=== PATIENT | female | born 1975 | race Caucasian/White ===

== ENCOUNTER 2024-06-07 09:37 | Inpatient (IN) ==
--- NOTE | 2024-05-08 12:37 | PAT Medication Instructions ---
Medication Instructions Date of Service May 08, 2024 Home Medications Medication Instructions Recorded cyclobenzaprine 10 mg tablet 10 mg PO HS PRN spasms #30 tabs 10/08/22 ondansetron 4 mg disintegrating 4 mg PO Q6H PRN nausea and 11/09/22 tablet vomiting #20 tabs Wheelchair (Manual) #1 ea 06/23/23 Medication List: acyclovir 400 mg tablet 400 mg PO BID amitriptyline 150 mg tablet 150 mg PO HS chlorhexidine gluconate 0.12 % mouthwash 1 applic PO BID cyclobenzaprine 10 mg tablet 10 mg PO TID PRN Pain duloxetine 60 mg capsule,delayed release 120 mg PO QAM fluoride (sodium) 1.1 % dental cream (SF 5000 Plus) 1 applic dental BID fluticasone propionate 50 mcg/actuation nasal spray,suspension 1 spray intranasal QAM PRN Nasal Congestion ibuprofen 800 mg tablet 800 mg PO QAM PRN Pain levothyroxine 75 mcg tablet 75 mcg PO QAM methylprednisolone 4 mg tablet (Medrol) 4 mg PO QAM mometasone 0.1 % topical cream 1 applic topical UD mycophenolate mofetil 250 mg capsule 500 mg PO BID chest inflammation nystatin 100,000 unit/mL oral suspension 100,000 unit PO UD PRN Skin Irritation omeprazole 40 mg capsule,delayed release 40 mg PO QAM pilocarpine HCl 7.5 mg tablet (Salagen (pilocarpine)) 7.5 mg PO TID pramipexole 0.25 mg tablet 0.75 mg PO HS Lactobacillus acidophilus 250 million cell capsule (Probiotic Acidophilus) 1,000 mmu cells PO QAM ferrous sulfate 140 mg (45 mg iron) tablet,extended release 140 mg PO QAM cyclobenzaprine 10 mg tablet 10 mg PO HS PRN spasms ondansetron 4 mg disintegrating tablet 4 mg PO Q6H PRN nausea and vomiting methadone 10 mg tablet 103 mg PO QAM apple cider vinegar 300 mg tablet 300 mg PO QAM belimumab 200 mg/mL subcutaneous auto-injector (Benlysta) 200 mg subcut WK bisacodyl 5 mg tablet,delayed release (Dulcolax (bisacodyl)) 5 mg PO HS PRN Constipation magnesium 200 mg tablet 400 mg PO DAILY nadolol 20 mg tablet 20 mg PO QAM naloxegol 25 mg tablet (Movantik) 25 mg PO QAM nicotine 5 mg/16 hr daily transdermal patch 5 mg transdermal DAILY scopolamine base 1 mg over 3 days transdermal patch 1 patch transdermal Q72H PRN Nausea And Vomiting zinc 10 mg tablet 10 mg PO DAILY MEDICATION INSTRUCTIONS: Continue as directed fluoride (sodium) 1.1 % dental cream (SF 5000 Plus) 1 applic dental BID fluticasone propionate 50 mcg/actuation nasal spray,suspension 1 spray intranasal QAM PRN Nasal Congestion nicotine 5 mg/16 hr daily transdermal patch 5 mg transdermal DAILY (do not apply near surgical area day of surgery) scopolamine base 1 mg over 3 days transdermal patch 1 patch transdermal Q72H PRN Nausea And Vomiting chlorhexidine gluconate 0.12 % mouthwash 1 applic PO BID (do not swallow AM of surgery) mometasone 0.1 % topical cream 1 applic topical UD (do not apply near surgical area day of surgery) nystatin 100,000 unit/mL oral suspension 100,000 unit PO UD PRN Skin Irritation (do not swallow AM of surgery) ASK your surgeon for instructions ibuprofen 800 mg tablet 800 mg PO QAM PRN Pain STOP taking 2 weeks before surgery apple cider vinegar 300 mg tablet 300 mg PO QAM DO NOT take the morning of surgery zinc 10 mg tablet 10 mg PO DAILY Lactobacillus acidophilus 250 million cell capsule (Probiotic Acidophilus) 1,000 mmu cells PO QAM ferrous sulfate 140 mg (45 mg iron) tablet,extended release 140 mg PO QAM magnesium 200 mg tablet 400 mg PO DAILY pilocarpine HCl 7.5 mg tablet (Salagen (pilocarpine)) 7.5 mg PO TID naloxegol 25 mg tablet (Movantik) 25 mg PO QAM Take morning of surgery With a small sip of water, OTHERWISE NOTHING TO EAT OR DRINK AFTER MIDNIGHT: cyclobenzaprine 10 mg tablet 10 mg PO TID PRN Pain acyclovir 400 mg tablet 400 mg PO BID levothyroxine 75 mcg tablet 75 mcg PO QAM duloxetine 60 mg capsule,delayed release 120 mg PO QAM methylprednisolone 4 mg tablet (Medrol) 4 mg PO QAM ondansetron 4 mg disintegrating tablet 4 mg PO Q6H PRN nausea and vomiting nadolol 20 mg tablet 20 mg PO QAM omeprazole 40 mg capsule,delayed release 40 mg PO QAM Take evening before surgery cyclobenzaprine 10 mg tablet 10 mg PO TID PRN Pain acyclovir 400 mg tablet 400 mg PO BID cyclobenzaprine 10 mg tablet 10 mg PO HS PRN spasms pramipexole 0.25 mg tablet 0.75 mg PO HS amitriptyline 150 mg tablet 150 mg PO HS ondansetron 4 mg disintegrating tablet 4 mg PO Q6H PRN nausea and vomiting bisacodyl 5 mg tablet,delayed release (Dulcolax (bisacodyl)) 5 mg PO HS PRN Constipation pilocarpine HCl 7.5 mg tablet (Salagen (pilocarpine)) 7.5 mg PO TID Other Notes Check with Prescriber for Instructions: belimumab 200 mg/mL subcutaneous auto-injector (Benlysta) 200 mg subcut WK mycophenolate mofetil 250 mg capsule 500 mg PO BID chest inflammation methadone 10 mg tablet 103 mg PO QAM If you have any questions please call us at [phone] or [phone] or [phone] or [phone]
--- NOTE | 2024-05-14 13:28 | Anesthesiology Consultation ---
Date of Service May 14, 2024 Assessment & Plan (1) Encounter for pre-operative examination: - awaiting [facility] PCP and cardiology clearances. Optimization forms and PAT testing to be faxed to the offices. - hyponatremia at 128. I called [facility] PCP office and spoke with nurse Desai regarding Na at 128 and episodes of presyncope. She advised will send message to Dr. Mary Lang listed as PCP in their system. I also contacted [facility] cardiology and Katelynn confirmed she will relay message to cardiology provider for further evaluation/management. - 3 episodes of presyncope over past 6 months-most recent episode last week- patient states takes BP and notes is usually 70s/50s when feeling lightheaded- states that she feels alert and will sit down and eat which improves symptoms- notes she is eating one meal daily due to GI symptoms/uterine adenomyosis-pelvic ultrasound scheduled later this week at [facility] and has upcoming appointment with [facility] per patient. Denies dizziness/lightheadedness/presyncope today. Denies falls or notifying cardiology of these symptoms/signs. She was advised to contact her PCP and cardiology offices regarding the combination of these symptoms/signs and was advised clearance will be needed. She verbalized understanding and denied questions or concerns. - check urine test STAT am DOS. - neurology office visit 02/23/24: "...She reports that she sleepwalks and that she has significant difficulty maintaining sleep. She also complains of memory issues...scores 25/30 on cognitive assessment which is consistent with mild cognitive impairment, borderline for normal. We discussed her abnormal sleep pattern and she is in agreement to proceed with an EEG routine study to evaluate for seizure or seizure potential...Today she scores 25/30 on cognitive asses sment. She refuses MRI brain at this time. Vitamin B12 and TSH checked recently were normal. #2 sleepwalking and transient amnesia. We will obtain an EEG routine study to rule out seizure or seizure potential. We will also refer for sleep medicine evaluation..." EEG not completed and patient did not keep follow-up appointment. - cardiology office note 02/13/24: "...presents today for a second opinion regarding chest pain and abnormal EKG. Previously seen at [facility] with negative nuclear stress test last month. Long QT based on previous and recent EKGs. No syncope, near syncope or family history SCD. Limited activity due to previous hip surgery and lupus, walks with cane. Vague symptoms lightheadedness...a couple of times per month lasting seconds, ears feel numb...Long QT- unfortunately she is on various medications which can prolong her QT interval. Without syncope would not change any at this time but has been cautioned regarding adding more prolonging QT agents...start nadolol 20 mg daily-report fainting..." - Case discussed in detail with Dr. Alfaro who agreed with patient needing medical and cardiology clearances, he advised patient does not need neurology ordered testing or clearance prior to surgery. Chart Review Chart Review: Pending: Refer to Additional Notes / Consult section and Patient seen in Pre Admission Testing Teaching & Discussion Pre-Anesthesia Teaching/Discussion Notes: Instructed NPO after midnight before surgery, except medications with 15 cc of water. Medication instructions provided according to the PAT guidelines. History Surgery Operation Date: 06/07/24 11:05 Proposed Procedures p Right Hip Endoscopy, Open Gluteal Tendon Repair with Allograft, Gluteus Giles and Ilieotibial Repair with Possible Allograft - Manjit Gold MD Height/Weight Height: 5 ft 7 in Weight: 78.9 kg Allergies Allergy/AdvReac Type Severity Reaction Status Date / Time cefuroxime Allergy Intermediate Rash Verified 05/14/24 12:50 Medications Home Medications Medication Instructions Recorded Confirmed Last Taken acyclovir 400 mg tablet 400 mg PO BID 09/17/22 05/14/24 10/06/22 20:00 amitriptyline 150 mg tablet 150 mg PO HS 09/17/22 05/14/24 10/06/22 20:00 chlorhexidine gluconate 0.12 % 1 applic PO BID 09/17/22 05/14/24 10/07/22 09:30 mouthwash cyclobenzaprine 10 mg tablet 10 mg PO TID PRN Pain 09/17/22 05/14/24 10/06/22 11:00 duloxetine 60 mg capsule,delayed 120 mg PO QAM 09/17/22 05/14/24 10/06/22 11:00 release levothyroxine 75 mcg tablet 75 mcg PO QAM 09/17/22 05/14/24 10/06/22 06:00 methylprednisolone 4 mg tablet 4 mg PO QAM 09/17/22 05/14/24 10/06/22 11:00 (Medrol) mometasone 0.1 % topical cream 1 applic topical UD 09/17/22 05/14/24 10/06/22 mycophenolate mofetil 250 mg 500 mg PO BID chest inflammation 09/17/22 05/14/24 10/06/22 11:00 capsule nystatin 100,000 unit/mL oral 100,000 unit PO UD PRN Skin 09/17/22 05/14/24 10/06/22 suspension Irritation pilocarpine HCl 7.5 mg tablet 7.5 mg PO TID 09/17/22 05/14/24 10/06/22 20:00 (Salagen (pilocarpine)) pramipexole 0.25 mg tablet 0.75 mg PO HS 09/17/22 05/14/24 10/06/22 23:00 ferrous sulfate 140 mg (45 mg 140 mg PO QAM 10/05/22 05/14/24 10/06/22 11:00 iron) tablet,extended release cyclobenzaprine 10 mg tablet 10 mg PO HS PRN spasms #30 tabs 10/08/22 05/14/24 Unknown ondansetron 4 mg disintegrating 4 mg PO Q6H PRN nausea and 11/09/22 05/14/24 Unknown tablet vomiting #20 tabs Wheelchair (Manual) #1 ea 06/23/23 05/14/24 Unknown methadone 10 mg tablet 103 mg PO QAM 10/25/23 05/14/24 Unknown apple cider vinegar 300 mg tablet 300 mg PO QAM 05/02/24 05/14/24 Unknown belimumab 200 mg/mL subcutaneous 200 mg subcut WK 05/02/24 05/14/24 Unknown auto-injector (Benlysta) bisacodyl 5 mg tablet,delayed 5 mg PO HS PRN Constipation 05/02/24 05/14/24 Unknown release (Dulcolax (bisacodyl)) magnesium 200 mg tablet 400 mg PO DAILY 05/02/24 05/14/24 Unknown nadolol 20 mg tablet 20 mg PO QAM 05/02/24 05/14/24 Unknown naloxegol 25 mg tablet (Movantik) 25 mg PO QAM 05/02/24 05/14/24 Unknown nicotine 5 mg/16 hr daily 5 mg transdermal DAILY 05/02/24 05/14/24 Unknown transdermal patch scopolamine base 1 mg over 3 days 1 patch transdermal Q72H PRN 05/02/24 05/14/24 Unknown transdermal patch Nausea And Vomiting zinc 10 mg tablet 10 mg PO DAILY 05/02/24 05/14/24 Unknown Past Medical History Medical History (Updated 05/14/24 @ 13:51 by Liz Michael PA-C) Anxiety Bruises easily Chronic cough r/t long covid Chronic headaches Chronic prescription opiate use Chronic steroid use Depression Fibromyalgia GERD (gastroesophageal reflux disease) controlled, stable per pt Hip pain riht History of COVID-25 October 2020. altered taste still today. chronic cough. History of small bowel obstruction (~04/2024) hospitalized x 2 days 04/2024; patient states is back at baseline Hx MRSA infection (2021) I&D right hip Hypertension no current medications Hypothyroidism Low back pain Neuropathy bilat feet Pleurisy states current flare up on left side; result of lupus Post traumatic stress disorder Prolonged QT interval states on nadolol for this; follows w/ Dr Matt Mares in [place] (pcp/cardio) Restless leg syndrome Systemic lupus Follows with Rheumatology out of [place], [place] Patient denies h/o stroke, seizures, heart attack, heart failure, DM,blood clots/DVTs or blood transfusions. Exercise / Class Metabolic Activity III < 4 Walking/Shop/Light housework (denies chest discomfort or shortness of breath with usual activities, ambulates with cane) Past Family History Family History Other No family history of adverse response to anesthesia Past Surgical History Surgical History History of carpal tunnel release right carpal tunnel release History of cholecystectomy History of colonoscopy History of hip surgery x 2 right hip Past Anesthesia History No Hx of Anesthesia Complications and No Family Hx of Anesthesia Complications History of PONV No Hx of PONV and Hx of Motion Sickness Social History Smoking Status: Current every day smoker tobacco type: cigarettes Smoking cigarettes per day: 5 per day- advised Do You Dip or Chew Tobacco: No Hx Alcohol Use: No Hx Substance Use: No substance use type: does not use Review of Systems Patient denies chest pain, shortness of breath, dyspnea on exertion, snoring, witnessed apneas, fever, chills, cough, wheezing, or palpitations. Physical Exam Vital Signs Vitals BP 128/82 P 79 TEMP 98.6 SP02 95% on RA RESP 18 Physical Patient resting comfortably in chair in no acute distress, alert and oriented, responding appropriately throughout visit Full cervical extension range of motion without pain TMD 3.5 finger breadths Mallampati Score 3 Dentition: several broken teeth and crown right lower back; denies loose teeth, caps, implants or bridges Lungs: normal respiratory effort. Good air movement, clear throughout to auscultation, no adventitious breath sounds Cardiac: regular rate and rhythm, no murmurs noted Carotid arteries: negative bruit bilat Lab Results Anesthesia Preop Results Results Anesthesia Widget: WBC 12.19 K/ul (4.8-10.8) H 05/14/24 Hgb 13.3 g/dl (12.0-16.0) 05/14/24 Hct 40.9 % (37.0-47.0) 05/14/24 Plt 680 K/uL (130-400) H 05/14/24 Na 128 mmol/L (136-145) L 05/14/24 K 4.6 mmol/L (3.5-5.1) 05/14/24 Cl 93 mmol/L (98-107) L 05/14/24 CO2 30 mmol/L (21-32) 05/14/24 BUN 6 mg/dl (6-23) 05/14/24 Creat 0.72 mg/dl (0.6-1.2) 05/14/24 Glucose Level 93 mg/dl (70-99(Fasting)) 05/14/24 PT 9.9 Seconds (9.0-12.0) 05/14/24 PTT 29 Seconds (21-31) 05/14/24 INR 0.9 (0.9-1.1) 05/14/24 Testing Electrocardiogram Date: 03/16/24 NSR, rate 83 bpm Possible LA enlargement Incomplete RBBB Prolonged QT interval or tu fusion, consider myocardial disease, electrolyte imbalance or drug effects Chest X-Ray Date: 10/03/23 *1view* Cardiomediastinal silhouette is unchanged. Lungs are clear. No pleural effusion. No pneumothorax. Echocardiogram Date: 08/14/20 EF 55-60% Mild LVH Grade I diastolic dysfunction Normal LV wall motion No significant valvular pathology
[2024-06-07] MEDS ORDERED: ATROPINE SULFATE 0.1 MG/ML 10ML SYR IV PRN (10:12)
[2024-06-07] MEDS ORDERED: ePHEDrine sulfate 50 MG/ML AMP IV PRN (10:12)
[2024-06-07] MEDS ORDERED: MIDAZOLAM HCL 1 MG/ML 2ML VIAL ONE (10:13)
[2024-06-07] MEDS ORDERED: fentaNYL citrate PF 100 MCG/2 ML VIAL ONE (10:13)
--- NOTE | 2024-06-07 10:17 | History & Physical Bridge Note ---
Date of Service June 07, 2024 History & Physical Bridge Note I have examined the patient, reviewed the History & Physical and in the interval since the performance of the History & Physical I have noted the following changes of clinical significance: She has been seen/evaluated by her pain management doctor and the plan for pain managed was been put in place. In addition, she has been seen by cardiology that risk stratified her and cleared her for surgery. She has discontinued her DMARDs for her lupus for the last 4 weeks. She does have a expected rise in her platelets. She said it chronically mildly elevated white blood cell count since November. She remains with complicating medical comorbidities but is adequately managed to proceed today. Will defer to anesthesia on the sodium level which was evaluated by her primary care. Will plan for hospitalist consult postoperatively for the multiple medical comorbidities. I explained to her that the endoscopy at the beginning of this procedure is to determine if there is any evidence of infection. If there is, this to be a washout surgery to address an indolent infection. Were also prepared to repair as possible to try to improve her pain and function. She was agreeable to the plan and the informed consent was reviewed and confirmed.
[2024-06-07] MEDS ORDERED: diphenhydrAMINE 50 MG/ML VIAL ONE ×2 (10:20→12:45)
[2024-06-07] MEDS ORDERED: LIDOCAINE 2% 2 ML VIAL/AMP(20MG/ML) INFIL ONE (10:20)
[2024-06-07] MEDS ORDERED: PROPOFOL IV EMULSION 10 MG/ML 20 ML VIAL IV ONE (10:20)
[2024-06-07] MEDS ORDERED: DEXAMETHASONE SOD INJ 4 MG/ML VIAL ONE (10:20)
[2024-06-07] MEDS ORDERED: GLYCOPYRROLATE 0.2 MG/ML VIAL ONE ×3 (10:20→13:00)
[2024-06-07] MEDS ORDERED: ROCURONIUM BROMIDE 10 MG/ML 5 ML VIAL IV ONE (10:20)
[2024-06-07] MEDS ORDERED: ONDANSETRON INJ 2 MG/ML 2 ML VIAL ONE (10:20)
[2024-06-07] MEDS: LR 15ML/HR IV SCH (10:25)
[2024-06-07] MEDS: ACETAMINOPHEN 500 MG TAB PO SCH (10:26)
[2024-06-07] MEDS ORDERED: REMIFENTANIL HCL 1 MG VIAL IV ONE (10:26)
[2024-06-07] MEDS: SCOPOLAMINE 1 MG/72 HR TDSY PATCH TD ONE (10:26)
[2024-06-07 10:41] LABS: Basophils # (auto) 0.11 K/uL (0.00-0.20); Basophils % (auto) 0.8 %; Eosinophils % (auto) 3.8 %; Hematocrit (blood only) 36.9 % (37.0-47.0); Hemoglobin 12.6 g/dl (12.0-16.0); Immature Granulocytes # (auto) 0.05 K/uL (0.01-0.20); Immature Granulocytes % (auto) 0.4 %; Lymphocytes # (auto) 1.78 K/uL (1.20-3.40); Lymphocytes % (auto) 13.6 %; Mean Corpuscular Hemoglobin 29.5 pg (25.0-34.0); Mean Corpuscular Hgb Conc 34.1 g/dL (32.0-36.0); Mean Corpuscular Volume 86.4 fL (80.0-100.0); Mean Platelet Volume 8.3 fL (9.4-12.4); Monocytes # (auto) 0.87 K/uL (0.11-0.59); Monocytes % (auto) 6.6 %; Neutrophils % (auto) 74.8 %; Platelet Count 444 K/uL (130-400); RDW Coefficient of Variation 14.3 % (11.5-14.5); RDW Standard Deviation 44.9 fL (36.4-46.3); Red Blood Count 4.27 M/uL (4.20-5.40); White Blood Count 13.11 K/ul (4.8-10.8)
[2024-06-07] MEDS: ceFAZolin 2000MG 2,000 MG/15 ML SYR IV SCH ×2 (10:48→20:15)
[2024-06-07] MEDS: TRANEXAMIC ACID 1,000 MG **IV Pre-op IV SCH (11:03)
[2024-06-07] MEDS ORDERED: ePHEDrine sulfate 50 MG/5 ML SYR ONE (11:09)
[2024-06-07] MEDS ORDERED: PHENYLEPHRINE HCL 10 MG/ML VIAL ONE (11:22)
[2024-06-07] MEDS: BUPIVACAINE/EPINEPHRINE 0.25% 1:200,000 30 ML VIAL ONE (11:44)
[2024-06-07] MEDS ORDERED: NEOSTIGMINE METHYLSULFATE 1 MG/ML 10ML VIAL ONE (13:00)
[2024-06-07] MEDS: VANCOMYCIN HCL 1000MG/20ML VIAL ONE (13:17)
[2024-06-07] MEDS ORDERED: NALOXONE HCL 0.4 MG/1 ML VIAL/CARP IV PRN (13:52)
[2024-06-07] MEDS ORDERED: ONDANSETRON INJ 2 MG/ML 2 ML VIAL IV PRN (13:52)
[2024-06-07] MEDS ORDERED: METOCLOPRAMIDE HCL INJ 5 MG/ML 2 ML VIAL IV PRN (13:52)
[2024-06-07] MEDS ORDERED: bisacodyL 10 MG SUPP PR PRN (13:52)
[2024-06-07] MEDS ORDERED: HYDROmorphone INJ 2 MG/ML SYR/VIAL ONE (13:58)
--- OUTSIDE RECORDS SUMMARY | 2024-06-07 14:35 | External Medical Summary | Summary of Care ---
Author Name Unknown Organization [facility] Address 1 [facility] [place] [address] Care Team Providers Care Core Driller Helper Name Role Phone Sharer, Mary Raymond MD Primary Care Provider Reason for Visit * Reason Onset Date Comments Medication Pre-auth 06/06/2024 Pilocarpine Encounter Details Date Type Department Care Team (Late st Contact Info) Description 06/06/2024 Telephone [facility]ologyN[facility] [address] 1st Floor [place] [phone] Emily Merino MD [address] [place] [address] [place] [id number] Medication Pre-auth (Pilocarpine) Allergies Active Allergy Reactions Criticality Noted Date Comments Cefuroxime 05/02/2023 Bupropion 05/02/2023 documented as of this encounter (statuses as of 06/06/2024) Medications Medication Sig Dispensed Refills Start Date End Date Status Blood Pressure KITIndications:Essent ial hypertension with goal blood pressure less than 140/90 Check your blood pressure daily. 1 Kit 01/25/2020 Active Ferrous Sulfate 325 (65 Fe) MG Oral Tablet (Feosol)Indications:L ow ferritin Take 1 Tab by mouth 2 times a day with morning and evening meals. 60 Tab 3 02/03/2021 Active Movantik 25 MG Oral Tablet (Naloxegol Oxalate) Take 1 Tablet by mouth. Active Methadone 50 mg/ml oral soln (ECH) Take 103 mg by mouth daily Active Fluticasone Propionate 50 MCG/ACT Nasal Suspension (Flonase)Indications: Post-nasal drip Administer 2 Sprays into each nostril in the morning. 18.2 mL 11 07/27/2023 Active Pramipexole Dihydrochloride 0.25 MG Oral Tablet (Mirapex)Indications: Restless legs syndrome TAKE 2 OR 3 TABLETS BY MOUTH NIGHTLY 1 HOUR BEFORE BEDTIME 180 Tablet 5 01/04/2024 Active Omeprazole 40 MG Oral Capsule Delayed Release (PriLOSEC)Indications :Gastro-esophageal reflux disease without esophagitis Take 1 Capsule by mouth in the morning. 90 Capsule 3 01/04/2024 Active Naloxone HCl 4 MG/0.1ML Nasal Liquid (Narcan Nasal)Indications:Hig h risk medication use Administer 0.1 mL into nostril as needed (sedation, respiratory suppresion). Administer 1 spray into 1 nostril for suspected opioid overdose. Seek immediate medical attention. [email or web address] 1 Each 3 01/04/2024 Active methylPREDNISolone 4 MG Oral Tablet (Medrol) Take 1 Tablet by mouth in the morning. 01/20/2024 Active Transderm-Scop 1 MG/3DAYS Transdermal Patch 72 HourIndications:Nause a Place 1 Patch over 72 hours topically on the skin every 3 days. 4 hours before event. May replace every 3 days. . 24 Patch 1 01/20/2024 Active Pilocarpine HCl 7.5 MG Oral Tablet TAKE 1 TABLET BY MOUTH THREE TIMES DAILY 90 Tablet 11 02/07/2024 Active Amitriptyline HCl 150 MG Oral Tablet (Elavil) Take 1 Tablet by mouth at bedtime. 90 Tablet 3 02/07/2024 Active Mometasone Furoate 0.1 % External CreamIndications:Syst emic lupus erythematosus, unspecified SLE type, unspecified organ involvement status (HCC) Apply topically to affected area daily. Apply to skin 45 g 1 02/23/2024 Active Chlorhexidine Gluconate 0.12 % Mouth/Throat Solution (Periogard) USE 15ML BY MOUTH TWO TIMES DAILY FOR 7 DAYS DIRECTED Active Mag-G 500 (27 Mg) MG Oral Tablet (Magnesium Gluconate) Take 500 mg by mouth. 12/08/2022 Active Milk Thistle Seed Powder Use as directed. Active Vitamin C 125 MG Oral Tablet Chewable Take by mouth. Activ e Zinc 20 MG Oral Capsule Take by mouth. Active Lidocaine 5 % External Patch (Lidoderm)Indications :Polyneuropathy, unspecified Place 1 Patch over 12 hours topically on the skin daily. 30 Patch 2 03/16/2024 Active Acyclovir 400 MG Oral Tablet (Zovirax)Indications: Fibromyalgia TAKE 1 TABLET BY MOUTH TWO TIMES DAILY 60 Tablet 3 04/03/2024 Active Nicotine 14 MG/24HR Transdermal Patch 24 Hour (Nicoderm CQ) Place 1 Patch over 24 hours topically on the skin daily. 14 Patch 04/04/2024 Active Mycophenolate Mofetil 250 MG Oral Capsule (Cellcept)Indications :Systemic lupus erythematosus, unspecified SLE type, unspecified organ involvement status (HCC) Take 2 Capsules by mouth in the morning and 2 Capsules before bedtime 120 Capsule 11 04/12/2024 Active DULoxetine HCl 60 MG Oral Capsule Delayed Release Particles (Cymbalta)Indications :Fibromyalgia Take 2 Capsules by mouth in the morning. 180 Capsule 1 05/15/2024 Active Benlysta 200 MG/ML Subcutaneous Solution Auto-injector (Belimumab)Indication s:Systemic lupus erythematosus, unspecified SLE type, unspecified organ involvement status (HCC) Inject 1 mL (1 pen) under the skin once a week. 4 mL 11 05/22/2024 Active Cyclobenzaprine HCl 10 MG Oral Tablet (Flexeril) TAKE 1 TABLET BY MOUTH THREE TIMES DAILY NEEDED 90 Tablet 2 05/24/2024 Active Nadolol 20 MG Oral Tablet (Corgard) Take 1 Tablet by mouth in the morning. 30 Tablet 6 05/29/2024 Active documented as of this encounter (statuses as of 06/06/2024) Active Problems Problem Noted Date Diagnosed Date Encounter for screening mamm ogram for malignant neoplasm of breast 05/16/2024 HTN, goal below 130/80 05/16/2024 Long QT syndrome 05/16/2024 Fatty (change of) liver, not elsewhere classifie d 11/28/2023 Polyneuropathy, unspecified 11/28/2023 Incomplete RBBB 11/28/2023 S/P cholecystectomy 11/28/2023 Sicca syndrome 11/28/2023 Cyst of right ovary 07/26/2023 PMB (postmenopausal bleeding) 07/15/2023 Encounter for gynecological examination with abnormal finding 07/15/2023 Post covid-19 condition, unspecified 06/27/2023 meterman current use of systemic steroids 06/27 Food insecurity 06/15/2021 Overview: Per [email or web address] Protocol History of 2018 novel coronavirus disease (COVID -19) 11/10/2020 Restless legs syndrome 11/10/2020 Unspecified fracture of left calcaneus, initial encounter for closed fracture 11/10/2020 Gastro-esophageal reflux disease without esophag itis 11/10/2020 Essential (primary) hypertension 11/10/2020 Fibromyalgia 05/01/2020 Carpal tunnel syndrome 05/01/2020 Depression with anxiety 05/01/2020 DUB (dysfunctional uterine bleeding) 09/26/2019 Menorrhagia with irregular cycle 08/28/2019 BI-RADS category 3 mammogram result 08/28/2019 Lupus (systemic lupus erythematosus) 07/10/2019 Hypothyroidism 07/10/2019 Anxiety state 09/18/2014 documented as of this encounter (statuses as of 06/06/2024) Resolved Problems Problem Noted Date Diagnosed Date Resolved Date Opioid use, unspecified, uncomplicated 05/02/2023 11/28/2023 Recurrent major depressive d isorder, in partial remission 11/10/2020 01/20/2024 Major depressive disorder, s lydia episode, unspecified 11/10/2020 05/02/2023 High risk medication use 05/01/2020 Benign-appearing endometrial cells on cervical Pap smear 09/26/2019 03/16/2024 Major depressive disorder, r ecurrent, unspecified 09/13/2019 01/20/2024 Hemorrhagic cyst of left ovary 08/29/2019 05/02/2023 Asthma, allergic 11/12/2002 05/04/2010 documented as of this encounter (statuses as of 06/06/2024) Immunizations Name Administration Dates Next Due COVID-19 mRNA, LNP-s, No Pre serve, 2-Dose Series (Moderna) 02/09/2021,01/07/2021,01/07/2021 Hepatitis B, 20+ yrs 03/16/2024 Pneumococcal Conjugate Vacci ne, 20-valent ([id number]) 05/02/2023 TD - Tetanus/Diptheria (ADULT) 06/17/1999 TDAP (age 10 and older)(Boostrix) 05/01/2020 Zoster Vaccine Recombinant (Shingrix) 03/16/2024 documented as of this encounter Social History Tobacco Use Types Packs/Day Years Used Date Smoking Tobacco: Former Cigarettes 0.3 10 0 03/18/2004 - 03/18/2014 Smokeless Tobacco: Never Alcohol Use Standard Drinks/Week Comments Not Currently 0 (1 standard drink = 0.6 oz pur e alcohol) PHQ-2 Answer Date Recorded PHQ Adult Total Score 2 05/21/2024 Hunger Vital Sign Answer Date Recorded Within the past 12 months, y ou worried that your food would run out before you got the money to buy more. Sometimes true Within the past 12 months, t he food you bought just didn't last and you didn't have money to get more. Sometimes true Childcare Answer Date Recorded Do you feel overwhelmed with taking care of a child, family member or friend? Yes 01/19/2024 Does your family need help f inding childcare? (Household - for ages 0-17 years) Not on file 01/19/2024 Clothing Answer Date Recorded Have you been unable to get clothing when it was really needed? No 01/19/2024 Is your family able to get c lothes or diapers when needed? (Household - for ages 0-17 years) Not on file 01/19/2024 Personal Safety Answer Date Recorded Do you feel unsafe or have concerns for your saf ety? No 01/19/2024 Do you have concerns for you r family's safety? (Household - for ages 0-17 years) Not on file 01/19/2024 Utilities Answer Date Recorded Do you have trouble paying y our heating, water, or electric bill? Yes 01/19/2024 Is your family able to pay t he heat, water, or electric bill? (Household - for ages 0-17 years) Not on file 01/19/2024 Does your family have access to good internet? (Household - for ages 0-17 years) Not on file 01/19/2024 Employment Status Answer Date Recorded Are you unemployed or without regular income? No 01/19/2024 Does the household have a re gular source of income? (Household - for ages 0-17 years) Not on file 01/19/2024 Social Connections Answer Date Recorded How often do you feel lonely or isolated from th ose around you? Often 01/19/2024 Financial Resource Strain Answer Date R ecorded Do you have any trouble payi ng for your medications, or do you think you might in the future? No 01/19/2024 Does your family have troubl e paying for medicine? (Household - for ages 0-17 years) Not on file 01/19/2024 Transportation Needs Answer Date Record ed READ ONLY Do you have troubl e getting a ride to medical visits or work? Sometimes True 01/19/2024 Does your family have a hard time getting a ride to doctors visits? (Household - for ages 0-17 years) Not on file 01/19/2024 Has lack of transportation k ept you from medical appointments, meetings, work, or from getting things needed for daily living? Check all that apply. (Adult - for ages 18 years and over) Not on file 01/19/2024 Do you (or your family) have trouble finding or paying for a ride (transportation)? (Household - for ages 0-17 years) Not on file 01/19/2024 Housing Stability Answer Date Recorded Do you currently live in a s helter or have no steady place to sleep at night? No 01/19/2024 READ ONLY Do you think you a re at risk of becoming homeless? No 01/19/2024 Does your family worry about paying for your home or becoming homeless? (Household - for ages 0-17 years) Not on file 0 01/19/2024 Are you homeless or worried that you might be in the future? (Adult - for ages 18 years and over) Not on file Are you (or your family) maribel eless or worried that you might be in the future? (Household - for ages 0-17 years) Not on file Food Insecurity Answer Date Recorded Do you need food for this week? No 01/19/2024 Are you able to get enough f ood for your family? (Household - for ages 0-17 years) Not on file 01/19/2024 Does your family need food t his week? (Household - for ages 0-17 years) Not on file 01/19/2024 Do you always have enough fo od for your family? (Household - for ages 0-17 years) Not on file 01/19/2024 Education Answer Date Recorded What is the highest level of school you have completed or the highest degree you have received? Associate degree: academic program 02/24/2024 Sex and Gender Information Value Date Recorded Sex Assigned at Female 10/25/2019 11:24 AM EST Gender Identity Female 10/25/2019 11:24 AM EST Sexual Orientation Straight 10/25/2019 11 :24 AM EST Job Start Date Occupation Industry Not on file Not on file Not on file documented as of this encounter Miscellaneous Notes * Telephone Encounter - Sneha Sahu MED ASSIST - 06/06/2024 10:43 AM EDT Images from the original note were not included. documented in this encounter Plan of Treatment Upcoming Encounters Date Type Department Care Team (Late st Contact Info) Description 06/21/2024 11:30 AM EDT Appointment Radiology, [facility] [address] [place] [address] 07/06/2024 2:15 PM EDT Office Visit Gynecology Urology, [place] [address] [place] [address] Shania Klein MD [address] [place], [place] [id number] [place] Nurse Polishing Machine Operator [facility] [address] [place] [address] 08/22/2024 11:30 AM EDT Telemedicine Psychiatry [facility] [address] [place] [phone] Mal Gonzalez DO [address] [place] [address] 08/27/2024 11:20 AM EDT Office Visit Rheumatology, [address] 1st Floor [place] [phone] Emily Merino MD [address] [place] [address] [place] [address] 09/10/2024 8:20 AM EST Office Visit [facility] [address] [place] [address] SharerMary MD [address] [facility] [address] 12/04/2024 11:00 AM EST [facility] 1st Floor [place] [phone] Emily Merino MD [address] [place] [address] [place] [address] Health Maintenance Due Date Last Done Comments HIV Screening 01/22/1988 Cologuard 2018 Fecal Occult Blood Test 2018 Sigmoidoscopy 2018 COVID-19 Vaccine ( season) 2023 02/09/2021, 01/07/2021, 01/07/2021 Hepatitis B Vaccine (2 of 3 - 19+ 3-dose series) 04/13/2024 03/16/2024 Zoster Vaccines (2 of 2) 05/11/2024 03/16/2024 Mammogram 06/21/2024 06/21/2023, 0311/2020, 02/13/2020, Additional history exists Influenza Vaccine (FLU shot) (#1) 2024 Depression Monitoring 05/21/2025 05/21/2024 GFR 06/04/2025 06/04/2024, 07/0 06/2024, 03/16/2024, Additional history exists Albumin/Creatinine Ratio 06/25/2026 06/25/2023 Pap Smear 07/15/2026 07/15/2023, 08/28/2019 Diabetes Screening 06/04/2027 06/04/2024, 0 05/14/2024, 03/16/2024, Additional history exists Colonoscopy 12/09/2027 12/09/2022, 12/09/2022 Colorectal Cancer Screening 12/09/2027 Lipid Panel 06/25/2028 06/25/2023, 07/09, 01/09/2019 Cervical Cancer Screening 07/15/2028 HPV/Co-Test 07/15/2028 07/15/2023 DTaP,Tdap,and Td Vaccines (2 - Td or Tdap) 05/01/2030 05/01/2020, 06/17/1999 Pneumococcal Vaccine: Pediatrics (0 to 5 Years) and At-Risk Patients (6 to 64 Years) Completed 05/02/2023 Hepatitis C Screening Completed 02/23/2024, 015 HPV (Gardasil) Vaccine Aged Out No lo nger eligible based on patient's age to complete this topic MENINGOCOCCAL (MENACTRA/MENVEO) Aged Out No longer eligible based on patient's age to complete this topic documented as of this encounter Medical Devices Not on filedocumented as of this encounter Care Teams Core Driller Helper Relationship Specialty Start Date End Date Sharer, Mary Raymond MD [address] [place] [address] PCP - General Family Medicine 02/16/24 documented as of this encounter
--- OUTSIDE RECORDS SUMMARY | 2024-06-07 14:35 | External Medical Summary | Summary of Care ---
Author Name Unknown Organization [facility] Address 1 [facility] [place] [address] Care Team Providers Care Time Piece Repairer Name Role Phone Sharer, Mray Raymond MD Primary Care Provider [phone] Reason for Visit * Reason Onset Date Comments Medication Pre-auth 06/06/2024 Pilocarpine Encounter Details Date Type Department Care Team (Late st Contact Info) Description 06/06/2024 Telephone [facility]ologyN[facility] [address] 1st Floor [place] [phone] Emily Merino MD [address] [place] [address] [place] [phone] Medication Pre-auth (Pilocarpine) Allergies [...] suspected opioid overdose. Seek immediate medical attention. [email or web address] 1 Each 3 01/04/2024 Active methylPREDNISolone 4 [...] finding 07/15/2023 Post covid-19 condition, unspecified 06/27/2023 school bus monitor current use of systemic steroids 06/27 Food insecurity 06/15/2021 Overview: Per [facility] Protocol History of 2018 novel [...] yrs 03/16/2024 Pneumococcal Conjugate Vacci ne, 20-valent ([id number]) 05/02/2023 TD - Tetanus/Diptheria (ADULT) 06/17/1999 TDAP [...] Description 06/21/2024 11:30 AM EDT Appointment Radiology, [facility] [address] [place] [address] 07/06/2024 2:15 PM EDT Office Visit Gynecology Urology, [place] [address] [place] [address] Shania Klein MD [address] [place], [place] [id number] [place] Nurse Director Compensation [facility] [address] [place] [address] 08/22/2024 11:30 AM EDT Telemedicine Psychiatry [facility] [place] [address] [place] [phone] Mal Gonzalez DO [address] [place] [address] 08/27/2024 11:20 AM EDT Office Visit Rheumatology, [address] 1st Floor [place] [phone] Emily Merino MD [address] [place] [address] [place] [address] 09/10/2024 8:20 AM EST Office Visit [facility] [address] [place] [address] SharerMary MD [address] [place] [address] 12/04/2024 11:00 AM EST [place] [facility] 1[address] Floor [place] [phone] Emily Merino MD [address] [place] [address] [place] [address] Health Maintenance Due Date Last Done Comments [...] filedocumented as of this encounter Care Teams Time Piece Repairer Relationship Specialty Start Date End Date Sharer, Mary Raymond MD [address] [place] [address] PCP - General Family Medicine 02/16/24 documented as of this encounter
--- OUTSIDE RECORDS SUMMARY | 2024-06-07 14:36 | External Medical Summary | Summary of Care ---
Author Name Unknown Organization [facility] Address [address] [place] [address] Phone [phone] Care Team Providers Care Door And Arrival Attendant Name Role Phone Sharer, Mary Raymond MD Primary Care Provider [phone] Reason for Visit * Reason Comments Outpatient Testing Encounter Details Date Type Department Care Team (Late st Contact Info) Description 06/04/2024 10:50 AM EDT Laboratory Laboratory, [facility] [address] [place] [address] [place], Lab [address] [place] [address] MGUS (monoclonal gammopathy of unknown significance); Systemic lupus erythematosus, unspecified SLE type, unspecified organ involvement status (HCC); Hyponatremia; Systemic lupus erythematosus (HCC) Allergies Active Allergy Reactions Criticality Noted Date Comments Cefuroxime 05/02/2023 Bupropion 05/02/2023 documented as of this encounter (statuses as of 06/04/2024) Medications Medication Sig Dispensed Refills Start Date [...] suspected opioid overdose. Seek immediate medical attention. [email or web address] 1 Each 3 01/04/2024 Active methylPREDNISolone 4 [...] as of this encounter (statuses as of 06/04/2024) Active Problems Problem Noted Date Diagnosed Date [...] finding 07/15/2023 Post covid-19 condition, unspecified 06/27/2023 longterm current use of systemic steroids 06/27 Food insecurity 06/15/2021 Overview: Per [facility] Protocol History of 2019 novel coronavirus disease (COVID -19) 11/10/2020 Restless [...] as of this encounter (statuses as of 06/04/2024) Resolved Problems Problem Noted Date Diagnosed Date [...] as of this encounter (statuses as of 06/04/2024) Immunizations Name Administration Dates Next Due COVID-19 mRNA, LNP-s, No Pre serve, 2-Dose Series (Moderna) 02/09/2021,01/07/2021,01/07/2021 Hepatitis B, 20+ yrs 03/16/2024 Pneumococcal Conjugate Vacci ne, 20-valent ([id number]) 05/02/2023 TDAP (age 10 and older)(Boostrix) 05/01/2020 Zoster [...] on file documented as of this encounter Plan of Treatment Upcoming Encounters Date Type Department Care Team (Late st Contact Info) Description 06/21/2024 11:30 AM EDT Appointment Radiology, [facility] [address] [place] [address] 07/06/2024 2:15 PM EDT Office Visit Gynecology Urology, [place] [address] [place] [address] Shania Klein MD [address], [place] [phone] Nurse Eden [facility]cer [facility] [address] [place] [address] 08/22/2024 11:30 AM EDT Telemedicine Psychiatry [place] [address] [place] [phone] Mal Gonzalez DO [address] [place] [address] 08/27/2024 11:20 AM EDT Office Visit Rheumatology, [place] [facility] [address] 1st Floor [place] [phone] Emily Merino MD [address] [place] [address] 09/10/2024 8:20 AM EST Office Visit [facility] [address] [place] [address] Sharer, Mary Raymond MD [address] [facility] [address] 12/04/2024 11:00 AM EST Office Visit Rheumatology, [place] [facility] [address] 1st Floor [place] [phone] Emily Merino MD [address] [place] [address] [place] [address] Pending Results Name Type Priority Associated Diagnoses Date /Time SERUM PROTEIN ELECTROPHORESIS REFLEX PROFILE Lab Routine MGUS (monoclonal gammopathy of unknown significance) 06/04/2024 10:29 AM EDT CBC WITH WBC DIFFERENTIAL Lab Routine Systemic lupus erythematosus, unspecified SLE type, unspecified organ involvement status ([facility]) 06/04/2024 10:29 AM EDT COMPLEMENT C3 Lab Routine Systemic lupus erythematosus, unspecified SLE type, unspecified organ involvement status ([facility]) 06/04/2024 10:29 AM EDT COMPLEMENT C4 Lab Routine Systemic lupus erythematosus, unspecified SLE type, unspecified organ involvement status ([facility]) 06/04/2024 10:29 AM EDT COMPREHENSIVE METABOLIC PANEL Lab Routine Systemic lupus erythematosus, unspecified SLE type, unspecified organ involvement status ([facility]) 06/04/2024 10:29 AM EDT DOUBLE STRANDED DNA (DSDNA) ANTIBODY, IFA Lab Routine Systemic lupus erythematosus, unspecified SLE type, unspecified organ involvement status ([facility]) 06/04/2024 10:29 AM EDT CBC Lab Routine Systemic lupus erythematosus, unspecified SLE type, unspecified organ involvement status ([facility]) 06/04/2024 10:29 AM EDT DIFFERENTIAL, AUTOMATED Lab Routine Systemic lupus erythematosus, unspecified SLE type, unspecified organ involvement status ([facility]) 06/04/2024 10:29 AM EDT ANTINUCLEAR ANTIBODY ([place]) EIA SCREEN WITH REFLEX AB QUANT Lab Routine Systemic lupus erythematosus ([facility]) 06/04/2024 10:29 AM EDT ANTINUCLEAR ANTIBODY (AMERCIA) SCREEN, EMIR Lab Routine Systemic lupus erythematosus ([facility]) 06/04/2024 10:29 AM EDT PROTEIN/ CREATININE RATIO, URINE Lab Routine Systemic lupus erythematosus, unspecified SLE type, unspecified organ involvement status ([facility]) 06/04/2024 10:39 AM EDT TOXICOLOGY, URINESCREEN W/ CONFIRMATION Lab Routine Systemic lupus erythematosus ([facility]) 06/04/2024 10:39 AM EDT Health Maintenance Due Date Last Done Comments Cologuard 2018 Fecal Occult Blood Test 2018 Sigmoidoscopy 2018 COVID-19 Vaccine ( season) 2023 02/09/2021, 01/07/2021, 01/07/2021 Hepatitis B Vaccine (2 of 3 - 19+ 3-dose series) 04/13/2024 03/16/2024 Zoster Vaccines (2 of 2) 05/11/2024 03/16/2024 Mammogram 06/21/2024 06/21/2023, 03/0 11/2020, 02/13/2020, Additional history exists Influenza Vaccine (FLU shot) (#1) 2024 GFR 05/14/2025 05/14/2024, 03/07, 02/23/2024, Additional history exists Depression Monitoring 05/21/2025 05/21/2024 Albumin/Creatinine Ratio 06/25/2026 06/25/2023 Pap Smear 07/15/2026 07/15/2023, 08/28/2019 Diabetes Screening 05/14/2027 05/14/2024, 0 03/16/2024, 02/23/2024, Additional history exists Colonoscopy 12/09/2027 12/09/2022, 12/09/2022 Colorectal Cancer Screening 12/09/2027 Lipid Panel 06/25/2028 06/25/2023, 07/09, 01/09/2019 Cervical Cancer Screening 07/15/2028 HPV/Co-Test 07/15/2028 07/15/2023 DTaP,Tdap,and Td Vaccines (2 - Td or Tdap) 05/01/2030 05/01/2020, 06/17/1999 Pneumococcal Vaccine: Pediatrics (0 to 5 Years) and At-Risk Patients (6 to 64 Years) Completed 05/02/2023 HPV (Gardasil) Vaccine Aged Out No lo nger eligible based on patient's age to complete this topic MENINGOCOCCAL (MENACTRA/MENVEO) Aged Out No longer eligible based on patient's age to complete this topic documented as of this encounter Medical Devices Not on filedocumented as of this encounter Visit Diagnoses Diagnosis MGUS (monoclonal gammopathy of unknown significance) Monoclonal paraproteinemia Systemic lupus erythematosus, unspecified SLE type, unspecified organ involvement status (HCC) Hyponatremia Hyposmolality and/or hyponatremia documented in this encounter Care Teams Door And Arrival Attendant Relationship Specialty Start Date End Date Sharer, Mary Raymond MD [address] [place] [address] PCP - General Family Medicine 02/16/24 documented as of this encounter
--- OUTSIDE RECORDS SUMMARY | 2024-06-07 14:36 | External Medical Summary ---
Author Name Unknown Address Unknown Organization [id number]:LABORATORY [facility] - [facility] [address] [facility] [address] Laboratory Report Ordering Provider Test Date Status ANDREE HUICABRERA 06/04/2024 10:29:56 Final Observation Date Value Abnormality Reference (Units) Status PARAPROTEIN NORMAL/ABNORMAL 06/04/2024 10:29:56 Normal Normal Final Protein 06/04/2024 10:29:56 6.5 6.0-8.3 (g/dL) Final Albumin/Protein.total [Pure mass fraction] in Serum or Plasma by Electrophoresis 06/04/2024 10:29:56 3.75 3.30-4.40 (g/dL) Final Alpha 1 globulin/Protein.tota l [Pure mass fraction] in Serum or Plasma by Electrophoresis 06/04/2024 10:29:56 0.17 0.10-0.30 (g/dL) Final Alpha 2 globulin/Protein.tota l [Pure mass fraction] in Serum or Plasma by Electrophoresis 06/04/2024 10:29:56 0.89 0.60-1.00 (g/dL) Final Beta globulin/Protein.tota l [Pure mass fraction] in Serum or Plasma by Electrophoresis 06/04/2024 10:29:56 0.97 0.80-1.30 (g/dL) Final Gamma globulin/Protein.tota l [Pure mass fraction] in Serum or Plasma by Electrophoresis 06/04/2024 10:29:56 0.73 0.70-1.70 (g/dL) Final Protein Fractions [Interpretation] in Serum or Plasma by Electrophoresis Narrative 06/04/2024 10:29:56 Normal serum protein electrophoretic pattern. Final Performing Location [facility]ORY [facility] - [address] [facility] [address]
--- OUTSIDE RECORDS SUMMARY | 2024-06-07 14:36 | External Medical Summary ---
Author Name Unknown Address Unknown Organization [id number]:[facility] [place] [address] [place] [address] Laboratory Report Ordering Provider Test Date Status NANCY LUCERO 06/04/2024 10:29:56 Final Observation Date Value Abnormality Reference (Units ) Status DNA double strand Ab [Presence] in Serum 06/04/2024 10:29:56 Negative Negative Final DNA double strand Ab [Titer] in Serum by Immunofluorescence (IF) Viry payton 06/04/2024 10:29:56 <1:10 <1:10 (Titer) Final Performing Location [facility] [place] [address] [place] [address]
--- OUTSIDE RECORDS SUMMARY | 2024-06-07 14:36 | External Medical Summary ---
Author Name Unknown Address Unknown Organization [id number]:[facility] [place] - [address] [facility] [place] [address] Laboratory Report Ordering Provider Test Date Status NANCY LUCERO 06/04/2024 10:29:56 Final Observation Date Value Abnormality Reference (Units ) Status Complement C3c [Mass/volume] in Serum or Plasma 06/04/2024 10:29:56 127 90-180 (mg/dL) Final Performing Location LABORATORY [facility] - [address] [place] [address]
--- OUTSIDE RECORDS SUMMARY | 2024-06-07 14:36 | External Medical Summary ---
Author Name Unknown Address Unknown Organization [id number]:[facility]ATORY [facility] - [address] [place] [address] Laboratory Report Ordering Provider Test Date Status NANCY LUCERO 06/04/2024 10:29:56 Final Observation Date Value Abnormality Reference (Units ) Status C4 06/04/2024 10:29:56 21 10-40 (mg/ dL) Final Performing Location [facility]ATORY [facility] - [address] [place] [address]
--- OUTSIDE RECORDS SUMMARY | 2024-06-07 14:36 | External Medical Summary ---
Author Name Unknown Address Unknown Organization [id number]:[facility] [place] [facility] [address] [place] [address] Laboratory Report Ordering Provider Test Date Status JAZMINENANCY 06/04/2024 10:39:13 Final Cutoff Concentrations:
Drug Level
Amphetamines 500 ng/mL
Benzodiazepines 100 ng/mL
Cannabinoids 50 ng/mL
Cocaine Metabolite 150 ng/mL
Fentanyl 1 ng/mL
Hydrocodone / Hydromorphone 300 ng/mL
Methadone Metabolite 100 ng/mL
Morphine / Codeine 300 ng/mL
Oxycodone / Oxymorphone 100 ng/mL

Screening results are presumptive and can only be used for medical purposes. Positive screening results are reflexed to confirmatory testing. Observation Date Value Abnormality Reference (Units ) Status Amphetamines, Urine screen 06/04/2024 10:39:13 Negative Negative Final Benzodiazepines, Urine screen 06/04/2024 10:39:13 Negative Negative Final Cannabinoids, Urine screen 06/04/2024 10:39:13 Negative Negative Final Cocaine Metabolite, Urine screen 06/04/2024 10:39:13 Negative Negative Final fentaNYL [Presence] in Urine by Screen method 06/04/2024 10:39:13 Negative Negative Final HYDROcodone [Presence] in Urine by Screen method 06/04/2024 10:39:13 Negative Negative Final 1-Fklbtqagnp-7,5-Dimeth yl-3,3-Diphenylpyrrolid ine (EDDP) [Presence] in Urine 06/04/2024 10:39:13 Positive Abnormal Negative Final Opiates, Urine screen 06/04/2024 10:39:13 Negative Negative Final oxyCODONE [Presence] in Urine by Screen method 06/04/2024 10:39:13 Negative Negative Final Performing Location [facility] [place] [address] [facility] [address]
--- OUTSIDE RECORDS SUMMARY | 2024-06-07 14:36 | External Medical Summary ---
Author Name Unknown Address Unknown Organization K01:[facility] [place] [facility] [address] [place] [address] Laboratory Report Ordering Provider Test Date Status NANCY LUCERO 06/04/2024 10:29:00 Final Observation Date Value Abnormality Reference (Units ) Status SSA Ab 06/04/2024 10:29:00 Positive Abnormal Negative Final Sjogrens syndrome-A extractable nuclear Ab [Units/volume] in Serum by Immunoassay 06/04/2024 10:29:00 76.0 <7 (U/mL) Final SSB Ab 06/04/2024 10:29:00 Negative Negative Final Sjogrens syndrome-B extractable nuclear Ab [Units/volume] in Serum by Immunoassay 06/04/2024 10:29:00 <0.4 <7 (U/mL) Final Performing Location [facility] [place] [facility] [address] [place] [address]
--- OUTSIDE RECORDS SUMMARY | 2024-06-07 14:36 | External Medical Summary ---
Author Name Unknown Address Unknown Organization [id number]:[facility]ORY [facility] [place] - [address] [facility] [address] Laboratory Report Ordering Provider Test Date Status NANCY LUCERO 06/04/2024 10:29:00 Final Observation Date Value Abnormality Reference (Units ) Status Centromere Ab [Presence] in Serum 06/04/2024 10:29:00 Negative Negative Final Centromere Ab [Units/volume] in Serum 06/04/2024 10:29:00 <0.4 <7 (U/mL) Final Performing Location LAB[facility]ORY [facility] [place] - [address] [place] [address]
--- OUTSIDE RECORDS SUMMARY | 2024-06-07 14:36 | External Medical Summary | Summary of Care ---
Author Name Unknown Organization [facility] Address [address] [address] Phone [phone] Care Team Providers Care Jewelry Estimator Name Role Phone Sharer, Mary Raymond MD Primary Care Provider [phone] Encounter Details Date Type Department Care Team (Late st Contact Info) Description 05/28/2024 Orders Only [facility], [facility] [address] [place] [address] Sharer, Mary Raymond MD [address] [place] [address] Allergies Active Allergy Reactions Criticality Noted Date Comments Cefuroxime 05/02/2023 Bupropion 05/02/2023 documented as of this encounter (statuses as of 05/28/2024) Medications Medication Sig Dispensed Refills Start Date [...] suspected opioid overdose. Seek immediate medical attention. [email or web address] 1 Each 3 01/04/2024 Active methylPREDNISolone 4 [...] at bedtime. 90 Tablet 3 02/07/2024 Active Nadolol 20 MG Oral Tablet (Corgard) Take 1 Tablet by mouth in the morning. 30 Tablet 3 02/13/2024 Active Mometasone Furoate 0.1 % External CreamIndications:Syst [...] DAILY NEEDED 90 Tablet 2 05/24/2024 Active documented as of this encounter (statuses as of 05/28/2024) Active Problems Problem Noted Date Diagnosed Date [...] finding 07/15/2023 Post covid-19 condition, unspecified 06/27/2023 senior care current use of systemic steroids 06/27 Food insecurity 06/15/2021 Overview: Per [facility] Protocol History of 2018 novel coronavirus [...] as of this encounter (statuses as of 05/28/2024) Resolved Problems Problem Noted Date Diagnosed Date [...] as of this encounter (statuses as of 05/28/2024) Immunizations Name Administration Dates Next Due COVID-19 mRNA, LNP-s, No Pre serve, 2-Dose Series (Moderna) 02/09/2021,01/07/2021,01/07/2021 Hepatitis B, 20+ yrs 03/16/2024 Pneumococcal Conjugate Vacci ne, 20-valent ([id number]) 05/02/2023 TDAP (age 10 and older)(Boostrix) 05/01/2020 [...] Description 06/21/2024 11:30 AM EDT Appointment Radiology, [facility] [address] [place] [address] 07/06/2024 2:15 PM EDT Office Visit Gynecology Urology, [place] [address] [place] [address] Shania Klein MD [address] [place], [place] [phone] Nurse [place] [employer] [facility] [address] [place] [address] 08/22/2024 11:30 AM EDT Telemedicine Psychiatry [place] [address] [place] [phone] Mal Gonzalez DO [address] [facility] [place] [id number] 08/27/2024 11:20 AM EDT [facility] [address] [place] [address] Dr 1st Floor [place] [phone] Emily Merino MD [address] [place] [address] [place] [phone] 09/10/2024 8:20 AM EST Office Visit Family Practice, [facility] [address] [place] [address] SharerMary MD [address] [place] [address] 12/04/2024 11:00 AM EST Office Visit Rheumatology, [place] [facility] [address] 1[address] Floor [place] [phone] Emily Merino MD [address] [place] [address] [place] [address] Health Maintenance Due Date Last Done Comments [...] Not on filedocumented as of this encounter Procedures Procedure Name Priority Date/Time Associated Diagnosis Comments CHEMISTRY-OUTSIDE Routine 05/14/2024 documented in this encounter Results * CHEMISTRY-OUTSIDE (05/14/2024) Not all results display below - see scan for full detail OUTSIDE LAB (SEE SCANNED REPORT) Comment:SEE SCAN, CBC/DIFF, PLT, PT INR, BMP CREATININE-OUTSID E LAB 0.72 0.6 - 1.2 MG/DL OUTSIDE LAB (SEE SCANNED REPORT) EGFR-OUTSIDE LAB 112.4 ML/MIN OUT SIDE LAB (SEE SCANNED REPORT) POTASSIUM-OUTSIDE LAB 4.6 3.5 - 5.1 MMOL/L OUTSIDE LAB (SEE SCANNED REPORT) GLUCOSE-OUTSIDE LAB 93 70 - 99 MG/DL OUTSIDE LAB (SEE SCANNED REPORT) HOURS FASTING OUTSID E LAB (SEE SCANNED REPORT) TRIGLYCERIDES-OUT SIDE LAB OUTSIDE LAB (SEE SCANNED REPORT) CHOLESTEROL-OUTSI DE LAB OUTSIDE LAB (SEE SCANNED REPORT) HDL-OUTSIDE LAB OUTS ANGE LAB (SEE SCANNED REPORT) CHOL/HDL RATIO-OUTSIDE LAB OUTSIDE LA B (SEE SCANNED REPORT) LDL (CALCULATED)-OUTS ANGE LAB OUTSIDE LAB (SEE SCANNED REPORT) LDL (DIRECT MEASURE)-OUTSIDE LAB OUTSIDE LAB (SEE SCANNED REPORT) HEMOGLOBIN, [id number] LAB OUTSIDE LAB (SEE SCANNED REPORT) PHOSPHORUS-OUTSID E LAB OUTSIDE LAB (SEE SCANNED REPORT) PTH-OUTSIDE LAB OUTS ANGE LAB (SEE SCANNED REPORT) MICROALBUMIN RATIO-OUTSIDE LAB OUTSIDE LA B (SEE SCANNED REPORT) PROTEIN, UA-OUTSIDE LAB OUTSIDE LAB (SEE SCANNED REPORT) HGB OUTSIDE LA B (SEE SCANNED REPORT) 05/14/2024 Liz Michael PA-C LABORATORY OUTSIDE LAB (SEE SCANNED REPORT) documented in this encounter Care Teams Jewelry Estimator Relationship Specialty Start Date End Date Sharer, Mary Raymond MD [address] [place] [address] PCP - General Family Medicine 02/16/24 documented as of this encounter
--- OUTSIDE RECORDS SUMMARY | 2024-06-07 14:36 | External Medical Summary | Summary of Care ---
Author Name Unknown Organization [facility] Address [address] [place] [address] Phone [phone] Care Team Providers Care Marketing Services Rep Name Role Phone Sharer, Mary Raymond MD Primary Care Provider [phone] Reason for Visit * Reason Onset Date Comments Medication Refill 05/29/2024 Encounter Details Date Type Department Care Team (Late st Contact Info) Description 05/29/2024 Refill Cardiology [facility] [address] [place] [address] Sd Dalal CRNP [address] [place] [id number] Allergies Active Allergy Reactions Criticality Noted Date Comments Cefuroxime 05/02/2023 Bupropion 05/02/2023 documented as of this encounter (statuses as of 05/29/2024) Medications Medication Sig Dispensed Refills Start Date End Date Status Blood Pressure KITIndications:Esse ntial hypertension with goal blood pressure less than 140/90 Check your blood pressure daily. 1 Kit 0 Active Ferrous Sulfate 325 (65 Fe) MG Oral Tablet (Feosol)Indications :Low ferritin Take 1 Tab by mouth 2 times a day with morning and evening meals. 60 Tab 3 1 Active Movantik 25 MG Oral Tablet (Naloxegol Oxalate) Take 1 Tablet by mouth. Active Methadone 50 mg/ml oral soln ([facility]) Take 103 mg by mouth daily Active Fluticasone Propionate 50 MCG/ACT Nasal Suspension (Flonase)Indication s:Post-nasal drip Administer 2 Sprays into each nostril in the morning. 18.2 mL 11 3 Active Pramipexole Dihydrochloride 0.25 MG Oral Tablet (Mirapex)Indication s:Restless legs syndrome TAKE 2 OR 3 TABLETS BY MOUTH NIGHTLY 1 HOUR BEFORE BEDTIME 180 Tablet 5 4 Active Omeprazole 40 MG Oral Capsule Delayed Release (PriLOSEC)Indicatio ns:Gastro-esophagea l reflux disease without esophagitis Take 1 Capsule by mouth in the morning. 90 Capsule 3 4 Active Naloxone HCl 4 MG/0.1ML Nasal Liquid (Narcan Nasal)Indications:H igh risk medication use Administer 0.1 mL into nostril as needed (sedation, respiratory suppresion). Administer 1 spray into 1 nostril for suspected opioid overdose. Seek immediate medical attention. [email or web address] 1 Each 3 4 Active methylPREDNISolone 4 MG Oral Tablet (Medrol) Take 1 Tablet by mouth in the morning. 4 Active Transderm-Scop 1 MG/3DAYS Transdermal Patch 72 HourIndications:Jonathon pettit Place 1 Patch over 72 hours topically on the skin every 3 days. 4 hours before event. May replace every 3 days. . 24 Patch 1 4 Active Pilocarpine HCl 7.5 MG Oral Tablet TAKE 1 TABLET BY MOUTH THREE TIMES DAILY 90 Tablet 11 4 Active Amitriptyline HCl 150 MG Oral Tablet (Elavil) Take 1 Tablet by mouth at bedtime. 90 Tablet 3 4 Active Mometasone Furoate 0.1 % External CreamIndications:Sy stemic lupus erythematosus, unspecified SLE type, unspecified organ involvement status (HCC) Apply topically to affected area daily. Apply to skin 45 g 1 4 Active Chlorhexidine Gluconate 0.12 % Mouth/Throat Solution (Periogard) USE 15ML BY MOUTH TWO TIMES DAILY FOR 7 DAYS DIRECTED Active Mag-G 500 (27 Mg) MG Oral Tablet (Magnesium Gluconate) Take 500 mg by mouth. 3 Active Milk Thistle Seed Powder Use as directed. Active Vitamin C 125 MG Oral Tablet Chewable Take by mouth. Active Zinc 20 MG Oral Capsule Take by mouth. Active Lidocaine 5 % External Patch (Lidoderm)Indicatio ns:Polyneuropathy, unspecified Place 1 Patch over 12 hours topically on the skin daily. 30 Patch 2 4 Active Acyclovir 400 MG Oral Tablet (Zovirax)Indication s:Fibromyalgia TAKE 1 TABLET BY MOUTH TWO TIMES DAILY 60 Tablet 3 4 Active Nicotine 14 MG/24HR Transdermal Patch 24 Hour (Nicoderm CQ) Place 1 Patch over 24 hours topically on the skin daily. 14 Patch 4 Active Mycophenolate Mofetil 250 MG Oral Capsule (Cellcept)Indicatio ns:Systemic lupus erythematosus, unspecified SLE type, unspecified organ involvement status (HCC) Take 2 Capsules by mouth in the morning and 2 Capsules before bedtime 120 Capsule 11 4 Active DULoxetine HCl 60 MG Oral Capsule Delayed Release Particles (Cymbalta)Indicatio ns:Fibromyalgia Take 2 Capsules by mouth in the morning. 180 Capsule 1 4 Active Benlysta 200 MG/ML Subcutaneous Solution Auto-injector (Belimumab)Indicati ons:Systemic lupus erythematosus, unspecified SLE type, unspecified organ involvement status (HCC) Inject 1 mL (1 pen) under the skin once a week. 4 mL 11 4 Active Cyclobenzaprine HCl 10 MG Oral Tablet (Flexeril) TAKE 1 TABLET BY MOUTH THREE TIMES DAILY NEEDED 90 Tablet 2 4 Active Nadolol 20 MG Oral Tablet (Corgard) Take 1 Tablet by mouth in the morning. 30 Tablet 6 4 Active Nadolol 20 MG Oral Tablet (Corgard) Take 1 Tablet by mouth in the morning. 30 Tablet 3 4 05/29/20 24 Discontinued documented as of this encounter (statuses as of 05/29/2024) Active Problems Problem Noted Date Diagnosed Date [...] finding 07/15/2023 Post covid-19 condition, unspecified 06/27/2023 snf current use of systemic steroids 06/27 Food insecurity 06/15/2021 Overview: Per [facility] Protocol History of 2019 novel [...] as of this encounter (statuses as of 05/29/2024) Resolved Problems Problem Noted Date Diagnosed Date [...] as of this encounter (statuses as of 05/29/2024) Immunizations Name Administration Dates Next Due COVID-19 mRNA, LNP-s, No Pre serve, 2-Dose Series (Moderna) 02/09/2021,01/07/2021,01/07/2021 Hepatitis B, 20+ yrs 03/16/2024 Pneumococcal Conjugate Vacci ne, 20-valent ([id number]) 05/02/2023 TDAP (age 10 and older)(Boostrix) 05/01/2020 [...] encounter Miscellaneous Notes * Telephone Encounter - Sd Dalal CRNP - 05/29/2024 4:33 PM EDT Signed Prescriptions: Disp Refills Nadolol 20 MG Oral Tablet (Corgard) 30 Tab*6 Sig: Take 1 Tablet by mouth in the morning. Authorizing Provider: SD DALAL * Telephone Encounter - Larisa Mayfield RN - 05/29/2024 4:04 PM EDT Please review this script and authorize. Pending Prescriptions: Disp Refills Nadolol 20 MG Oral Tablet (Corgard) 30 Tab*6 Sig: Take 1 Tablet by mouth in the morning. 05/16/2024 Visit date not found Last date the medication was ordered: 02/12/2023 Pharmacy: [id number] Patient Phone Numbers Labs: Lab Results Component Value Date/Time CREATININE - [facility] 0.8 02/23/2024 02:22 PM CREATININE - [facility] 0.7 03/16/2024 09:17 AM CREATININE - [facility] 0.7 01/25/2020 12:08 PM CREATININE, RANDOM URINE - [facility] 133 06/25/2023 08:07 AM CREATININE, RANDOM URINE - [facility] 79 01/25/2020 12:07 PM CREATININE, URINE 55.0 02/23/2024 02:22 PM CREATININE-OUTSIDE LAB 0.72 05/14/2024 12:00 AM Lab Results Component Value Date/Time POTASSIUM 4.2 01/31/1997 11:45 AM POTASSIUM - [facility] 3.9 02/23/2024 02:22 PM POTASSIUM - [facility] 4.2 03/16/2024 09:17 AM POTASSIUM - [facility] 3.4 (L) 01/25/2020 12:08 PM POTASSIUM-OUTSIDE LAB 4.6 05/14/2024 12:00 AM Lab Results Component Value Date/Time TSH - [facility] 2.09 06/25/2023 08:07 AM TSH - [facility] 2.07 11/10/2020 12:03 PM TSH - [facility] 3.55 08/03/2019 08:48 AM TSH - OUTSIDE LAB 1.25 01/19/2022 04:40 PM TSH - OUT[facility]IDE LAB 8.19 (A) 05/21/2019 12:00 AM Lab Results Component Value Date/Time LDL (CALCULATED)-OUTSIDE LAB 112 (A) 01/09/2019 12:00 AM LDL CHOLESTEROL (CALCULATED) - [facility] 116 06/25/2023 08:07 AM LDL CHOLESTEROL (CALCULATED) - [facility] 136 (H) 08/03/2019 08:48 AM Lab Results Component Value Date/Time ALT - [facility] 16 02/10/2024 08:48 AM ALT - [facility] 30 09/26/2019 03:13 PM ALT-OUTSIDE LAB 29 01/09/2024 11:59 AM ALT/SGPT - [facility] 12 02/23/2024 02:22 PM No components found for: "[id number]" Labs: Lab Results Component Value Date/Time CREAT 0.72 05/14/2024 12:00 AM CREAT 0.7 01/25/2020 12:08 PM POTASSIUM 4.6 05/14/2024 12:00 AM POTASSIUM 3.4 (L) 01/25/2020 12:08 PM POTASSIUM 4.2 01/31/1997 11:45 AM TSH 2.09 06/25/2023 08:07 AM TSH 1.25 01/19/2022 04:40 PM TSH 2.07 11/10/2020 12:03 PM LDLCALC 116 06/25/2023 08:07 AM LDLCALC 136 (H) 08/03/2019 08:48 AM ALT 12 02/23/2024 02:22 PM ALT 16 02/10/2024 08:48 AM ALT 29 01/09/2024 11:59 AM ALT 30 09/26/2019 03:13 PM HGBA1C 5.5 02/10/2024 08:48 AM HGBA1C 5.1 04/06/2022 10:33 AM HGBA1C 5.2 08/03/2019 08:48 AM documented in this encounter Plan of Treatment Upcoming Encounters Date Type Department Care Team (Late st Contact Info) Description 06/21/2024 11:30 AM EDT Appointment Radiology, [facility] [address] [place] [address] 07/06/2024 2:15 PM EDT Office Visit Gynecology [place], [place] [address] [place] [address] Shania Klein MD [address] [place] [address] Nurse Eden Billing Analyst [facility] [address] [place] [address] 08/22/2024 11:30 AM EDT Telemedicine Psychiatry [place] [address] [place] [phone] Mal Gonzalez DO [address] [facility] [place] [address] 08/27/2024 11:20 AM EDT Office Visit Rheumatology, [address] Floor [place] [phone] Emily Merino MD [address] [place] [address] [place] [phone] 09/10/2024 8:20 AM EST Office Visit [facility], [facility] [address] [facility] [address] SharerMary MD [address] [place] [address] 12/04/2024 11:00 AM EST Office Visit [facility]ology[facility] [address] [place] [phone] Emily Merino MD [address] [place] [address] [place] [phone] Health Maintenance Due Date Last Done Comments Cologuard 2018 Fecal Occult Blood Test 2018 Sigmoidoscopy 2018 COVID-19 Vaccine ( season) 2023 02/09/2021, 01/07/2021, 01/07/2021 Hepatitis B Vaccine (2 of 3 - 19+ 3-dose series) 04/13/2024 03/16/2024 Zoster Vaccines (2 of 2) 05/11/2024 03/16/2024 Mammogram 06/21/2024 06/21/2023, 03/0 11/2020, 02/13/2020, Additional history exists Influenza Vaccine (FLU shot) (#1) 2024 GFR 05/14/2025 05/14/2024, 05/, 02/23/2024, Additional history exists Depression Monitoring 05/21/2025 [...] filedocumented as of this encounter Care Teams Marketing Services Rep Relationship Specialty Start Date End Date Sharer, Mary Raymond MD [address] [place] [phone] PCP - General Family Medicine 02/16/24 documented as of this encounter
--- OUTSIDE RECORDS SUMMARY | 2024-06-07 14:36 | External Medical Summary ---
Author Name Unknown Address Unknown Organization [id number]:[place] [place] [address] [facility] [place] [address] Laboratory Report Ordering Provider Test Date Status JAZMINENANCY 06/04/2024 10:29:56 Final Observation Date Value Abnormality Reference (Units ) Status BUN 06/04/2024 10:29:56 8 6-20 (mg/dL) Final Creatinine 06/04/2024 10:29:56 0.7 0.5-1.0 (mg/dL) Final Glomerular filtration rate/1.73 sq M.predicted [Volume Rate/Area] in Serum, Plasma or Blood by Creatinine-based formula (CKD-EPI) 06/04/2024 10:29:56 >90 >=60 (mL/min) Final eGFR is calculated based on the CKD-EPI 2020 equation. Sodium 06/04/2024 10:29:56 132 Below low normal 135 -146 (mmol/L) Final Potassium 06/04/2024 10:29:56 4.5 3.5-5.1 (m mol/L) Final Cl 06/04/2024 10:29:56 93 Below low normal 98- 107 (mmol/L) Final CO2 06/04/2024 10:29:56 25 22-32 (mmo l/L) Final Anion gap 06/04/2024 10:29:56 14 7-15 (mmol /L) Final Glucose 06/04/2024 10:29:56 109 70-120 (mg /dL) Final Albumin 06/04/2024 10:29:56 4.4 3.8-5.0 (g /dL) Final AST (Aspartate aminotransferase) 06/04/2024 10:29:56 12 10-35 (U/L) Fin al Alk Phos 06/04/2024 10:29:56 80 35-130 (U/ L) Final Bilirubin, Total 06/04/2024 10:29:56 0.2 <=1 .2 (mg/dL) Final Calcium 06/04/2024 10:29:56 9.6 8.4-10.2 ( mg/dL) Final Protein 06/04/2024 10:29:56 6.5 6.0-8.3 (g /dL) Final ALT (Alanine aminotransferase) 06/04/2024 10:29:56 11 10-35 (U/L) Humberto stevens Performing Location [facility] [place] [facility] [place] [address] [facility] [address]
--- OUTSIDE RECORDS SUMMARY | 2024-06-07 14:36 | External Medical Summary ---
Author Name Unknown Address Unknown Organization [id number]:LABORATORY [facility] [place] - [address] [place] [address] Laboratory Report Ordering Provider Test Date Status DANITZA HUI 06/04/2024 10:29:56 Final Observation Date Value Abnormality Reference (Units) Status PARAPROTEIN NORMAL/ABNORMAL 06/04/2024 10:29:56 Normal Normal Final Immunofixation for Serum or Plasma 06/04/2024 10:29:56 No monoclonal gammopathy detected. Final Performing Location LABORATORY [facility] [place] - [address] [place] [address]
--- OUTSIDE RECORDS SUMMARY | 2024-06-07 14:36 | External Medical Summary ---
Author Name Unknown Address Unknown Organization [id number]:LABORATORY [facility] [place] - [address] [place] [address] Laboratory Report Ordering Provider Test Date Status JAZMINENANCY 06/04/2024 10:39:13 Final Normal: <150 mg/ g creatinine
High: 150-500 mg/g creatinine
Very High: >500 mg/g creatinine
Nephrotic: >3000 mg/g creatinine Observation Date Value Abnormality Reference (Units) Status Protein, Urine 06/04/2024 10:39:13 <4 (mg/dL) Final Creatinine, Urine 06/04/2024 10:39:13 19 (mg/dL) Final PROTEIN/CREATININE RATIO, HIDE 06/04/2024 10:39:13 Uninterpretable Protein/Creatinine ratio due to very low protein and creatinine values. (mg/g) Final Performing Location LABORATORY [facility] [place] - [address] [place] [address]
--- OUTSIDE RECORDS SUMMARY | 2024-06-07 14:36 | External Medical Summary ---
Author Name Unknown Address Unknown Organization [id number]:LABORATORY [place] [address] [facility] [address] [place] [address] Laboratory Report Ordering Provider Test Date Status NANCY LUCERO 06/04/2024 10:29:00 Final Observation Date Value Abnormality Reference (Units ) Status Ribonucleoprotein extractable nuclear Ab [Presence] in Serum by Immunoassay 06/04/2024 10:29:00 Negative Negative Final Ribonucleoprotein extractable nuclear IgG Ab [Units/volume] in Serum by Immunoassay 06/04/2024 10:29:00 0.5 <5 (U/mL) Final Avery IgG 06/04/2024 10:29:00 Negative Negative Final Avery extractable nuclear Ab [Units/volume] in Serum by Immunoassay 06/04/2024 10:29:00 0.8 <7 (U/mL) Final Performing Location LABORATORY [facility] [place] - [facility] [place] [address]
--- OUTSIDE RECORDS SUMMARY | 2024-06-07 14:36 | External Medical Summary ---
Author Name Unknown Address Unknown Organization [id number]:LABORATORY [facility] - [address] [facility] [place] [address] Laboratory Report Ordering Provider Test Date Status NANCY LUCERO 06/04/2024 10:29:56 Final Observation Date Value Abnormality Reference (Units ) Status SYNC LEUKOCYTES IN BLOOD BY AUTOMATED COUNT 06/04/2024 10:29:56 12.54 Above high normal 4.00-10.80 (K/uL) Final Segs 06/04/2024 10:29:56 85.5 Above high normal 40.0-75.0 (%) Final Lymphs % 06/04/2024 10:29:56 7.4 Below low normal 18.0-42.0 (%) Final Monos 06/04/2024 10:29:56 4.0 1.0-11.0 (%) Final Eosinophils 06/04/2024 10:29:56 1.9 0.0-6.0 (%) Final Basos 06/04/2024 10:29:56 0.8 0.0-2.0 (%) Final Immature Granulocyte, Percent 06/04/2024 10:29:56 0.4 0.0-2.0 (%) Final Absolute Segs 06/04/2024 10:29:56 10.72 Above high normal 1.80-7.70 (K/uL) Final Lymphs, absolute 06/04/2024 10:29:56 0.93 Below low normal 1.00-4.80 (K/ul) Final Monos, Abs 06/04/2024 10:29:56 0.50 0.00-1.10 (K/uL) Final Eos, Abs 06/04/2024 10:29:56 0.24 0.00-0.70 (K/uL) Final Basos, Abs 06/04/2024 10:29:56 0.10 0.00-0.20 (K/uL) Final Immature Granulocytes, Number 06/04/2024 10:29:56 0.05 0.00-0.20 (K/uL) Final Performing Location [place] [facility] [place] [facility] [place] [address]
--- OUTSIDE RECORDS SUMMARY | 2024-06-07 14:36 | External Medical Summary ---
Author Name Unknown Address Unknown Organization K01:LABORATORY [address] [facility] [address] Laboratory Report Ordering Provider Test Date Status NANCY LUCERO 06/04/2024 10:29:00 Final Observation Date Value Abnormality Reference (Units ) Status Nuclear IgG Ab [Ratio] in Serum by Immunoassay 06/04/2024 10:29:00 Positive Abnormal Negative Final DNA double strand Ab [Presence] in Serum 06/04/2024 10:29:00 Negative Negative Final DOUBLE STRANDED DNA VALUE - [facility] 06/04/2024 10:29:00 3.6 <20 (IU/mL) Final Extractable nuclear Ab [Presence] in Serum 06/04/2024 10:29:00 Positive Abnormal Negative Final Nuclear IgG Ab [Ratio] in Serum by Immunoassay 06/04/2024 10:29:00 9.7 <0.7 (Ratio) Final Screening is based on detect ion of the following antibodies: dsDNA, U1-SALVAGE MEND WORKER (RNP70, A, C), SS-A/Ro, SS-B / La, Soila-1, Scl-70, Centromere B proteins and Sm proteins. In conjunction with clinical findings, this can aid in the diagnosis of systemic lupus erythematosous (SLE), mixed connective tissue disease (MCTD), Sjogren's syndrome, scleroderma and polymyositis/dermatomyositis.
However, a negative result does not rule out systemic rheumatic or other autoimmune disease. If clinically suspected, further evaluation and testing may be necessary. Please consult with Rheumatology Department.
Methodology: Fluorescent Enzyme Immunoassay. Performing Location LABORATORY [address] [facility] [address]
--- OUTSIDE RECORDS SUMMARY | 2024-06-07 14:36 | External Medical Summary ---
Author Name Unknown Address Unknown Organization [id number]:LABORATORY [facility] [place] - [address] [place] [address] [place] [address] Laboratory Report Ordering Provider Test Date Status NANCY LUCERO 06/04/2024 10:29:00 Final Observation Date Value Abnormality Reference (Units ) Status SCL-70 extractable nuclear IgG Ab [Presence] in Serum by Immunoassay 06/04/2024 10:29:00 Negative Negative Final SCL-70 extractable nuclear IgG Ab [Units/volume] in Serum by Immunoassay 06/04/2024 10:29:00 <0.6 <7 (U/mL) Final Performing Location LABORATORY [facility] [place] - [address] [facility] [address]
--- OUTSIDE RECORDS SUMMARY | 2024-06-07 14:36 | External Medical Summary ---
Author Name Unknown Address Unknown Organization K01:[facility]ATORY [facility] [place] [facility] [address] Laboratory Report Ordering Provider Test Date Status JAZMINENANCY 06/04/2024 10:29:56 Final Observation Date Value Abnormality Reference (Units ) Status WBC, Total 06/04/2024 10:29:56 12.54 Above high normal 4.00-10.80 (K/uL) Final RBC 06/04/2024 10:29:56 4.54 3.85-5.15 (M/uL) Final Hemoglobin 06/04/2024 10:29:56 13.5 12.0-15.3 (g/dL) Final HCT 06/04/2024 10:29:56 40.6 36.0-45.2 (%) Final MCV 06/04/2024 10:29:56 89.4 81.5-97.5 (fL) Final MCH 06/04/2024 10:29:56 29.7 27.0-34.0 (pg) Final MCHC 06/04/2024 10:29:56 33.3 32.0-36.0 (g/dL) Final RDW 06/04/2024 10:29:56 14.1 11.5-15.5 (%) Final Platelets 06/04/2024 10:29:56 531 Above high normal 140-400 (K/uL) Final MPV 06/04/2024 10:29:56 8.4 6.6-11.1 (fL) Final Nucleated erythrocytes/100 leukocytes [Ratio] in Blood by Automated count 06/04/2024 10:29:56 0 <=0 (/100 WBCs) Final Performing Location LABORATORY [facility] [place] - [address] [place] [address]
--- OUTSIDE RECORDS SUMMARY | 2024-06-07 14:36 | External Medical Summary ---
Author Name Unknown Address Unknown Organization [id number]:[facility]ORY [facility] [place] - [facility] [address] [facility] [place] [address] Laboratory Report Ordering Provider Test Date Status NANCY LUCERO 06/04/2024 10:29:00 Final Observation Date Value Abnormality Reference (Units ) Status Shahla-1 extractable nuclear Ab [Presence] in Serum by Immunoassay 06/04/2024 10:29:00 Negative Negative Final result 06/04/2024 10:29:00 <0.3 <7 (U/mL) Final Performing Location LABORATORY [facility] [place] - [facility] [address] [place] [address]
--- OUTSIDE RECORDS SUMMARY | 2024-06-07 14:37 | External Medical Summary | Summary of Care ---
Author Name Unknown Organization [facility] Address 1 [facility] [place] [address] Care Team Providers Care Cement Mason Apprentice Name Role Phone Sharer, Mary Raymond MD Primary Care Provider [phone] Reason for Visit * Reason Onset Date Comments Medication Pre-auth 05/09/2024 Benlysta 200 MG/ML Encounter Details Date Type Department Care Team (Late st Contact Info) Description 05/09/2024 Telephone RheumatologyNawaf [facility] [address] 1st Floor [place] [phone] MucEmily ochoa MD [address] [facility] [place] [address] Medication Pre-auth (Benlysta 200 MG/ML ) Allergies Active Allergy Reactions Criticality Noted Date Comments Cefuroxime 05/02/2023 Bupropion 05/02/2023 documented as of this encounter (statuses as of 05/22/2024) Medications Medication Sig Dispensed Refills Start Date End Date Status Blood Pressure KITIndications:Essen tial hypertension with goal blood pressure less than 140/90 Check your blood pressure daily. 1 Kit 0 Active Ferrous Sulfate 325 (65 Fe) MG Oral Tablet (Feosol)Indications: Low ferritin Take 1 Tab by mouth 2 times a day with morning and evening meals. 60 Tab 3 1 Active Movantik 25 MG Oral Tablet (Naloxegol Oxalate) Take 1 Tablet by mouth. Active Methadone 50 mg/ml oral soln (ECH) Take 103 mg by mouth daily Active Fluticasone Propionate 50 MCG/ACT Nasal Suspension (Flonase)Indications :Post-nasal drip Administer 2 Sprays into each nostril in the morning. 18.2 mL 11 3 Active Pramipexole Dihydrochloride 0.25 MG Oral Tablet (Mirapex)Indications :Restless legs syndrome TAKE 2 OR 3 TABLETS BY MOUTH NIGHTLY 1 HOUR BEFORE BEDTIME 180 Tablet 5 4 Active Omeprazole 40 MG Oral Capsule Delayed Release (PriLOSEC)Indication s:Gastro-esophageal reflux disease without esophagitis Take 1 Capsule by mouth in the morning. 90 Capsule 3 4 Active Naloxone HCl 4 MG/0.1ML Nasal Liquid (Narcan Nasal)Indications:Hi gh risk medication use Administer 0.1 mL into nostril as needed (sedation, respiratory suppresion). Administer 1 spray into 1 nostril for suspected opioid overdose. Seek immediate medical attention. [email or web address] 1 Each 3 4 Active methylPREDNISolone 4 MG Oral Tablet (Medrol) Take 1 Tablet by mouth in the morning. 4 Active Transderm-Scop 1 MG/3DAYS Transdermal Patch 72 HourIndications:Shazia mauricio Place 1 Patch over 72 hours topically [...] at bedtime. 90 Tablet 3 4 Active Nadolol 20 MG Oral Tablet (Corgard) Take 1 Tablet by mouth in the morning. 30 Tablet 3 4 Active Mometasone Furoate 0.1 % External CreamIndications:Sys temic lupus erythematosus, unspecified SLE type, unspecified organ involvement status (HCC) Apply topically to affected area daily. Apply to skin 45 g 1 4 Active Chlorhexidine Gluconate 0.12 % Mouth/Throat Solution (Periogard) USE 15ML BY MOUTH TWO TIMES DAILY FOR 7 DAYS DIRECTED Active Mag-G 500 (27 Mg) MG Oral Tablet (Magnesium Gluconate) Take 500 mg by mouth. 3 Active Cyclobenzaprine HCl 10 MG Oral Tablet (Flexeril) TAKE 1 TABLET BY MOUTH THREE TIMES DAILY NEEDED 90 Tablet 2 4 Active Milk Thistle Seed Powder Use as directed. Active Vitamin C 125 MG Oral Tablet Chewable Take by mouth. Active Zinc 20 MG Oral Capsule Take by mouth. Active Lidocaine 5 % External Patch (Lidoderm)Indication s:Polyneuropathy, unspecified Place 1 Patch over 12 hours topically on the skin daily. 30 Patch 2 4 Active Acyclovir 400 MG Oral Tablet (Zovirax)Indications :Fibromyalgia TAKE 1 TABLET BY MOUTH TWO TIMES DAILY 60 Tablet 3 4 Active Nicotine 14 MG/24HR Transdermal Patch 24 Hour (Nicoderm CQ) Place 1 Patch over 24 hours topically on the skin daily. 14 Patch 4 Active Mycophenolate Mofetil 250 MG Oral Capsule (Cellcept)Indication s:Systemic lupus erythematosus, unspecified SLE type, unspecified organ involvement status (HCC) Take 2 Capsules by mouth in the morning and 2 Capsules before bedtime 120 Capsule 11 4 Active Benlysta 200 MG/ML Subcutaneous Solution Auto-injector (Belimumab)Indicatio ns:Systemic lupus erythematosus, unspecified SLE type, unspecified organ involvement status (HCC) Inject 1 mL under the skin once a week. 4 mL 11 4 Active DULoxetine HCl 60 MG Oral Capsule Delayed Release Particles (Cymbalta)Indication s:Fibromyalgia Take 2 Capsules by mouth in the morning. 180 Capsule 3 4 05/13/20 24 Discontinu ed(Refill) Benlysta 200 MG/ML Subcutaneous Solution Auto-injector (Belimumab)Indicatio ns:Systemic lupus erythematosus, unspecified SLE type, unspecified organ involvement status (HCC) Inject 1 mL (1 pen) under the skin once a week. 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 06/27 Food [...] as of this encounter (statuses as of 05/22/2024) Resolved Problems Problem Noted Date Diagnosed Date [...] as of this encounter (statuses as of 05/22/2024) Immunizations Name Administration Dates Next Due COVID-19 mRNA, LNP-s, No Pre serve, 2-Dose Series (Moderna) 02/09/2021,01/07/2021,01/07/2021 Hepatitis B, 20+ yrs 03/16/2024 Pneumococcal Conjugate Vacci ne, 20-valent ([id number]) 05/02/2023 TD - Tetanus/Diptheria (ADULT) 06/17/1999 TDAP [...] as of this encounter Miscellaneous Notes * Addendum Note - Emily Cruz MD - 05/22/2024 9:05 AM EDTAddended by: EMILY CRUZ on: 05/22/2024 09:05 AM Modules accepted: Orders * Addendum Note - Ana Goode MED ASSIST - 05/17/2024 10:46 AM EDT Addended by: ANA GOODE on: 05/17/2024 10:46 AM Modules accepted: Orders * Telephone Encounter - Ana Goode MED ASSIST - 05/17/2024 10:44 AM EDT Benlysta approved 05/16/24-05/16/25 Approval letter sent to office for scanning, med pended for refill * Telephone Encounter - Ana Goode MED ASSIST - 05/16/2024 3:16 PM EDT I was not able to find any previous auths on file for patient. Submitted new PA through CMM with clinicals * Telephone Encounter - Maxx Mansfield OSA - 05/09/2024 2:11 PM EDT [facility] called in to check the status of prior auth for Benlysta 200 MG/ML . Iscrolled through encounters and did not see where this had been started. Please advise documented in this encounter Plan of Treatment Upcoming Encounters Date Type Department Care Team (Late st Contact Info) Description 06/21/2024 11:30 AM EDT Appointment Radiology, [facility] [address] [place] [address] 07/06/2024 2:15 PM EDT Office Visit Gynecology Urology, [place] [address] [place] [address] Shania [facility] [address] [facility] [address] Nurse [place] Housing Quality Standard Inspector [facility] [address] [facility] [place] [address] 08/22/2024 11:30 AM EDT Telemedicine Psychiatry Bonnie [facility] 9 [place] [phone] Prifti, Nausika, DO [address] [facility] [address] 08/27/2024 11:20 AM EDT Office Visit Rheumatology, [address] 1st Floor [place] [phone] Emily Cruz MD [address] [place] [address] [place] [address] 09/10/2024 8:20 AM EST Office Visit Family Practice, [facility] [address] [place] [address] SharerMary MD [address] [place] [address] 12/04/2024 11:00 AM EST Office Visit Rheumatology, [address] 1st Floor [place] [phone] Emily Cruz MD [address] [place] [address] [place] [address] Health Maintenance Due Date Last Done Comments Cologuard 2018 Fecal Occult Blood Test 2018 Sigmoidoscopy 2018 COVID-19 Vaccine ( season) 2023 02/09/2021, 01/07/2021, 01/07/2021 Hepatitis B Vaccine (2 of 3 - 19+ 3-dose series) 04/13/2024 03/16/2024 Zoster Vaccines (2 of 2) 05/11/2024 03/16/2024 Mammogram 06/21/2024 06/21/2023, 03/0 11/2020, 02/13/2020, Additional history exists Influenza Vaccine (FLU shot) (#1) 2024 GFR 03/16/2025 03/16/2024, 02/05, 02/16/2024, Additional history exists Depression Monitoring 05/21/2025 05/21/2024 Albumin/Creatinine Ratio 06/25/2026 06/25/2023 Pap Smear 07/15/2026 07/15/2023, 08/28/2019 Diabetes Screening 03/16/2027 03/16/2024, 0 02/23/2024, 02/16/2024, Additional history exists Colonoscopy 12/09/2027 12/09/2022, 12/09/2022 [...] as of this encounter Visit Diagnoses Diagnosis Systemic lupus erythematosus, unspecified SLE type, unspecified organ involvement status (HCC) documented in this encounter Care Teams Cement Mason Apprentice Relationship Specialty Start Date End Date Sharer, Mary Raymond MD [address] [place] [address] PCP - General Family Medicine 02/16/24 documented as of this encounter
--- OUTSIDE RECORDS SUMMARY | 2024-06-07 14:37 | External Medical Summary | Summary of Care ---
Author Name Unknown Organization [facility] Address 1 [facility] [place] [address] Care Team Providers Care Production Control Planner Name Role Phone Sharer, Mary Raymond MD Primary Care Provider [phone] Reason for Visit * Reason Comments eRx-Medication Refill Encounter Details Date Type Department Care Team (Late st Contact Info) Description 05/24/2024 [facility] [address] [place] [address] Dr 1st Floor [place] [phone] Emily Merino MD [address] [facility] [place] [address] Allergies Active Allergy Reactions Criticality Noted Date Comments Cefuroxime 05/02/2023 Bupropion 05/02/2023 documented as of this encounter (statuses as of 05/24/2024) Medications Medication Sig Dispensed Refills Start Date [...] suspected opioid overdose. Seek immediate medical attention. [email or web address]? [email or web address] 1 Each 3 4 Active methylPREDNISolone 4 MG Oral Tablet (Medrol) Take 1 Tablet by mouth in the morning. 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 06/27 Food insecurity 06/15/2021 Overview: Per [facility] Protocol History of 2019 novel [...] as of this encounter (statuses as of 05/24/2024) Resolved Problems Problem Noted Date Diagnosed Date [...] as of this encounter (statuses as of 05/24/2024) Immunizations Name Administration Dates Next Due COVID-19 mRNA, LNP-s, No Pre serve, 2-Dose Series (Moderna) 02/09/2021,01/07/2021,01/07/2021 Hepatitis B, 20+ yrs 03/16/2024 Pneumococcal Conjugate Vacci ne, 20-valent ([id number]) 05/02/2023 TDAP (age 10 and older)(Boostrix) 05/01/2020 [...] encounter Miscellaneous Notes * Telephone Encounter - Emily Merino MD - 05/24/2024 10:30 AM EDTSigned Prescriptions: Disp Refills Cyclobenzaprine HCl 10 MG Oral Tablet (Fle*90 Tab*2 Sig: TAKE 1 TABLET BY MOUTH THREE TIMES DAILY NEEDED Authorizing Provider: EMILY MERINO * Telephone Encounter - Sneha Sahu MED [employer] - 05/24/2024 6:46 AM EDT Pending Prescriptions: Disp Refills Cyclobenzaprine HCl 10 MG Oral Tablet [Pha*90 Tab*2 Sig: TAKE 1TABLET BY MOUTH THREE TIMES DAILY NEEDED documented in this encounter Plan of Treatment Upcoming Encounters Date Type Department Care Team (Late st Contact Info) Description 06/21/2024 11:30 AM EDT Appointment Radiology, [facility] [address] [place] [address] 07/06/2024 2:15 PM EDT Office Visit Gynecology Urology, [place] [address] [place] [address] Shania Klein MD [address] [place] [address] [place] Nurse Barker Peeler [facility] [address] [place] [address] 08/22/2024 11:30 AM EDT Telemedicine Psychiatry [facility] [address] [place] [phone] Mal Gonzalez DO [address] [place] [address] 08/27/2024 11:20 AM EDT Office Visit Rheumatology, [place] [address] 1st Floor [place] [phone] Emily Merino MD [address] [place] [address] [place] [address] 09/10/2024 8:20 AM EST Office Visit Family Practice, [facility] [address] [place] [address] SharerMary MD [address] [place] [address] 12/04/2024 11:00 AM EST Office Visit RheumatologyNawaf [address] 1st Floor [place] [phone] Emily Merino MD [address] [place] [address] [place] [id number] Health Maintenance Due Date Last Done Comments Cologuard 2018 Fecal Occult Blood Test 2018 Sigmoidoscopy 2018 COVID-19 Vaccine (2022-24 season) 2023 02/09/2021, 01/07/2021, 01/07/2021 Hepatitis B [...] filedocumented as of this encounter Care Teams Production Control Planner Relationship Specialty Start Date End Date Sharer, Mary Raymond MD [address] [place] [address] PCP - General Family Medicine 02/16/24 documented as of this encounter
--- OUTSIDE RECORDS SUMMARY | 2024-06-07 14:37 | External Medical Summary | Summary of Care ---
Author Name Unknown Organization [facility] Address [address] [facility] [place] [address] Phone [phone] Care Team Providers Care Patcher Helper Name Role Phone Sharer, Mary Raymond MD Primary Care Provider [phone] Reason for Visit * Reason Onset Date Comments Abnormal Test Results 05/14/2024 Lm about E R 05/14/24 x2 Encounter Details Date Type Department Care Team (Late st Contact Info) Description 05/14/2024 Telephone Family Practice, [facility] [address] [place] [address] Sharer, Mary Raymond MD [address] [place] [address] Abnormal Test Results (Lm about ER 05/14/24 x2) Allergies Active Allergy Reactions Criticality Noted Date Comments Cefuroxime 05/02/2023 Bupropion 05/02/2023 documented as of this encounter (statuses as of 05/18/2024) Medications Medication Sig Dispensed Refills Start Date [...] suspected opioid overdose. Seek immediate medical attention. https://www.[email or web address]/watch?v= [email or web address] 1 Each 3 4 Active methylPREDNISolone 4 [...] Take 500 mg by mouth. 3 Active Benlysta 200 MG/ML Subcutaneous Solution Auto-injector [...] Capsule 3 4 05/13/20 24 Discontinu ed(Refill) methylPREDNISolone 4 MG Oral Tablet Therapy Pack (Medrol Dosepack)Indications :Systemic lupus erythematosus, unspecified SLE type, unspecified organ involvement status (HCC) follow package directions 21 Tablet 4 05/16/20 24 Discontinu ed(Medicat ion List Clean Up) documented as of this encounter (statuses as of 05/18/2024) Active Problems Problem Noted Date Diagnosed Date [...] finding 07/15/2023 Post covid-19 condition, unspecified 06/27/2023 halfway current use of systemic steroids 06/27 Food [...] as of this encounter (statuses as of 05/18/2024) Resolved Problems Problem Noted Date Diagnosed Date [...] as of this encounter (statuses as of 05/18/2024) Immunizations Name Administration Dates Next Due COVID-19 mRNA, LNP-s, No Pre serve, 2-Dose Series (Moderna) 02/09/2021,01/07/2021,01/07/2021 Hepatitis B, 20+ yrs 03/16/2024 Pneumococcal Conjugate Vacci ne, 20-valent ([id number]) 05/02/2023 TD - Tetanus/Diptheria (ADULT) 06/17/1999 TDAP [...] Answer Date Recorded PHQ Adult Total Score 1 03/12/2024 Hunger Vital Sign Answer Date Recorded Within [...] 01/19/2024 Does the household have a re lar source of income? (Household - for ages [...] encounter Miscellaneous Notes * Telephone Encounter - Ruma Leyva LPN - 05/18/2024 12:17 PM EDT [employer] message sent with Dr Boykin's message. * Addendum Note - Mary Boykin MD - 05/17/2024 11:10 AM EDTAddended by: MARY BOYKIN on: 05/17/2024 11:10 AM Modules accepted: Orders * Telephone Encounter - Mary Boykin MD - 05/17/2024 11:09 AM EDT Suggest repeat labs/sodium level * Telephone Encounter - Alma Carrasco OSA - 05/17/2024 9:40 AM EDT Please see previous messages - Liz states it doesn't look like the patient went to the ER but she did follow up testing with cardiology. Liz needs Dr. Boykin to comment on low sodium prior to 06/07. Can comment on patients chart they can pull the information. Thank you. * Telephone Encounter - Daphney Ames RN - 05/15/2024 12:41 PM EDT Scheduling left voicemail for patient to return call to schedule appointment. Daphney Ames RN 05/15/2024 12:41 PM * Telephone Encounter - Florentino Capellan CRNP - 05/15/2024 7:47 AM EDT Regarding pre op clearance, she will need to see Cardiology for that given her recent report of hypotension. I have no availability before my departure * Telephone Encounter - Chio Bernard LPN - 05/14/2024 5:58 PM EDT Lm for pt to call office for message about ER second attempt of the night * Telephone Encounter - Chio Bernard LPN - 05/14/2024 4:37 PM EDT Unable to reach pt to relay message about going to the ER will try again shortly * Telephone Encounter - Mary Boykin MD - 05/14/2024 4:21 PM EDT I would recommend ER for hypotension and hyponatremia. * Telephone Encounter - Katelynn Mcwilliams OSA - 05/14/2024 4:05 PM EDT Florentino, Please see message below concerning Candy. Her b/p's are running 70's/50's. She is going to needclearance before her operation on Jun 07. She had presyncopal event last week but is also only eating one meal a day due to GI Issues. Thank you, JOSETTE Berumen * Telephone Encounter - Magnolia Elliott CMA - 05/14/2024 3:30 PM EDT Liz reports testing for her pre-op (right hip scheduled June 07) showed a sodium of 128, stating she needs a clearance due to how low it is. She also says the pt reported lightlessness with blood pressure 70/50. She says the pt stated she is only eating 1 meal a day due to GI symptoms. Pt also reported drinking lots of water. Liz left her phone number in case PCP would like to discuss. [phone] * Telephone Encounter - Izabella Reese OSA - 05/14/2024 3:26 PM EDT Liz BARRY calling from [facility] [address] Pre Admission testing to inform the provider of abnormal testing that was completed today. Transferred to nurse line documented in this encounter Plan of Treatment Upcoming Encounters Date Type Department Care Team (Late st Contact Info) Description 06/21/2024 11:30 AM EDT Appointment Radiology, [facility] [address] [place] [address] 07/06/2024 2:15 PM EDT Office Visit Gynecology Urology, [place] [address] [place] [address] Shania Klein MD [address] [place] [address] [place] Nurse [employer] [facility] [address] [place] [address] 08/22/2024 11:30 AM EDT Telemedicine Psychiatry [place] [address] [place] [phone] Mal Gonzalez, [address] [facility], [place] [phone] 08/27/2024 11:20 AM EDT Office Visit Rheumatology, [address] 1st Floor [place] [phone] Emily Merino MD [address] [place] [address] [place] [address] 09/10/2024 8:20 AM EST Office Visit [facility], [facility] [address] [place] [address] SharerMary MD [address] [place] [address] 12/04/2024 11:00 AM EST [facility] 1[address] Floor [place] [phone] Emily Merino MD [address] [place] [address] [place] [address] Scheduled Orders Name Type Priority Associated Diagnoses Orde r Schedule BASIC METABOLIC PANEL Lab Routine Hyponatremia Expected: 05/17/2024 (Approximate), Expires: 05/17/2025 Health Maintenance Due Date Last Done Comments Cologuard 2018 Fecal Occult Blood Test 2018 Sigmoidoscopy 2018 COVID-19 Vaccine ( season) 2023 02/09/2021, 01/07/2021, 01/07/2021 Hepatitis B Vaccine (2 of 3 - 19+ 3-dose series) 04/13/2024 03/16/2024 Zoster Vaccines (2 of 2) 05/11/2024 03/16/2024 Mammogram 06/21/2024 06/21/2023, 03/0 11/2020, 02/13/2020, Additional history exists Influenza Vaccine (FLU shot) (#1) 2024 Depression Monitoring 03/12/2025 03/12/2024 GFR 03/16/2025 03/16/2024, 02/05, 02/16/2024, Additional history exists Albumin/Creatinine Ratio 06/25/2026 06/25/2023 [...] as of this encounter Visit Diagnoses Diagnosis Hyponatremia- Primary Hyposmolality and/or hyponatremia documented in this encounter Care Teams Patcher Helper Relationship Specialty Start Date End Date Sharer, Mary Raymond MD [address] [place] [address] PCP - General Family Medicine 02/16/24 documented as of this encounter
--- OUTSIDE RECORDS SUMMARY | 2024-06-07 14:37 | External Medical Summary | Summary of Care ---
Author Name Unknown Organization [facility] Address [address] [place] [address] Phone [phone] Care Team Providers Care Education Analyst Name Role Phone Sharer, Mary Raymond MD Primary Care Provider [phone] Reason for Visit * Reason Onset Date Comments Abnormal Test Results 05/14/2024 Lm about E R 05/14/24 x2 Encounter Details Date Type Department Care Team (Late st Contact Info) Description 05/14/2024 Telephone Family Practice, [facility] [address] [place] [address] Sharer, Mary Raymond MD [address] [place] [address] Abnormal Test Results (Lm about ER 05/14/24 x2) Allergies Active Allergy Reactions Criticality Noted Date Comments Cefuroxime 05/02/2023 Bupropion 05/02/2023 documented as of this encounter (statuses as of 05/17/2024) Medications Medication Sig Dispensed Refills Start Date [...] suspected opioid overdose. Seek immediate medical attention. [email or web address]?[email or web address] 1 Each 3 4 Active methylPREDNISolone 4 [...] as of this encounter (statuses as of 05/17/2024) Active Problems Problem Noted Date Diagnosed Date [...] finding 07/15/2023 Post covid-19 condition, unspecified 06/27/2023 detention current use of systemic steroids 06/27 Food [...] as of this encounter (statuses as of 05/17/2024) Resolved Problems Problem Noted Date Diagnosed Date [...] as of this encounter (statuses as of 05/17/2024) Immunizations Name Administration Dates Next Due COVID-19 mRNA, LNP-s, No Pre serve, 2-Dose Series (Moderna) 02/09/2021,01/07/2021,01/07/2021 Hepatitis B, 20+ yrs 03/16/2024 Pneumococcal Conjugate Vacci ne, 20-valent ([id number]) 05/02/2023 TD - Tetanus/Diptheria (ADULT) 06/17/1999 TDAP [...] encounter Miscellaneous Notes * Addendum Note - Mary Boykin MD [...] in case PCP would like to discuss. [phone] * Telephone Encounter - Izabella Reese OSA - 05/14/2024 3:26 PM EDT Liz BARRY calling from [facility] Pre Admission testing to inform the provider of abnormal testing that was completed today. Transferred to nurse line documented in this encounter Plan of Treatment Upcoming Encounters Date Type Department Care Team (Late st Contact Info) Description 06/21/2024 11:30 AM EDT Appointment Radiology, [facility] [address] [place] [address] 07/06/2024 2:15 PM EDT Office Visit Gynecology [facility], [place] [address] [facility] [address] Shania Klein MD [address] [place] [address] Nurse dEen Housekeeping Cleaner [facility] [address] [facility] [place] [address] 08/22/2024 11:30 AM EDT Telemedicine Psychiatry [place] [address] [place] [phone] Mal Gonzalez, DO [address] [facility] [place], [place] [address] 08/27/2024 11:20 AM EDT Office Visit Rheumatology, [place] Floor [place] [phone] Emily Merino MD [address] [place] [address] [place] [address] 09/10/2024 8:20 AM EST Office Visit Family Practice, [facility] [address] [place] [address] SharerMary MD [address] [place] [address] 12/04/2024 11:00 AM EST Office Visit [facility] 1[address] Floor [place] [phone] Emily Merino MD [address] [place] [address] [place] [address] Scheduled Orders Name Type Priority Associated Diagnoses [...] Depression Monitoring 03/12/2025 03/12/2024 GFR 03/16/2025 03/16/2024, /06/2024, 02/16/2024, Additional history exists Albumin/Creatinine Ratio 06/25/2026 [...] hyponatremia documented in this encounter Care Teams Education Analyst Relationship Specialty Start Date End Date Sharer, Mary Raymond MD [address] [place] [address] PCP - General Family Medicine 02/16/24 documented as of this encounter
--- OUTSIDE RECORDS SUMMARY | 2024-06-07 14:37 | External Medical Summary | Summary of Care ---
Author Name Unknown Organization [facility] Address [address] [facility] [place] [address] Care Team Providers Care Autistic Teacher Name Role Phone Sharer, Mary Raymond MD Primary Care Provider [phone] Reason for Visit * Reason Onset Date Comments Order Request 05/22/2024 Encounter Details Date Type Department Care Team (Late st Contact Info) Description 05/22/2024 Telephone [facility]rology[facility] [address] [place] [address] [place] [phone] Jeanne Rubio MD [address] [place] [address] [address] [place] [address] Order Request Allergies Active Allergy Reactions Criticality Noted Date [...] suspected opioid overdose. Seek immediate medical attention. [email or web address] 1 Each 3 4 Active methylPREDNISolone 4 [...] mL 11 4 05/17/20 24 Discontinu ed(Refill) documented as of this encounter (statuses as [...] finding 07/15/2023 Post covid-19 condition, unspecified 06/27/2023 half-way current use of systemic steroids 06/27 Food insecurity 06/15/2021 Overview: Per [facility] Protocol History of 2018 novel [...] yrs 03/16/2024 Pneumococcal Conjugate Vacci ne, 20-valent ([id number]) 05/02/2023 TDAP (age 10 and older)(Boostrix) 05/01/2020 [...] Encounter - Sneha Sahu MED ASSIST - 05/22/2024 8:55 AM EDT Central scheduling called in regarding the EEG that Dr Rubio had ordered for the pt back in February. They have reached out to the pt multiple times and have not been able to reach the pt. They have exhausted their attempts. If pt is still to have this done the pt will need to contact central scheduling to set up the appt. documented in this encounter Plan of Treatment Upcoming Encounters Date Type Department Care Team (Late st Contact Info) Description 06/21/2024 11:30 AM EDT Appointment Radiology, [facility] [address] [place] [address] 07/06/2024 2:15 PM EDT Office Visit Gynecology Urology, [place] [address] [place] [address] Shania Klein MD [address] [facility] [place] [address] Nurse Eden Shampoo Assistant [facility] [address] [facility] [place] [address] 08/22/2024 11:30 AM EDT Telemedicine Psychiatry [place] [address] [place] [phone] Carlos Mal, DO [address] [facility] [place], [place] [address] 08/27/2024 11:20 AM EDT Office Visit Rheumatology, [place] 1st Floor [place] [phone] Emily Merino MD [address] [place] [address] [place] [address] 09/10/2024 8:20 AM EST Office Visit Family Practice, [facility] [address] [place] [address] SharerMary MD [address] [place] [address] 12/04/2024 11:00 AM EST [place] Floor [place] [phone] Emily Merino MD [address] [place] [address] [place] [address] Health Maintenance Due Date Last Done Comments Cologuard 2018 Fecal Occult Blood Test 2018 Sigmoidoscopy 2018 COVID-19 Vaccine ( season) 2023 02/09/2021, 01/07/2021, 01/07/2021 Hepatitis B Vaccine (2 of 3 - 19+ 3-dose series) 04/13/2024 03/16/2024 Zoster Vaccines (2 of 2) 05/11/2024 03/16/2024 Mammogram 06/21/2024 06/21/2023, 03/0 11/2020, 02/13/2020, Additional history exists Influenza Vaccine (FLU shot) (#1) 2024 GFR 03/16/2025 03/16/2024, 0406/2024, 02/16/2024, Additional history exists Depression Monitoring 05/21/2025 [...] filedocumented as of this encounter Care Teams Autistic Teacher Relationship Specialty Start Date End Date Sharer, Mary Raymond MD [address] [place] [address] PCP - General Family Medicine 02/16/24 documented as of this encounter
--- OUTSIDE RECORDS SUMMARY | 2024-06-07 14:37 | External Medical Summary | Summary of Care ---
Author Name Unknown Organization [facility] Address [address] [place] [address] Phone [phone] Care Team Providers Care President [employer] Name Role Phone Sharer, Mary Raymond MD Primary Care Provider [phone] Reason for Referral * Precert (Within 10 days (routine)) - Pending Review Specialty Diagnoses / Procedures Referred By Contac t Referred To Contact Radiology Diagnoses Liver lesion, left lobe Procedures MRI LIVER W WO CONTRAST Emma Kulkarni DO [address] [place] [address] Referral ID Status Reason Start Date Expiration Date V isits Requested Visits Authorized [id number] Pending Review 05/14/2024 07/13/[phone] Reason for Visit * Precert (Within 10 days (routine)) - Pending Review Specialty Diagnoses / Procedures Referred By Elizabeth edmonds Referred To Contact Radiology Diagnoses Liver lesion, left lobe Procedures MRI LIVER W WO CONTRAST Emma Kulkarni DO [address] [place] [address] Referral ID Status Reason Start Date Expiration Date V isits Requested Visits Authorized [id number] Pending Review 05/14/2024 07/13/2024 [id number] Encounter Details Date Type Department Care Team (Latest Contact Info) Description 05/16/2024 7:14 AM EDT - 05/16/2024 11:59 PM EDT Hospital Encounter Radiology, [facility] [address] [place] [address] Arrived Discharge Disposition: Home - Self Care Allergies Active Allergy Reactions Criticality Noted Date Comments Cefuroxime 05/02/2023 Bupropion 05/02/2023 documented as of this encounter (statuses as of 05/17/2024) Medications Medication Sig Dispensed Refills Start Date End Date Status Blood Pressure KITIndications:Chucky tiabraulio hypertension with goal blood pressure less than [...] suspected opioid overdose. Seek immediate medical attention. [email or web address] 1 Each 3 4 Active methylPREDNISolone 4 MG Oral Tablet (Medrol) Take 1 Tablet by mouth in the morning. 4 Active Transderm-Scop 1 MG/3DAYS Transdermal Patch 72 HourIndications:[address] e[address] Place 1 Patch over 72 hours topically [...] the morning. 180 Capsule 1 4 Active methylPREDNISolone 4 MG Oral Tablet Therapy Pack (Medrol Dosepack)Indications :Systemic lupus erythematosus, unspecified SLE type, unspecified organ involvement status (HCC) follow package directions 21 Tablet 4 05/16/20 24 Discontinu ed(Medicat ion List Clean Up) Hospital, Clinic, or Other Facility Administered Medication Ordered Dose Route Frequency Start Date End Date Status sodium chloride 0.9 % flush/inj 10 mL 10 mL IV PUSH ONCE 05/16/2024 05/16/2024 Ended documented as of this encounter (statuses as [...] yrs 03/16/2024 Pneumococcal Conjugate Vacci ne, 20-valent ([id number]) 05/02/2023 TDAP (age 10 and older)(Boostrix) 05/01/2020 [...] on file Are you (or your family) mraibel eless or worried that you might be [...] as of this encounter Miscellaneous Notes * Result Encounter Note - GeEmma tavares DO - 05/16/2024 8:30 AM EDT MRI reveals small hepatic cysts. These are benign. Nothing further to do. Patient notified. documented in this encounter Plan of Treatment Upcoming Encounters Date Type Department Care Team (Late st Contact Info) Description 06/21/2024 11:30 AM EDT Appointment Radiology, [facility] [address] [place] [address] 07/06/2024 2:15 PM EDT Office Visit Gynecology Urology, [place] [address] [place] [address] Shania Klein MD [address] [place], [place] [phone] Nurse Eden Medical Lab Assistant [facility] [address] [place] [address] 08/22/2024 11:30 AM EDT Telemedicine Psychiatry [facility] [place] [address] [place] [address] Mal Gonzalez DO [address] [place] [address] 08/27/2024 11:20 AM EDT [facility] [address] [place] [address] Dr [address] Floor [place] [phone] Emily Merino MD [address] [place] [address] [place] [address] 09/10/2024 8:20 AM EST Office Visit Family Practice, [facility] [address] [place] [address] Sharer, Mary Raymond MD [address] [place] [address] 12/04/2024 11:00 AM EST Office Visit Rheumatology, [place] [facility] [address] [place] [address] Dr 1[address] Floor [place] [phone] Emily Merino MD [address] [place] [address] [place] [address] Health Maintenance Due Date Last Done Comments [...] Procedure Name Priority Date/Time Associated Diagnosis Comments MRI LIVER W WO CONTRAST Routine 05/16/2024 9:33 AM EDT Liver lesion, left lobe documented in this encounter Results * MRI LIVER W WO CONTRAST (05/16/2024 9:33 AM EDT) Anatomical Region Laterality Modality Abdomen Magnetic Resonan ce 05/16/2024 1:35 PM EDT Impressions 05/16/2024 1:33 PM EDT IMPRESSION Hepatic cyst. Narrative 05/16/2024 1:33 PM EDT EXAM MRI LIVER W WO CONTRAST-05/16/2024 9:33 am HISTORY Hypodense left hepatic lesion COMPARISON None TECHNIQUE Multiplanar, multisequential MR imaging of the abdomen was performed before and after the intravenous administration of Gadavist contrast. FINDINGS Liver: The liver demonstrates normal signal and morphology. There is an approximately 2 cm cyst along the anterior surface of the liver. No suspicious lesions are seen. Biliary ducts: Normal in caliber. Gallbladder: Status post cholecystectomy. Pancreas: Within normal limits. Spleen: Within normal limits. Adrenal glands: Within normal limits. Kidneys: There are multiple hemorrhagic/proteinaceous cysts in both kidneys. Lymph nodes: Within normal limits. Peritoneum/Retroperitoneum: No ascites. Vessels: Within normal limits. Abdominal wall: Within normal limits. Lower chest: Within normal limits. Bones: Degenerative changes. Procedure Note Manjit Bro MD - 05/16/2024 EXAM MRI LIVER W WO CONTRAST-05/16/2024 9:33 am HISTORY Hypodense left hepatic lesion COMPARISON None TECHNIQUE Multiplanar, multisequential MR imaging of the abdomen was performedbefore and after the intravenous administration of Gadavist contrast. FINDINGS Liver: The liver demonstrates normal signal and morphology. There is anapproximately 2 cm cyst along the anterior surface of the liver. Nosuspicious lesions are seen. Biliary ducts: Normal in caliber. Gallbladder: Status post cholecystectomy. Pancreas: Within normal limits. Spleen: Within normal limits. Adrenal glands: Within normal limits. Kidneys: There are multiple hemorrhagic/proteinaceous cysts in bothkidneys. Lymph nodes: Within normal limits. Peritoneum/Retroperitoneum: No ascites. Vessels: Within normal limits. Abdominal wall: Within normal limits. Lower chest: Within normal limits. Bones: Degenerative changes. IMPRESSION IMPRESSION Hepatic cyst. Emma Polly Shad DO RAD MRI-MRA documented in this encounter Visit Diagnoses Diagnosis Liver lesion, left lobe Other specified disorders of liver documented in this encounter Administered Medications Inactive Administered Medications - up to 3 most recent administrations Medication Order MAR Action Action Date Dose Rate Site gadobutrol (Gadavist) inj 2 mL 2 mL, Intravenous, ONCE, On Tue05/16/24 at 0817, For 1 dose, Radiology Medication Routing (Non-IR) Given 05/16/2024 9:27 AM EDT 8 mL sodium chloride 0.9 % flush/inj 10 mL 10 mL, IV Push, ONCE, On Tue05/16/24 at 0817, For 1 dose, Do not flush if lock, PICC, or central line not in place; IV infusing or unable to flush., Radiology Medication Routing (Non-IR) Given 05/16/2024 9:27 AM EDT 35 mL documented in this encounter Care Teams President Trust Company Relationship Specialty Start Date End Date Sharer, Mary Raymond MD [address] [place] [address] PCP - General Family Medicine 02/16/24 documented as of this encounter
--- OUTSIDE RECORDS SUMMARY | 2024-06-07 14:37 | External Medical Summary | Summary of Care ---
Author Name Unknown Organization [facility] Address [address] [place] [address] Phone [phone] Care Team Providers Care Production Service Manager Name Role Phone Sharer, Mary Raymond MD Primary Care Provider [phone] Reason for Visit * Reason Onset Date Comments Referral 02/20/2024 [facility] Pain Manage ment Encounter Details Date Type Department Care Team (Late st Contact Info) Description 02/20/2024 Telephone Pharmacy Call Center [phone] [place] [address] Pharmacist1, [facility] [address] [place] [address] Referral ([facility] Pain Management) Allergies Active Allergy Reactions Criticality Noted Date Comments Cefuroxime 05/02/2023 Bupropion 05/02/2023 documented as of this encounter (statuses as of 05/21/2024) Medications Medication Sig Dispensed Refills Start Date End Date Status Blood Pressure KITIndications:Esse ntial hypertension with goal blood pressure less than 140/90 Check your blood pressure daily. 1 Kit 01/25/20 20 Active Ferrous Sulfate 325 (65 Fe) MG Oral Tablet (Feosol)Indications :Low ferritin Take 1 Tab by mouth 2 times a day with morning and evening meals. 60 Tab 3 02/04/20 21 Active Movantik 25 MG Oral Tablet (Naloxegol Oxalate) Take 1 Tablet by mouth. Active Methadone 50 mg/ml oral soln (ECH) Take 103 mg by mouth daily Active Fluticasone Propionate 50 MCG/ACT Nasal Suspension (Flonase)Indication s:Post-nasal drip Administer 2 Sprays into each nostril in the morning. 18.2 mL 07/27/20 23 Active Pramipexole Dihydrochloride 0.25 MG Oral Tablet (Mirapex)Indication s:Restless legs syndrome TAKE 2 OR 3 TABLETS BY MOUTH NIGHTLY 1 HOUR BEFORE BEDTIME 180 Tablet 5 01/04/20 24 Active Omeprazole 40 MG Oral Capsule Delayed Release (PriLOSEC)Indicatio ns:Gastro-esophagea l reflux disease without esophagitis Take 1 Capsule by mouth in the morning. 90 Capsule 01/04/20 24 Active Naloxone HCl 4 MG/0.1ML Nasal Liquid (Narcan Nasal)Indications:H igh risk medication use Administer 0.1 mL into nostril as needed (sedation, respiratory suppresion). Administer 1 spray into 1 nostril for suspected opioid overdose. Seek immediate medical attention. [email or web address]/[email or web address]? [email or web address] 1 Each 01/04/20 24 Active methylPREDNISolone 4 MG Oral Tablet (Medrol) Take 1 Tablet by mouth in the morning. 01/20/20 24 Active Transderm-Scop 1 MG/3DAYS Transdermal Patch 72 HourIndications:[facility] 1 Patch over 72 hours topically on the skin every 3 days. 4 hours before event. May replace every 3 days. . 24 Patch 1 01/20/20 24 Active Pilocarpine HCl 7.5 MG Oral Tablet TAKE 1 TABLET BY MOUTH THREE TIMES DAILY 90 Tablet 02/07/20 24 Active Amitriptyline HCl 150 MG Oral Tablet (Elavil) Take 1 Tablet by mouth at bedtime. 90 Tablet 3 02/07/20 24 Active Nadolol 20 MG Oral Tablet (Corgard) Take 1 Tablet by mouth in the morning. 30 Tablet 3 02/13/20 24 Active Hydroxychloroquine Sulfate 200 MG Oral Tablet (Plaquenil)Indicati ons:Systemic lupus erythematosus, unspecified SLE type, unspecified organ involvement status (HCC) Take 2 Tablets by mouth in the morning. Two tablets daily with food. 180 Tablet 3 03/01/20 23 024 Discontinued Benlysta 200 MG/ML Subcutaneous Solution Auto-injector (Belimumab)Indicati ons:Systemic lupus erythematosus, unspecified SLE type, unspecified organ involvement status (HCC) Inject 1 mL (1 pen) under the skin once a week. 4 mL 03/11/20 024 Discontinued(Re fill) Mometasone Furoate 0.1 % External Cream Apply topically to affected area daily. Apply to scalp 024 Discontinued(Re fill) Lisinopril 20 MG Oral Tablet (Prinivil)Indicatio ns:Essential (primary) hypertension Take 1 Tablet by mouth in the morning. 90 Tablet 1 11/28/19 24 024 Discontinued(Co dication List Clean Up) Cyclobenzaprine HCl 10 MG Oral Tablet (Flexeril) TAKE 1 TABLET BY MOUTH THREE TIMES DAILY NEEDED 90 Tablet 2 12/08/19 24 024 Discontinued(Re fill) hydrOXYzine HCl 50 MG Oral TabletIndications:A nxiety TAKE 1 TABLET BY MOUTH EVERY 8 HOURS NEEDED FOR ANXIETY 270 Tablet 3 12/09/19 24 024 Discontinued(Pa tient preference/disc ontinuation) DULoxetine HCl 60 MG Oral Capsule Delayed Release Particles (Cymbalta)Indicatio ns:Fibromyalgia Take 2 Capsules by mouth in the morning. 180 Capsule 3 12/15/19 24 024 Discontinued(Re fill) Acyclovir 400 MG Oral Tablet (Zovirax)Indication s:Fibromyalgia TAKE 1 TABLET BY MOUTH TWO TIMES DAILY 60 Tablet 3 12/15/19 24 024 Discontinued Mycophenolate Mofetil 250 MG Oral Capsule (Cellcept)Indicatio ns:Systemic lupus erythematosus, unspecified SLE type, unspecified organ involvement status (HCC) Take 2 Capsules by mouth in the morning and 2 Capsules before bedtime 120 Capsule 12/20/19 24 024 Discontinued(Re fill) Levothyroxine Sodium 75 MCG Oral Tablet (Levoxyl)Indication s:Acquired hypothyroidism TAKE 1 TABLET BY MOUTH EVERY DAY 90 Tablet 3 01/02/20 24 024 Discontinued(Pa tient preference/disc ontinuation) Colchicine 0.6 MG Oral TabletIndications:S ystemic lupus erythematosus, unspecified SLE type, unspecified organ involvement status (HCC) Take 1 Tablet by mouth in the morning. 90 Tablet 3 01/17/20 24 024 Discontinued(Andrés nicolas preference/disc ontinuation) Nicotine 21 MG/24HR Transdermal Patch 24 Hour (Nicoderm CQ)Indications:[place]oba tobacco flavorer use Place 1 Patch over 24 hours topically on the skin daily. 30 Patch 2 01/20/20 24 024 Discontinued(Me dication/Dose Changed) documented as of this encounter (statuses as of 05/21/2024) Active Problems Problem Noted Date Diagnosed Date [...] finding 07/15/2023 Post covid-19 condition, unspecified 06/27/2023 [facility] current use of systemic steroids 06/27 Food insecurity 06/15/2021 Overview: Per [facility] Protocol History of 2019 novel [...] as of this encounter (statuses as of 05/21/2024) Resolved Problems Problem Noted Date Diagnosed Date [...] as of this encounter (statuses as of 05/21/2024) Immunizations Name Administration Dates Next Due COVID-19 mRNA, LNP-s, No Pre serve, 2-Dose Series (Moderna) 02/09/2021,01/07/2021,01/07/2021 Pneumococcal Conjugate Vacci ne, 20-valent ([id number]) 05/02/2023 TDAP (age 10 and older)(Boostrix) 05/01/2020 documented as of this encounter Social History [...] ages 0-17 years) Not on file 01/19/2024 Sex and Gender Information Value Date Recorded Sex Assigned at Female 10/25/2019 11:24 AM EST Gender Identity Female 10/25/2019 11:24 AM EST Sexual Orientation Straight 10/25/2019 11 :24 AM EST Job Start Date Occupation Industry Not on file Not on file Not on file documented as of this encounter Miscellaneous Notes * Telephone Encounter - Danyelle Mackey RPh - 02/22/2024 3:53 PM EDT Referral received and reviewed. Reason for referral: Pain Please Schedule patient. Referring provider: Mary Lang MD Initial appt length: 60 min Appointment type indicated: Pt Prefence- Inperson or Video Preferred Clinic for Appointment: [facility] *Patient receiving methadone through methadone clinic; some previous notes indicate that she will be tapered off methadone? MTM will be focusing on non- opioid medication options. Danyelle Mackey RPh 02/22/2024, 3:53 PM * Telephone Encounter - Polly Miranda OSA - 02/20/2024 12:10 PM EDT pT called to check status of referral * Telephone Encounter - Christine Bruno PHARM Tech - 02/20/2024 11:32 AM EDT Diagnosis: Chronic pain syndrome [G89.4] Comments Pharmacist Medication Therapy Management: Minimum frequency patient should be seen in person for medication management: as appropriate per clinical condition and patient status By my signature, I understand that my patient Candy Cruz will have her medication therapymanaged by the [facility] Medication Therapy Disease Management Clinic ([facility]) per established policies, procedures, and protocols. I also certify that this referral may serve as an initiation of service for the management of drug therapy in the above noted patient. [facility] providers will be responsible for scheduling patient visits, obtaining appropriate laboratory studies, and adjusting medication management therapy per patient's need, in addition to those roles spelled out in the clinic policy, procedures, and drug management protocols. I understand that the service provided by the [facility] is voluntary and have informed patient that they can refuse the service at their discretion. I am aware that the [facility] will provide me with a copy of the patient encounter via my [employer]. I authorize the [facility] to carry out these activities on my behalf. I consider this program to be a necessary part of the patient's medical care. Mary Lang MD Order Specific Questions Referral Priority Within 10 days (routine) Where should this appointment be scheduled? [facility] Referring Provider Role: Primary Care Reason for Referral: Pain Pain Diagnosis: Chronic Pain Syndrome Further Details of Diagnosis: on Methadone for chronic pain issues, not controlling symptoms Pain Treatment Options: Opioids and/or Non-opioids Does patient have a signed RIYA? This is required for patients on opioids No Has patient completed a Urine Drug Screen in the past 3 months? This is required for patients on opioids No Pain Treatment Goal: Med Optimization documented in this encounter Plan of Treatment Upcoming Encounters Date Type Department Care Team (Late st Contact Info) Description 06/21/2024 11:30 AM EDT Appointment Radiology, [facility] [address] [place] [address] 07/06/2024 2:15 PM EDT Office Visit Gynecology Urology, [place] [address] [place] [address] Shania Klein MD [address] [place] [address] [place] Nurse Computer Systems Architect [facility] [address] [place] [address] 08/22/2024 11:30 AM EDT Telemedicine Psychiatry [place] [address] [place] [phone] Mal Gonzalez DO [address] [place] [facility] [place] [address] 08/27/2024 11:20 AM EDT Office Visit Rheumatology, [place] [address] Floor [place] [phone] Emily Merino MD [address] [place] [address] [place] [address] 09/10/2024 8:20 AM EST Office Visit Family Practice, [facility] [address] [place] [address] SharerMary MD [address] [place] [address] 12/04/2024 11:00 AM EST Office [facility] [address] 1st Floor [place] [phone] Emily Merino MD [address] [place] [address] [place] [address] Health Maintenance Due Date Last Done Comments [...] as of this encounter Care Teams Production Service Manager Relationship Specialty Start Date End Date Sharer, Mary Rayomnd MD [address] [place] [address] PCP - General Family Medicine 02/16/24 documented as of this encounter
--- OUTSIDE RECORDS SUMMARY | 2024-06-07 14:37 | External Medical Summary | Summary of Care ---
Author Name Unknown Organization [facility] Address [address] [facility] [place] [address] Phone [phone] Care Team Providers Care Cloth Picker Name Role Phone Sharer, Mary Raymond MD Primary Care Provider [phone] Encounter Details Date Type Department Care Team (Late st Contact Info) Description 05/19/2024 Orders Only PATIENT PORTAL DO NOT DELETE THIS DEPT USED BY [place] [id number] Allergies Active Allergy Reactions Criticality Noted Date Comments Cefuroxime 05/02/2023 Bupropion 05/02/2023 documented as of this encounter (statuses as of 05/19/2024) Medications Medication Sig Dispensed Refills Start Date [...] suspected opioid overdose. Seek immediate medical attention. [email or web address] 1 Each 3 01/04/2024 Active methylPREDNISolone 4 [...] Take 500 mg by mouth. 12/08/2022 Active Benlysta 200 MG/ML Subcutaneous Solution Auto-injector (Belimumab)Indication s:Systemic lupus erythematosus, unspecified SLE type, unspecified organ involvement status (HCC) Inject 1 mL (1 pen) under the skin once a week. 4 mL 11 02/26/2024 Active Cyclobenzaprine HCl 10 MG Oral Tablet (Flexeril) TAKE 1 TABLET BY MOUTH THREE TIMES DAILY NEEDED 90 Tablet 2 02/28/2024 Active Milk Thistle Seed Powder Use as [...] the morning. 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 06/27 Food insecurity 06/15/2021 Overview: Per [facility] Protocol History of 2018 novel [...] as of this encounter (statuses as of 05/19/2024) Resolved Problems Problem Noted Date Diagnosed Date [...] as of this encounter (statuses as of 05/19/2024) Immunizations Name Administration Dates Next Due COVID-19 mRNA, LNP-s, No Pre serve, 2-Dose Series (Moderna) 02/09/2021,01/07/2021,01/07/2021 Hepatitis B, 20+ yrs 03/16/2024 Pneumococcal Conjugate Vacci ne, 20-valent ([id number]) 05/02/2023 TDAP (age 10 and older)(Boostrix) 05/01/2020 [...] Description 06/21/2024 11:30 AM EDT Appointment Radiology, [facility] [address] [place] [address] 07/06/2024 2:15 PM EDT Office Visit Gynecology Urology, [place] [address] [place] [address] Shania Klein MD [address], [place] [id number] Nurse [place] Supervisor [employer] [facility] [address] [place] [address] 08/22/2024 11:30 AM EDT Telemedicine Psychiatry [facility] [address] [place] [phone] Mal Gonzalez DO [address] [place] [address] 08/27/2024 11:20 AM EDT [facility] [place] Floor [place] [phone] Emily Merino MD [address] [place] [address] [place] [address] 09/10/2024 8:20 AM EST Office Visit Family Practice, [facility] [address] [place] [address] SharerMary MD [address] [place] [address] 12/04/2024 11:00 AM EST Office Visit Rheumatology, [place] [facility] [address] [place] [address] Dr 1[address] Floor [place] [phone] Emily Merino MD [address] [place] [address] [place] [address] Health Maintenance Due Date [...] Depression Monitoring 03/12/2025 03/12/2024 GFR 03/16/2025 03/16/2024, 0406/2024, 02/16/2024, Additional history exists Albumin/Creatinine Ratio 06/25/2026 [...] filedocumented as of this encounter Care Teams Cloth Picker Relationship Specialty Start Date End Date Sharer, Mary Raymond MD [address] [place] [phone] PCP - General Family Medicine 02/16/24 documented as of this encounter
--- OUTSIDE RECORDS SUMMARY | 2024-06-07 14:37 | External Medical Summary | Summary of Care ---
Author Name Unknown Organization [facility] Address [address] [place] [address] Phone [phone] Care Team Providers Care Manager Nicu Name Role Phone Sharer, Mary Raymond MD Primary Care Provider [phone] Encounter Details Date Type Department Care Team (Latest Contact Info) Description 05/16/2024 7:13 AM EDT Hospital Encounter Radiology, [facility] [address] [place] [address] Arrived Discharge Disposition: Home - Self Care [...] suspected opioid overdose. Seek immediate medical attention. [email or web address] 1 Each 3 01/04/2024 Active methylPREDNISolone 4 [...] finding 07/15/2023 Post covid-19 condition, unspecified 06/27/2023 hand model current use of systemic steroids 06/27 Food insecurity 06/15/2021 Overview: Per [facility] Protocol History of 2019 novel coronavirus [...] yrs 03/16/2024 Pneumococcal Conjugate Vacci ne, 20-valent ([id number]) 05/02/2023 TDAP (age 10 and older)(Boostrix) 05/01/2020 [...] Description 06/21/2024 11:30 AM EDT Appointment Radiology, [facility] [address] [place] [address] 07/06/2024 2:15 PM EDT Office Visit Gynecology Urology, [place] [address] [place] [address] Shania Klein MD [address] [place], [place] [phone] [place] Nurse Locomotive Crane Operator Helper [facility] [address] [place] [address] 08/22/2024 11:30 AM EDT Telemedicine Psychiatry [place] [address] [place] [phone] Mal Gonzalez DO [address] [place] [address] 08/27/2024 11:20 AM EDT Office Visit Rheumatology, [address] Floor [place] [phone] Emily Merino MD [address] [place] [address] [place] [address] 09/10/2024 8:20 AM EST Office Visit Family Practice, [facility] [address] [place] [address] SharerMary MD [address] [place] [address] 12/04/2024 11:00 AM EST Office Visit Rheumatology, [place] [facility] [address] [facility] [address] 1[address] Floor [place] [phone] Emily Merino MD [address] [place] [address] [place] [address] Health Maintenance Due Date Last Done Comments Cologuard 2018 Fecal Occult Blood Test 2018 Sigmoidoscopy 2018 COVID-19 Vaccine ( - 2022- season) 2023 02/09/2021, 01/07/2021, 01/07/2021 Hepatitis B [...] Procedure Name Priority Date/Time Associated Diagnosis Comments US PELVIS TRANS-VAGINAL NON-OB Routine 05/16/2024 7:35 AM EDT Pelvic pain in female documented in this encounter Results * US PELVIS TRANS-VAGINAL NON-OB (05/16/2024 7:35 AM EDT) Anatomical Region Laterality Modality Pelvis, Body Ultrasound 05/16/2024 9:35 AM EDT Impressions 05/16/2024 9:59 AM EDT IMPRESSION: Probable adenomyosis. I have personally reviewed this examination and agree with the resident/fellow physician's interpretation. Narrative 05/16/2024 9:59 AM EDT EXAM: US PELVIS TRANS-VAGINAL NON-OB - 05/16/2024 7:35 am HISTORY: pelvic pain evaluation TECHNIQUE: Transvaginal ultrasound of the pelvis. COMPARISON: Pelvic ultrasound 03/16/2024. FINDINGS: LMP: Not reported. UTERUS: 6.9 cm x 3.4 cm x 4.7 cm. MYOMETRIUM: Heterogeneous. ENDOMETRIUM: 6.8 mm in thickness, within normal limits. Endometrial/myometrial junctional zone is somewhat indistinct noting echogenic rests, as can be seen in adenomyosis. RIGHT OVARY: 1.5 cm x 1.1 cm x 2.3 cm, 1.9 ml Unremarkable LEFT OVARY: 1.9 cm x 0.9 cm x 2.0 cm, 1.7 ml Unremarkable MISCELLANEOUS: No significant free fluid. Procedure Note Matt Hutchins II, MD - 05/16/2024 EXAM: US PELVIS TRANS-VAGINAL NON-OB - 05/16/2024 7:35 am HISTORY: pelvic pain evaluation TECHNIQUE: Transvaginal ultrasound of the pelvis. COMPARISON: Pelvic ultrasound 03/16/2024. FINDINGS: LMP: Not reported. UTERUS: 6.9 cm x 3.4 cm x 4.7 cm. MYOMETRIUM: Heterogeneous. ENDOMETRIUM: 6.8 mm in thickness, within normal limits.Endometrial/myometrial junctional zone is somewhat indistinct notingechogenic rests, as can be seen in adenomyosis. RIGHT OVARY: 1.5 cm x 1.1 cm x 2.3 cm, 1.9 ml Unremarkable LEFT OVARY: 1.9 cm x 0.9 cm x 2.0 cm, 1.7 ml Unremarkable MISCELLANEOUS: No significant free fluid. IMPRESSION IMPRESSION: Probable adenomyosis. I have personally reviewed this examination and agree with the resident/fellow physician's interpretation. Eileen Driscoll MD RAD ULTRASOUND documented in this encounter Visit Diagnoses Diagnosis Pelvic pain in female Unspecified symptom associated with female genital organs documented in this encounter Care Teams Manager Nicu Relationship Specialty Start Date End Date Sharer, Mary Raymond MD [address] [place] [address] PCP - General Family Medicine 02/16/24 documented as of this encounter
--- OUTSIDE RECORDS SUMMARY | 2024-06-07 14:38 | External Medical Summary | Summary of Care ---
Author Name Unknown Organization [facility] Address [address] [place] [address] Phone [phone] Care Team Providers Care Machine Design Teacher Name Role Phone Sharer, Mary Raymond MD Primary Care Provider Reason for Visit * Reason Comments Follow Up Encounter Details Date Type Department Care Team (Late st Contact Info) Description 05/16/2024 11:30 AM EDT Office Visit Cardiology, [facility] [address] [place] [address] Candy Dalal CRNP [address] [place] [id number] Pre-operative cardiovascular examination*; Long QT syndrome; HTN, goal below 130/80 Allergies Active Allergy Reactions Criticality Noted Date Comments Cefuroxime 05/02/2023 Bupropion 05/02/2023 documented as of this encounter (statuses as of 05/16/2024) Medications Medication Sig Dispensed Refills Start Date [...] suspected opioid overdose. Seek immediate medical attention. [email or web address] 1 Each 3 4 Active methylPREDNISolone 4 [...] as of this encounter (statuses as of 05/16/2024) Active Problems Problem Noted Date Diagnosed Date Pre-operative cardiovascular examination 024 HTN, goal below 130/80 05/16/2024 Long QT syndrome 05/16/2024 Fatty (change of) liver, not elsewhere classifie d 11/28/2023 Polyneuropathy, unspecified 11/28/2023 Incomplete RBBB 11/28/2023 S/P cholecystectomy 11/28/2023 Sicca syndrome 11/28/2023 PMB (postmenopausal bleeding) 07/15/2023 Encounter for gynecological examination with abnormal finding 07/15/2023 Post covid-19 condition, unspecified 06/27/2023 alf current use of systemic steroids 06/27 Food [...] as of this encounter (statuses as of 05/16/2024) Resolved Problems Problem Noted Date Diagnosed Date Resolved Date Cyst of right ovary 07/26/2023 11/28/19 24 Opioid use, unspecified, uncomplicated 05/02/2023 11/28/2023 Recurrent [...] as of this encounter (statuses as of 05/16/2024) Immunizations Name Administration Dates Next Due COVID-19 mRNA, LNP-s, No Pre serve, 2-Dose Series (Moderna) 02/09/2021,01/07/2021,01/07/2021 Hepatitis B, 20+ yrs 03/16/2024 Pneumococcal Conjugate Vacci ne, 20-valent ([id number]) 05/02/2023 TDAP (age 10 and older)(Boostrix) 05/01/2020 [...] on file documented as of this encounter Last Filed Vital Signs Vital Sign Reading Time Taken Comments Blood Pressure 122/70 05/16/2024 11:37 AM EDT Pulse 70 05/16/2024 11:37 AM EDT Temperature - - Respiratory Rate 18 05/16/2024 11:37 AM EDT Oxygen Saturation 97% 05/16/2024 11:37 AM EDT Inhaled Oxygen Concentration - - Weight 79.1 kg (174 lb 4.8 oz) 05/16/2024 11:37 AM EDT Height - - Body Mass Index 27.3 03/16/2024 8:10 AM EDT documented in this encounter Patient Instructions * Patient Instructions* Candy Dalal CRNP - 05/16/2024 12:15 PM EDT Continue Nadolol for now, and talk to your PCP about coming off it if BP sys <140 documented in this encounter Progress Notes * Candy Dalal CRNP - 05/16/2024 11:33 AM EDT Images from the original note were not included. Cardiology Outpatient Clinic Note 05/16/2024 CC: cardiac clearance for Right hip surgery with torn ligaments Candy Cruz is known to MAXIMO Tam, who is my colleague and he last saw her 02/13/24for chest pain and abnormal ECG. He noted a prolonged QT but she never had syncope and her family hx was negative for sudden . She was on many medications that could cause a prolonged QT, but since she had no hx of syncope, he did not change her regime. He noted her nuclear SPECT 01/2024 was neg ative if evidence of ME or ischemia. She told the anesthesiologist her BP can vary to high and low and went to the hospital for dizziness years ago and was negative for work up. Since her last OV, she was seen in the ED 05/05/24 for N/V/D and a possible partial small bowel obstruction or ileus. GI: Opioid induced slowed colonic transit and likely upper GI tract motility as well and discharged her on mag citrate, and added a suppository if not effective or enema or miralax and stool softener. She is moving her bowels now. Candy Cruz is a 49 year old female, with history of prolonged QT without symptoms in clinic today for pre operative evaluation prior to non cardiac surgery without complaints . I reviewed the cardiac testing and records in detail during today's office visit. She denies a history of a DVT/PE. She denies a history of a CVA, arrhythmias, completing a carotid ultrasound recently, or ever wearing a heart monitor at home. She denies any recent problems of shortness of breath, palpitations, chest pain/pressure/heaviness, or jaw pain and denies dizziness/lightheadedness, and denies syncope. Candy Cruz exercise tolerance seems good. Effort tolerance: Walks with cane and goes shopping sometime without symptoms. Her cardiac history/risk factors is significant for: (no) Previous ME (no) Previous CABG/PCI/Stents (no) Arrhythmias/ICD/PPM (no) Diabetes Mellitus (no) Hypertension (no) Dyslipidemia (+) Tobacco use trying to quit and using nicotine patch (no) Other vascular disease (no) Renal insufficiency (no) Family history of premature CAD (no)Sedentary Lifestyle (no) Stroke/TIA (+) Age greater than 50 years (no) History of compensated or prior heart failure Review of Systems Review of Systems Constitutional: Positive for fatigue. HENT: Negative. Eyes: Negative. Negative for discharge. Gastrointestinal: Negative. Negative for abdominal distention, abdominal pain, anal bleeding, bloodin stool, constipation, diarrhea, nausea, rectal pain and vomiting. Musculoskeletal: Negative for back pain and joint swelling. Neurological: Negative for tremors, numbness and headaches. Psychiatric/Behavioral: Negative. BP Readings from Last 4 Encounters: 05/16/24 122/70 03/16/24 130/82 03/02/24 135/87 02/23/24 120/80 . Wt Readings from Last 4 Encounters: 05/16/24 79.1 kg (174 lb 4.8 oz) 03/16/24 77.9 kg (171 lb 12.8 oz) 02/23/24 77.1 kg (170 lb) 02/13/24 78 kg (172 lb) Current Outpatient Medications Medication Sig Dispense Refill Blood Pressure KIT Check your blood pressure daily. 1 Kit 0 Ferrous Sulfate 325 (65 Fe) MG Oral Tablet (Feosol) Take 1 Tab by mouth 2 times a day with morning and evening meals. 60 Tab 3 Movantik 25 MG Oral Tablet (Naloxegol Oxalate) Take 1 Tablet by mouth. Methadone 50 mg/ml oral soln (ECH) Take 103 mg by mouth daily Fluticasone Propionate 50 MCG/ACT Nasal Suspension (Flonase) Administer 2 Sprays into each nostril in the morning. 18.2 mL 11 Pramipexole Dihydrochloride 0.25 MG Oral Tablet (Mirapex) TAKE 2 OR 3 TABLETS BY MOUTH NIGHTLY 1 HOUR BEFORE BEDTIME 180 Tablet 5 Omeprazole 40 MG Oral Capsule Delayed Release (PriLOSEC) Take 1 Capsule by mouth in the morning. 90Capsule 3 Naloxone HCl 4 MG/0.1ML Nasal Liquid (Narcan Nasal) Administer 0.1 mL into nostril as needed (sedation, respiratory suppresion). Administer 1 spray into 1 nostril for suspected opioid overdose. Seek immediate medical attention. [email or web address]://[email or web address]/[email or web address] 1 Each 3 methylPREDNISolone 4 MG Oral Tablet (Medrol) Take 1 Tablet by mouth in the morning. Transderm-Scop 1 MG/3DAYS Transdermal Patch [address] 1 Patch over 72 hours topically on the skin every 3 days. 4 hours before event. May replace every 3 days. . 24 Patch 1 Pilocarpine HCl 7.5 MG Oral Tablet TAKE 1 TABLET BY MOUTH THREE TIMES DAILY 90 Tablet 11 Amitriptyline HCl 150 MG Oral Tablet (Elavil) Take 1 Tablet by mouth at bedtime. 90 Tablet 3 Nadolol 20 MG Oral Tablet (Corgard) Take 1 Tablet by mouth in the morning. 30 Tablet 3 Mometasone Furoate 0.1 % External Cream Apply topically to affected area daily. Apply to skin 45 g 1 Chlorhexidine Gluconate 0.12 % Mouth/Throat Solution (Periogard) USE 15ML BY MOUTH TWO TIMES DAILY FOR 7 DAYS DIRECTED Mag-G 500 (27 Mg) MG Oral Tablet (Magnesium Gluconate) Take 500 mg by mouth. Benlysta 200 MG/ML Subcutaneous Solution Auto-injector (BelEnviance) Inject 1 mL (1 pen) under the skin once a week. 4 mL 11 Cyclobenzaprine HCl 10 MG Oral Tablet (Flexeril) TAKE 1 TABLET BY MOUTH THREE TIMES DAILY [id number] Tablet 2 Milk Thistle Seed Powder Use as directed. Vitamin C 125 MG Oral Tablet Chewable Take by mouth. Zinc 20 MG Oral Capsule Take by mouth. Lidocaine 5 % External Patch (Lidoderm) Place 1 Patch over 12 hours topically on the skin daily. 30Patch 2 Acyclovir 400 MG Oral Tablet (Zovirax) TAKE 1 TABLET BY MOUTH TWO TIMES DAILY 60 Tablet 3 Nicotine 14 MG/24HR Transdermal Patch 24 Hour (Nicoderm CQ) Place 1 Patch over 24 hours topically on the skin daily. 14 Patch 0 Mycophenolate Mofetil 250 MG Oral Capsule (Cellcept) Take 2 Capsules by mouth in the morning and 2 Capsules before bedtime 120 Capsule 11 DULoxetine HCl 60 MG Oral Capsule Delayed Release Particles (Cymbalta) Take 2 Capsules by mouth in the morning. 180 Capsule 1 No current facility-administered medications for this visit. Review of patient's allergies indicates: Allergen Reactions Ceftin [Cefuroxime] Wellbutrin [Bupropion] Past Medical History: Diagnosis Date Anxiety 1982 Depression GERD (gastroesophageal reflux disease) 2013 Hypertension 2022 On lisinopril Hypothyroidism 2013 INFORMATION 2021 Gluteus Medius tore- fell Lupus (systemic lupus erythematosus) (HCC) Tarsal tunnel syndrome Past Surgical History: Procedure Laterality Date CARPAL TUNNEL SURGERY 2016 Left wrist DENTAL SURGERY PROCEDURE NEC 1988 INFORMATION 2021 [place] - Rafie gluteus medius . 10/07/2022 INFORMATION 2021 Infection post surgery 2 weeks post op and had to do Iv infection and was C diff and UTI REMOVE GALLBLADDER 1997 Family History Problem Relation Name Age of Onset Arrhythmia Mother AFIB Diabetes Mother Heart failure Mother Depression Mother Anxiety Disorder Mother No Known Problems Father Mental Disorder Brother Bipolar Disorder Brother Alcohol and Other Disorders Associated Son Alcohol and Other Disorders Associated Aunt (Maternal) Heart failure Aunt (Maternal) Colon cancer Aunt (Maternal) Social History Tobacco Use Smoking status: Former Current packs/day: 0.00 Average packs/day: 0.3 packs/day for 10.0 years (2.5 ttl pk-yrs) Types: Cigarettes Start date: 03/18/2004 Quit date: 03/18/2014 Years since quittin.1 Smokeless tobacco: Never Vaping Use Vaping status: Never Used Substance Use Topics Alcohol use: Not Currently Drug use: No Labwork (reports reviewed by me) Latest Reference Range & Units 06/25/23 08:07 Triglycerides <=174 mg/dL 168 Cholesterol <200 mg/dL 215 (H) Non-HDL Cholesterol <=159 mg/dL 150 HDL Cholesterol >49 mg/dL 65 LDL Cholesterol <=129 mg/dL 116 (H): Data is abnormally high Latest Reference Range & Units 03/16/24 09:17 Sodium 135 - 146 mmol/L 136 Potassium 3.5 - 5.1 mmol/L 4.2 Chloride 98 - 107 mmol/L 99 CO2 22 - 32 mmol/L 27 BUN 6 - 20 mg/dL 6 Creatinine 0.5 - 1.0 mg/dL 0.7 Estimated Glomerular Filtration Rate >=60 mL/min >90 Anion Gap 7 - 15 mmol/L 10 Glucose 70 - 120 mg/dL 108 Calcium 8.4 - 10.2 mg/dL 9.9 ZINC 60 - 130 mcg/dL 57 (L) (L): Data is abnormally low Latest Reference Range & Units 03/16/24 09:17 CBC Rpt ! WBC 4.00 - 10.80 K/uL 12.48 (H) RBC 3.85 - 5.15 M/uL 4.22 HGB 12.0 - 15.3 g/dL 12.7 HCT 36.0 - 45.2 % 39.9 MCV 81.5 - 97.5 fL 94.5 MCH 27.0 - 34.0 pg 30.1 MCHC 32.0 - 36.0 g/dL 31.8 RDW 11.5 - 15.5 % 12.4 PLT 140 - 400 K/uL 649 (H) MPV 6.6 - 11.1 fL 8.6 !: Data is abnormal (H): Data is abnormally high Rpt: View report in Results Review for more information Data: ECG 03/16/24: TTE 08/14/20: US PELVIS TRANS-VAGINAL NON-OB Narrative: EXAM: US PELVIS TRANS-VAGINAL NON-OB - 05/16/2024 [...] ml Unremarkable MISCELLANEOUS: No significant free fluid. Impression: IMPRESSION: Probable adenomyosis. I have personally reviewed this examination and agree with the resident/fellow physician's interpretation. US PELVIS TRANS-VAGINAL NON-OB Result Date: 05/16/2024 IMPRESSION: Probable adenomyosis. I have personally reviewed this examination and agree with the resident/fellow physician's interpretation. MRI HIP RIGHT WO CONTRAST Result Date: 03/22/2024 IMPRESSION 1. High-grade likely near complete tear of the right gluteus medius tendon insertion. Severe fatty atrophy of the gluteus medius muscle. Likely partial tear of the right gluteus minimus tendon insertion. Mild fatty atrophy of the gluteus minimus muscle. 2. Moderate fluid superficial to the right greater trochanter, which may represent reactive changes in setting of tear versus bursitis. 3. High-grade partial tear of the left gluteus medius and minimus insertions, with fatty infiltration of the gluteus medius and minimus muscle. XR HIP UNILAT 2-3 VIEWS INCLUDING AP PELVIS Result Date: 03/17/2024 IMPRESSION 1. No acute RT hip osseous finding. Given the history, further assessment with MRI may be of benefit. US PELVIS TRANS-VAGINAL NON-OB Result Date: 03/16/2024 IMPRESSION: 1. Previous right ovarian cyst has resolved. 2. Marked adenomyosis. If postmenopausal, consider tissue sampling for possible neoplasm. Added to radiology results pathway communication system at 1:33 pm on 03/16/2024. XR HIP UNILAT 2-3 VIEWS INCLUDING AP PELVIS Result Date: 02/17/2024 IMPRESSION: No acute osseous findings. THIS DOCUMENT HAS BEEN ELECTRONICALLY SIGNED BY PAKO BERGERON, CT ABD/PELVIS W IV AND W ORAL CONTRAST Result Date: 01/09/2024 1. Fluid-filled small and large bowel loops with mild mucosal thickening compatible with nonspecific enterocolitis. 2. No bowel obstruction, ascites, nor free air. 3. Hypodense lesion within the lefthepatic lobe, follow-up MRI with and without contrast on a nonemergent outpatient basis. 4. Other findings as described above. Signed by: José Miguel Layton on 01/09/2024 1:03 PM XR FINGERS 2 OR MORE VIEWS Result Date: 11/28/2023 IMPRESSION 1. No acute osseous finding or radiopaque foreign body. Physical Exam: Today's vital signs: BP 122/70 | Pulse 70 | Resp 18 | Wt 79.1 kg (174 lb 4.8 oz) | SpO2 97% | BMI 27.30 kg/m | BSA 1.93 m Physical Exam Constitutional: Appearance: Normal appearance. HENT: Head: Normocephalic and atraumatic. Nose: Nose normal. Mouth/Throat: Mouth: Mucous membranes are moist. Eyes: Extraocular Movements: Extraocular movements intact. Conjunctiva/sclera: Conjunctivae normal. Cardiovascular: Rate and Rhythm: Regular rhythm. Pulses: Normal pulses. Heart sounds: Murmur (grade 1/6 down LSB) heard. No gallop. Comments: (-) JVD (-) carotid bruit (-) LE edema Pulmonary: Effort: Pulmonary effort is normal. Breath sounds: Normal breath sounds. No wheezing or rales. Abdominal: General: Abdomen is flat. Palpations: Abdomen is soft. Musculoskeletal: General: Normal range of motion. Cervical back: Normal range of motion and neck supple. Skin: General: Skin is warm and dry. Neurological: Mental Status: He is alert and oriented to person, place, and time. Psychiatric: Mood and Affect: Mood normal. Behavior: Behavior normal. Impression and Plan: 1. Pre-operative cardiovascular examination -Ms Cruz may proceed with her upcoming hip surgery at a low cardiac risk. RCRI risk calculator is 0 points and a 3.9% 30 day risk of , ME, or cardiac arrest. -Continue nebiolol if NPO you may use metoprolol IV 5mg q6 hr for a goal HR 60- 80 in the absence ofhypotension. -Telemetry in the perioperative period and postoperatively for 48 hours, or until hemodynamic and electrical stability is ensured. -ECG for chest pain or a change in clinical status. -Left ventricular systolic function and lack of valvular heart disease have been stable therefore allowing the surgeons to adequately volumize the patient with fluids as needed. 2. Long QT syndrome - no syncope history. stable 3. HTN, goal below 130/80 - Today's BP is acceptable on nebivolol - she is hoping to come off the Beta-chet since she quit drinking. I asked her to address this after her hip surgery and not to change anything now. Discussed when to go to the ED. If Candy Cruz has significant symptoms such as severe shortness of breath, diaphoresis, lightheadedness, chest pain, near syncope or syncope then someone should take Candy Cruz to the ED or Candy Cruz should call 911. Patient advised to call me if he/she does not hear back from me regarding any testing done/ordered.Explained I will always make contact with the patient once I receive the results but if they do notcome back to me, my safety net is the patient who should call me if they hear nothing within 1-2 weeks. I spent a total of 40-54 minutes (exact time 45 mins) on the date of service in preparation, delivery, and documentation of the care provided to Candy Cruz excluding any time spent in the performance of separately billed services. MAXIMO Mckeon documented in this encounter Plan of Treatment Upcoming Encounters Date Type Department Care Team (Late st Contact Info) Description 05/17/2024 9:30 AM EDT Office Visit Gynecology and Obstetrics, [place] [address] [place] [address] Eduardo Lopez DO [address] [place] [address] 06/21/2024 11:30 AM EDT Appointment Radiology, [facility] [address] [place] [address] 07/06/2024 2:15 PM EDT Office Visit Gynecology Urology, [place] [address] [place] [address] Shania Klein MD [address] [place], [place] [phone] Nurse Eden [employer] Operator [facility] [address] [facility] [place] [address] 08/22/2024 11:30 AM EDT Telemedicine Psychiatry [place] [address] [place] [phone] Mal Gonzalez [address] [place] [address] 08/27/2024 11:20 AM EDT Office Visit Rheumatology, [address] 1st Floor [place] [phone] Emily Merino MD [address] [place] [address] [place] [address] 09/10/2024 8:20 AM EST Office Visit Family Practice, [facility] [address] [place] [address] SharerMary MD [address] [place] [address] 12/04/2024 11:00 AM EST Office Visit Rheumatology, [address] 1[address] Floor [place] [phone] Emily Merino MD [address] [place] [address] [place] [address] Health Maintenance Due Date [...] as of this encounter Visit Diagnoses Diagnosis Pre-operative cardiovascular examination- Primary Long QT syndrome HTN, goal below 130/80 Unspecified essential hypertension documented in this encounter Care Teams Machine Design Teacher Relationship Specialty Start Date End Date Sharer, Mary Raymond MD [address] [place] [address] PCP - General Family Medicine 02/16/24 documented as of this encounter"
--- OUTSIDE RECORDS SUMMARY | 2024-06-07 14:38 | External Medical Summary | Summary of Care ---
Author Name Unknown Organization [facility] Address [address] [place] [place] [address] Phone [phone] Care Team Providers Care Logistics Associate Name Role Phone Sharer, Mary Raymond MD Primary Care Provider [phone] Reason for Visit * Reason Onset Date Comments Abnormal Test Results 05/14/2024 Lm about E R 05/14/24 x2 Encounter Details Date Type Department Care Team (Late st Contact Info) Description 05/14/2024 Telephone Family Practice, [facility] [address] [place] [address] Sharer, Mary Raymond MD [address] [place] [address] Abnormal Test Results (Lm about ER 05/14/24 x2) Allergies Active Allergy Reactions Criticality Noted Date Comments Cefuroxime 05/02/2023 Bupropion 05/02/2023 documented as of this encounter (statuses as of 05/15/2024) Medications Medication Sig Dispensed Refills Start Date [...] suspected opioid overdose. Seek immediate medical attention. [email or web address] 1 Each 3 4 Active methylPREDNISolone 4 [...] before bedtime 120 Capsule 11 4 Active methylPREDNISolone 4 MG Oral Tablet Therapy Pack (Medrol Dosepack)Indications :Systemic lupus erythematosus, unspecified SLE type, unspecified organ involvement status (HCC) follow package directions 21 Tablet 4 Active DULoxetine HCl 60 MG Oral Capsule Delayed Release Particles (Cymbalta)Indication s:Fibromyalgia Take 2 Capsules by mouth in the morning. 180 Capsule 3 4 05/13/20 24 Discontinu ed(Refill) documented as of this encounter (statuses as of 05/15/2024) Active Problems Problem Noted Date Diagnosed Date Fatty (change of) liver, not elsewhere classifie [...] as of this encounter (statuses as of 05/15/2024) Resolved Problems Problem Noted Date Diagnosed Date [...] as of this encounter (statuses as of 05/15/2024) Immunizations Name Administration Dates Next Due COVID-19 mRNA, LNP-s, No Pre serve, 2-Dose Series (Moderna) 02/09/2021,01/07/2021,01/07/2021 Hepatitis B, 20+ yrs 03/16/2024 Pneumococcal Conjugate Vacci ne, 20-valent ([id number]) 05/02/2023 TD - Tetanus/Diptheria (ADULT) 06/17/1999 TDAP [...] encounter Miscellaneous Notes * Telephone Encounter - Daphney Ames RN [...] again shortly * Telephone Encounter - Mary Lang MD - 05/14/2024 4:21 PM EDT I [...] in case PCP would like to discuss. [phone] * Telephone Encounter - Izabella Reese OSA - 05/14/2024 3:26 PM EDT Liz BARRY calling from [facility] Pre Admission testing to inform the provider of abnormal testing that was completed today. Transferred to nurse line documented in this encounter Plan of Treatment Upcoming Encounters Date Type Department Care Team (Late st Contact Info) Description 05/15/2024 2:45 PM EDT Imaging Radiology 2nd Floor, [facility] [address] [place] [address] 05/16/2024 8:30 AM EDT Appointment Radiology, [facility] [address] [place] [address] 05/17/2024 9:30 AM EDT Office Visit Gynecology and Obstetrics, [place] [address] [place] [address] Eduardo Lopez DO [address] [place] [address] 06/21/2024 11:30 AM EDT Appointment Radiology, [facility] [address] [place] [address] 07/06/2024 2:15 PM EDT Office Visit Gynecology Urology, [place] [address] [place] [address] Shania Klein MD [address] [place], [place] [phone] Nurse [facility] [employer] Attendant [facility] [address] [place] [address] 08/22/2024 11:30 AM EDT Telemedicine Psychiatry [facility] [place] [address] [place] [phone] Mal [place] [facility] [address] [facility] [id number] 08/27/2024 11:20 AM EDT Office Visit Rheumatology, [facility] [address] 1st Floor [place] [phone] Emily Merino MD [address] [place] [address] [place] [address] 09/10/2024 8:20 AM EST Office Visit Family Practice, [facility] [address] [place] [address] SharerMary MD [address] [place] [address] 09/21/2024 10:00 AM EST Immunization/Injection Ancillary, [facility] [address] [facility], [place] [phone] [place], Nurse [facility] [address] [facility], [place] [id number] 12/04/2024 11:00 AM EST Office Visit Rheumatology, [facility] [address] 1st Floor [place] [phone] MucEmily ochoa MD [address] [place] [phone] Health Maintenance Due Date Last Done Comments [...] filedocumented as of this encounter Care Teams Logistics Associate Relationship Specialty Start Date End Date Sharer, Mary Raymond MD [address] [place] [address] PCP - General Family Medicine 02/16/24 documented as of this encounter
--- OUTSIDE RECORDS SUMMARY | 2024-06-07 14:38 | External Medical Summary | Summary of Care ---
Author Name Unknown Organization [facility] Address [address] [facility] [address] Phone [phone] Care Team Providers Care Tube Bender Name Role Phone Sharer, Mary Raymond MD Primary Care Provider [phone] Reason for Visit * Reason Comments Culinary Artist Return Encounter Details Date Type Department Care Team (Late st Contact Info) Description 05/17/2024 9:30 AM EDT Office Visit [facility]st[facility], [place] [address] [facility] [address] Eduardo Lopez, [address] [place] [address] Cyst of right ovary*; Encounter for screening mammogram for malignant neoplasm of breast; PMB (postmenopausal bleeding) Allergies Active Allergy Reactions Criticality Noted Date [...] suspected opioid overdose. Seek immediate medical attention. 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 06/27 Food insecurity 06/15/2021 Overview: Per [facility] Protocol History of 2018 novel [...] yrs 03/16/2024 Pneumococcal Conjugate Vacci ne, 20-valent ([id number]) 05/02/2023 TDAP (age 10 and older)(Boostrix) 05/01/2020 [...] Sign Reading Time Taken Comments Blood Pressure 138/86 05/17/2024 9:30 AM EDT Pulse - - Temperature - - Respiratory Rate - - Oxygen Saturation - - Inhaled Oxygen Concentration - - Weight 79.2 kg (174 lb 9.6 oz) 05/17/2024 9:30 A M EDT Height - - Body Mass Index 27.35 03/16/2024 8:10 AM EDT documented in this encounter Progress Notes * Eduardo Lopez, DO - 05/17/2024 10:03 AM EDT Images from the original note were not included. SUBJECTIVE: Candy Cruz is a 49 year old female. Chief Complaint Patient presents with Culinary Artist Return HPI: 49 yowf grav 3 para 3003 - 3 - 1993, and 2001 . - Bladdre has dropped in the last 3 montsh - and urinates differently and unsure what is going . Lupus dx 2014. Fibromyalgia - dx 2017. Hashimotos was 2014. Had period in 01/2023 and then none until ER [facility] in 06/2023 . 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 Bled in 06/2023 and she bled for 4-5 days and was in ER the 3rd or 4th day . Did US - and said wait to see me . No bleed since . 02/29/2020 - EMB : Endometrium, biopsy: Early secretory endometrium. 08/28/2019: Pap : A. Cervical Thinlayer Prep: Specimen Adequacy: Satisfactory for evaluation; transformation zone present. FINAL INTERPRETATION: Negative for intraepithelial lesion or malignancy. OTHER NONNEOPLASTIC FINDINGS: Reactive cellular changes associated with inflammation. AUTOMATED REVIEW: Focal Point computerized screening device (quintile 1, review). OTHER FINDINGS: Endometrial cells present in a woman 45 years or older. NOTES: Endometrial cells after age 45, particularly out of phase or after menopause, may be associated with benign endometrium, hormonal alteration and less commonly, endometrial/uterine abnormalities. Clinical correlation is 06/15/2023 : pelvic Ultrasoudn : COMPARISON Pelvic ultrasound 09/12/2019 TECHNIQUE Transvaginal ultrasound of the pelvis was performed. FINDINGS UTERUS/CERVIX: The uterus is anteverted in position and normal in size, measuring 8.3 cm in length with AP and transverse dimensions of 4.0 and 4.2 cm. The myometrium is heterogenous with scattered subednoemtrial nodules and cysts suggestive of adenomyosis. There is no myometrial mass or fibroid identified. Prominent nabothian cyst is again noted measuring up to 2.1 cm. ENDOMETRIUM: The endometrium is normal in thickness, measuring up to mm. There is no fluid or discrete lesion in the endometrial canal and there is no abnormal flow on color Doppler. RIGHT OVARY/ADNEXA: There is a 3.7 cm hemorrhagic cystic structure in the right ovary containing low level internal echoes.. Ovarian size: 3.1 x 3.2 x 3.7 cm, 19 mL LEFT OVARY/ADNEXA: Normal in size without dominant solid or cystic mass. Ovarian size: 2.2 x 1.2 x 2.4 cm, mL Fluid: None. IMPRESSION IMPRESSION 1. Uterine adenomyosis. 2. Unchanged prominent nabothian cyst. 3. Hemorrhagic cyst versus endometrioma in the right ovary. Recommend follow-up ultrasound in 3 months. Specimen Collected: 06/15/23 10:50 Last Resulted: 06/15/23 10:47 Order Details View Encounter Lab and Collection Details Routing Result History 07/15/2023 EMB : Component Final Diagnosis A. Endometrium, biopsy: Secretory endometrium. 07/15/2023 FSH : 4.1 . 07/26/2023 After she saw me - the next day - bled bad and it was dripping blood . . Never got the CBC . In 06/15/ the g ER visit . 05/16/2024 Pelvic Ultrasound : EXAM: US PELVIS TRANS-VAGINAL NON-OB - 05/16/2024 [...] and agree with the resident/fellow physician's interpretation. Exam Ended: 05/16/24 07:35 Last Resulted: 05/16/24 09:59 05/17/2024 Occ cramps and down her legs . Feels like a period . Patient Active Problem List Diagnosis Anxiety state Lupus (systemic lupus erythematosus) (HCC) Hypothyroidism Menorrhagia with irregular cycle BI-RADS category 3 mammogram result DUB (dysfunctional uterine bleeding) Fibromyalgia Carpal tunnel syndrome Depression with anxiety History of 2019 novel coronavirus disease (COVID-19) Restless legs syndrome Unspecified fracture of left calcaneus, initial encounter for closed fracture Gastro-esophageal reflux disease without esophagitis Essential (primary) hypertension Food insecurity Post covid-19 condition, unspecified detention current use of systemic steroids PMB (postmenopausal bleeding) Encounter for gynecological examination with abnormal finding Fatty (change of) liver, not elsewhere classified Polyneuropathy, unspecified Incomplete RBBB S/P cholecystectomy Sicca syndrome (HCC) Pre-operative cardiovascular examination HTN, goal below 130/80 Long QT syndrome Current Outpatient Medications Medication Sig Dispense Refill [...] suspected opioid overdose. Seek immediate medical attention. https://[email or web address].com/[email or web address]?v=[email or web address] 1 Each 3 methylPREDNISolone 4 MG Oral [...] mouth. Benlysta 200 MG/ML Subcutaneous Solution Auto-injector (Belimumab) Inject 1 mL (1 pen) under the skin once a week. 4 mL 11 Cyclobenzaprine HCl 10 MG Oral Tablet (Flexeril) TAKE 1 TABLET BY MOUTH THREE TIMES DAILY [id number] Tablet 2 Milk Thistle Seed Powder Use [...] No current facility-administered medications for this visit. The patient's medication list was reviewed and updated as needed. Past Medical History: Diagnosis Date Anxiety 1982 Depression GERD (gastroesophageal reflux disease) 2013 Hypertension 2022 On lisinopril Hypothyroidism 2013 INFORMATION 2021 Gluteus Medius tore- fell Lupus (systemic lupus erythematosus) (HCC) Tarsal tunnel syndrome Past Surgical History: Procedure Laterality Date CARPAL TUNNEL SURGERY 2015 Left wrist DENTAL SURGERY PROCEDURE NEC 1988 INFORMATION 2021 [place] - [place] gluteus medius . 10/07/2022 INFORMATION 2021 Infection post surgery 2 weeks post op and had to do Iv infection and was C diff and UTI REMOVE GALLBLADDER 1997 Review of patient's allergies indicates: Allergen Reactions Ceftin [Cefuroxime] Wellbutrin [Bupropion] REVIEW OF SYSTEMS:General: No change in weight, No weakness, No fatigue, and No fevers, sweats, or chills Respiratory: No cough, sputum, or hemoptysis, No wheezing, No shortness of breath, and No recent change in breathing Cardiac: No chest pain, No shortness of breath, No dyspnea on exertion, No orthopnea, No paroxysmalnocturnal dyspnea, No edema, No palpitations, and No syncope Gastrointestinal: No dysphagia, No significant heartburn, No significant change in appetite, No nausea, vomiting, diarrhea, or constipation, No hematemesis, No blood in stools or black tarry stools, No abdominal bloating or early satiety, and No abdominal pain Urinary: No urinary frequency, No dysuria, No hematuria, No urinary urgency, No polyuria, No nocturia, No incontinence, No hesitancy, and No sensation of incomplete voiding Musculoskeletal: No joint pain or stiffness, No arthritis, No backache, No muscle pains or cramps, and No joint swelling Hematologic: No anemia, No easy bruising or abnormal bleeding, and No history of transfusion Neurologic: No fainting or blackouts, No seizures, No paralysis or focal weakness, No numbness or tingling, No tremors, and No significant problems with memory Skin: No edema, No rash, and No itching Extremities: No pain, redness or swelling on the joints Psychiatric: No depression, No anxiety, and No psychosis OBJECTIVE: BP 138/86 | Wt 79.2 kg (174 lb 9.6 oz) | BMI 27.35 kg/m | BSA 1.94 m PHYSICAL EXAM: General: alert, healthy, and no distress PLAN AND ASSESSMENT: Lupus 2015 Fibromyalgia 2018 Hashimotos - 2014 . Tore gluteum medis with surgery and another y surgery 2 weeks alter fdur to infection and IV antibiotics and then hasd C diff and UTI Right Ovarian cyst 3.7 cm - repeat in 3 months . DUB Endo lining is 6.6 mm . Do FSH . Need EMB and Do US in 3 months . Colonoscopy was 12/09 22 . Pap . Mammogram last month here . Sees urogyn in 12/2023 for a urogyn . EMB x 1 - lost of tissue - 8 cm 07/26/2023 : Get US in 3 months . See me after. Discussed labs . Get US in 10/29 asnd see me in . 05/17/2024 discussed US . Call if any bleed . RTO 1 year . CC visit to: PCP: MARY BOYKIN [address] [place] [address] Eduardo Lopez DO documented in this encounter Nursing Notes * Sabrina Silveira RN - 05/17/2024 9:29 AM EDT Pt presents with c/o lower abdominal and pelvic pain. Reports pain with intercourse - last intercourse 6-8 months ago. States that the pain extends down her legs and into her back. documented in this encounter Plan of Treatment Upcoming Encounters Date Type Department Care Team (Late st Contact Info) Description 06/21/2024 11:30 AM EDT Appointment Radiology, [facility] [address] [place] [address] 07/06/2024 2:15 PM EDT Office Visit Gynecology Urology, [place] [address] [place] [address] Shania Klein MD [address], [place] [phone] Nurse [place] [employer] [facility] [address] [place] [address] 08/22/2024 11:30 AM EDT Telemedicine Psychiatry [place] [address] [place] [address] Mal Gonzalez DO [address] [place] [address] 08/27/2024 11:20 AM EDT Office Visit [facility] [address] Floor [place] [phone] Emily Merino MD [address] [place] [address] [place] [address] 09/10/2024 8:20 AM EST Office Visit Family Practice, [facility] [address] [place] [address] SharerMary MD [address] [place] [address] 12/04/2024 11:00 AM EST Office Visit [facility] [address] Floor [place] [phone] Emily Merino MD [address] [place] [address] [place] [address] Scheduled Orders Name Type Priority Associated Diagnoses Orde r Schedule MAMMOGRAM SCREENING CONNER BILATERAL Medical Imaging Routine Encounter for screening mammogram for malignant neoplasm of breast Expected: 02/14/2025, Expires: 06/17/2025 Health Maintenance Due Date Last Done Comments Cologuard 2018 Fecal Occult Blood Test 2018 Sigmoidoscopy 2018 COVID-19 Vaccine (2022- season) 2023 02/09/2021, 01/07/2021, 01/07/2021 Hepatitis B [...] as of this encounter Visit Diagnoses Diagnosis Cyst of right ovary- Primary Other and unspecified ovarian cyst Encounter for screening mammogram for malignant neoplasm of breast Other screening mammogram PMB (postmenopausal bleeding) Postmenopausal bleeding documented in this encounter Care Teams Tube Bender Relationship Specialty Start Date End Date SharerMary MD [address] [place] [address] PCP - General Family Medicine 02/16/24 documented as of this encounter"
--- OUTSIDE RECORDS SUMMARY | 2024-06-07 14:38 | External Medical Summary | Summary of Care ---
Author Name Unknown Organization [facility] Address [address] [place] [address] Phone [phone] Care Team Providers Care Extension Worker Name Role Phone Sharer, Mary Raymond MD Primary Care Provider [phone] Reason for Visit * Reason Onset Date Comments Abnormal Test Results 05/14/2024 Lm about E R 05/14/24 x2 Encounter Details Date Type Department Care Team (Late st Contact Info) Description 05/14/2024 Telephone Family Practice, [facility] [address] [place] [address] Sharer, Mary Raymond MD [address] [place] [address] Abnormal Test Results (Lm about [...] suspected opioid overdose. Seek immediate medical attention. [email or web address] 1 Each 3 4 Active methylPREDNISolone 4 [...] finding 07/15/2023 Post covid-19 condition, unspecified 06/27/2023 [facility] current use of systemic steroids 06/27 Food insecurity 06/15/2021 Overview: Per [facility] Protocol History of 2019 novel [...] yrs 03/16/2024 Pneumococcal Conjugate Vacci ne, 20-valent ([id number]) 05/02/2023 TD - Tetanus/Diptheria (ADULT) 06/17/1999 TDAP [...] encounter Miscellaneous Notes * Telephone Encounter - Alma Carrasco OSA - 05/17/2024 9:40 AM EDT Please see previous messages - Liz states it doesn't look like the patient went to the ER but she did follow up testing with cardiology. Liz needs Dr. Lang to comment on low sodium prior to [...] in case PCP would like to discuss. [phone] * Telephone Encounter - Izabella Reese OSA - 05/14/2024 3:26 PM EDT Liz BARRY calling from [facility] testing to inform the provider of abnormal testing that was completed today. Transferred to nurse line documented in this encounter Plan of Treatment Upcoming Encounters Date Type Department Care Team (Late st Contact Info) Description 06/21/2024 11:30 AM EDT Appointment Radiology, [facility] [address] [place] [address] 07/06/2024 2:15 PM EDT Office Visit Gynecology Urology, [place] [address] [place] [address] Shania Klein MD [address] [place], [place] [phone] Nurse [place] [employer] [facility] [address] [place] [address] 08/22/2024 11:30 AM EDT Telemedicine Psychiatry [place] [address] [place] [phone] Mal Gonzalez DO [address] [facility] [place] [address] 08/27/2024 11:20 AM EDT [facility] [address] [place] [address] Dr 1[address] Floor [place] [phone] Emily Merino MD [address] [place] [address] [place] [address] 09/10/2024 8:20 AM EST Office Visit Family Practice, [facility] [address] [facility] [place] [address] SharerMary MD [address] [facility] [place] [address] 12/04/2024 11:00 AM EST Office Visit Rheumatology, [place] [facility] [address] Floor [place] [phone] MucciEmily schumacher MD [address] [facility] [place] [address] Health Maintenance Due Date Last Done Comments [...] filedocumented as of this encounter Care Teams Extension Worker Relationship Specialty Start Date End Date Sharer, Mary Raymond MD [address] [place] [phone] PCP - General Family Medicine 02/16/24 documented as of this encounter
--- OUTSIDE RECORDS SUMMARY | 2024-06-07 14:38 | External Medical Summary | Summary of Care ---
Author Name Unknown Organization [facility] Address [address] [facility] [place] [address] Care Team Providers Care Product Picker Name Role Phone Sharer, aMry Raymond MD Primary Care Provider [phone] Reason for Visit * Reason Onset Date Comments Medication Pre-auth 05/09/2024 Benlysta 200 MG/ML Encounter Details Date Type Department Care Team (Late st Contact Info) Description 05/09/2024 Telephone [facility] [address] [facility] [address] [place] [phone] MucEmily ochoa MD [address] [facility] [place] [address] Medication Pre-auth (Benlysta [...] suspected opioid overdose. Seek immediate medical attention. 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 (Household - for ages [...] encounter Miscellaneous Notes * Addendum Note - Ana Goode MED [...] file for patient. Submitted new PA through CM with clinicals * Telephone Encounter - Maxx Mansfield OSA - 05/09/2024 2:[address] [facility] called in to check the status of prior auth for Benlysta 200 MG/ML . Iscrolled through encounters and did not see where this had been started. Please advise documented in this encounter Plan of Treatment Upcoming Encounters Date Type Department Care Team (Late st Contact Info) Description 06/21/2024 11:30 AM EDT Appointment Radiology, [facility] [address] [place] [address] 07/06/2024 2:15 PM EDT Office Visit Gynecology Urology, [place] [address] [place] [address] Shania Klein MD [address] [place] [address] Nurse [place] [employer] [facility] [address] [place] [address] 08/22/2024 11:30 AM EDT Telemedicine Psychiatry [place] [address] [place] [phone] Mal Gonzalez DO [address] [place] [address] 08/27/2024 11:20 AM EDT [facility] [address] [place] [address] Dr [address] Floor [place] [phone] Emily Merino MD [address] [place] [address] [place] [address] 09/10/2024 8:20 AM EST Office Visit Family Practice, [facility] [address] [place] [address] SharerMary MD [address] [place] [address] 12/04/2024 11:00 AM EST Office Visit Rheumatology, [place] [facility] [address] [place] [address] Dr 1[address] Floor [place] [phone] Emily Merino MD [address] [place] [address] [place] [address] Health Maintenance Due Date [...] Depression Monitoring 03/12/2025 03/12/2024 GFR 03/16/2025 03/16/2024, 04/06/2024, 02/16/2024, Additional history exists Albumin/Creatinine Ratio 06/25/2026 [...] (HCC) documented in this encounter Care Teams Product Picker Relationship Specialty Start Date End Date Sharer, Mary Raymond MD [address] [place] [address] PCP - General Family Medicine 02/16/24 documented as of this encounter
--- OUTSIDE RECORDS SUMMARY | 2024-06-07 14:38 | External Medical Summary | Summary of Care ---
Author Name Unknown Organization [facility] Address [address] [place] [address] Phone [phone] Care Team Providers Care Through Operator Name Role Phone Sharer, Mary Raymond MD Primary Care Provider [phone] Reason for Visit * Reason Onset Date Comments Review Tests 02/15/2024 LM-02/15/24 Abnormal Test Results 02/15/2024 Transferre d to dedicated nurse line Encounter Details Date Type Department Care Team (Late st Contact Info) Description 02/15/2024 Telephone [facility], [facility] [address] [place] [address] Emma Kulkarni, DO [address] [place] [address] Review Tests (LM-02/15/24); Abnormal Test R... Allergies Active Allergy Reactions Criticality Noted Date [...] nostril in the morning. 18.2 mL 11 07/27/20 23 Active Pramipexole Dihydrochloride 0.25 MG Oral Tablet (Mirapex)Indication s:Restless legs syndrome TAKE 2 OR 3 TABLETS BY MOUTH NIGHTLY 1 HOUR BEFORE BEDTIME 180 Tablet 5 01/04/20 24 Active Omeprazole 40 MG Oral Capsule Delayed Release (PriLOSEC)Indicatio ns:Gastro-esophagea l reflux disease without esophagitis Take 1 Capsule by mouth in the morning. 90 Capsule 3 01/04/20 24 Active Naloxone HCl 4 MG/0.1ML Nasal Liquid (Narcan Nasal)Indications:H igh risk medication use Administer 0.1 mL into nostril as needed (sedation, respiratory suppresion). Administer 1 spray into 1 nostril for suspected opioid overdose. Seek immediate medical attention. [email or web address]? [email or web address] 1 Each 3 01/04/20 24 Active methylPREDNISolone 4 MG Oral Tablet (Medrol) Take 1 Tablet by mouth in the morning. 01/20/20 24 Active Transderm-Scop 1 MG/3DAYS Transdermal Patch 72 HourIndications:[facility] 1 Patch over 72 hours topically on the skin every 3 days. 4 hours before event. May replace every 3 days. . 24 Patch 1 01/20/20 24 Active Pilocarpine HCl 7.5 MG Oral Tablet TAKE 1 TABLET BY MOUTH THREE TIMES DAILY 90 Tablet 11 02/07/20 24 Active Amitriptyline HCl 150 MG [...] skin once a week. 4 mL 11 03/11/20 23 024 Discontinued(Re fill) Mometasone Furoate 0.1 % External Cream Apply topically to affected area daily. Apply to scalp 024 Discontinued(Re fill) Lisinopril 20 MG Oral Tablet (Prinivil)Indicatio ns:Essential (primary) hypertension Take 1 Tablet by mouth in the morning. 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 30 Patch 2 01/20/20 24 024 Discontinued(Me dication/Dose Changed) documented as of this encounter (statuses as of 05/16/2024) Active Problems Problem Noted Date Diagnosed Date Pre-operative cardiovascular examination HTN, goal below 130/80 05/16/2024 Long QT syndrome 05/16/2024 Fatty (change of) liver, not elsewhere classifie d 11/28/2023 Polyneuropathy, unspecified 11/28/2023 Incomplete RBBB 11/28/2023 S/P cholecystectomy 11/28/2023 Sicca syndrome 11/28/2023 PMB (postmenopausal bleeding) 07/15/2023 Encounter for gynecological examination with abnormal finding 07/15/2023 Post covid-19 condition, unspecified 06/27/2023 care home current use of systemic steroids 06/27 Food insecurity 06/15/2021 Overview: Per [facility] Protocol History of 2018 novel [...] (Moderna) 02/09/2021,01/07/2021,01/07/2021 Pneumococcal Conjugate Vacci ne, 20-valent ([id number]) 05/02/2023 TDAP (age 10 and older)(Boostrix) 05/01/2020 [...] No 01/19/2024 Does the household have a [facility] source of income? (Household - for ages [...] encounter Miscellaneous Notes * Telephone Encounter - Yoana Cohen LPN - 02/18/2024 11:14 AM EDT No answer. Left message. Placing results on MyG. As well as letter. * Telephone Encounter - Analy Ross OSA - 02/17/2024 8:58 AM EDT Patient returning call for test results. Tried to transfer to dedicated nurse line for further assistance, no response. Please assist. * Telephone Encounter - Yoana Cohen LPN - 02/15/2024 9:11 AM EDT Left message for patient to call office for lab results below. ----- Message from Emma Kulkarni DO sent at 02/14/2024 6:41 AM EDT ----- Please let patient know we have reviewed her labs. Her testing for Lyme disease is negative. Her B12 is normal. Her serum proteins would chart immunoglobulins which active immunity are mildly abnormal. This is something she needs to establish care with a bait digger for to follow. It is of undetermined significance at this time but needs to be followed up. Your vitamin-D level is also mildly low. Would recommend she take vitamin D3 or cholecalciferol 1000- 2000 units daily. This can be purchased [id number] at the pharmacy or grocery store documented in this encounter Plan of Treatment Upcoming Encounters Date Type Department Care Team (Late st Contact Info) Description 05/17/2024 9:30 AM EDT Office Visit Gynecology and Obstetrics, [place] [address] [place] [address] Eduardo Lopez DO [address] [place] [address] 06/21/2024 11:30 AM EDT Appointment Radiology, [facility] [address] [place] [address] 07/06/2024 2:15 PM EDT Office Visit Gynecology Urology, [place] [address] [place] [address] Shania Klein MD [address] [facility] [place] [address] Nurse [place] Vending Route Driver [facility] [address] [place] [address] 08/22/2024 11:30 AM EDT Telemedicine Psychiatry Bonnie [place] [address] [place] [address] WallyMal clay, DO [address] [place] [address] 08/27/2024 11:20 AM EDT Office Visit Rheumatology, [address] 1st Floor [place] [phone] Emily Merino MD [address] [place] [address] [place] [address] 09/10/2024 8:20 AM EST Office Visit Family Practice, [facility] [address] [place] [address] SharerMary MD [address] [place] [address] 12/04/2024 11:00 AM EST Office Visit Rheumatology, [address] 1st Floor [place] [phone] Emily Merino MD [address] [place] [address] [place] [address] Health Maintenance Due Date Last Done Comments [...] filedocumented as of this encounter Care Teams Through Operator Relationship Specialty Start Date End Date Sharer, Mary Raymond MD [address] [place] [address] PCP - General Family Medicine 02/16/24 documented as of this encounter
--- OUTSIDE RECORDS SUMMARY | 2024-06-07 14:38 | External Medical Summary | Summary of Care ---
Author Name Unknown Organization [facility] Address [address] [facility] [place] [address] Care Team Providers Care Operations Research Manager Name Role Phone Sharer, Mary Raymond MD Primary Care Provider [phone] Reason for Visit * Reason Onset Date Comments Medication Pre-auth 05/09/2024 Benlysta 200 MG/ML Encounter Details Date Type Department Care Team (Late st Contact Info) Description 05/09/2024 Telephone [facility] [facility] [address] [facility] [facility] [address] 1st Floor [place] [phone] MucEmily ochoa MD [address] [facility] [place] [address] Medication Pre-auth (Benlysta 200 [...] suspected opioid overdose. Seek immediate medical attention. [email or web address]://[email or web address]/[email or web address]?v= [email or web address] 1 Each 3 4 Active methylPREDNISolone 4 [...] steroids 06/27 Food insecurity 06/15/2021 Overview: Per [facility] Protocol History of 2019 novel [...] yrs 03/16/2024 Pneumococcal Conjugate Vacci ne, 20-valent ([id number]) 05/02/2023 TD - Tetanus/Diptheria (ADULT) 06/17/1999 TDAP [...] No 01/19/2024 Does the household have a [facility] source of income? (Household - for ages [...] encounter Miscellaneous Notes * Telephone Encounter - Jaclyn Vega MED ASSIST - 05/16/2024 3:16 PM EDT I was not able to find any previous auths on file for patient. Submitted new PA through CM with clinicals * Telephone Encounter - Maxx Mansfield OSA - 05/09/2024 2:11 PM EDT [facility] called in to check the status of prior auth for Benlysta 200 MG/ML . Iscrolled through encounters and did not see where this had been started. Please advise documented in this encounter Plan of Treatment Upcoming Encounters Date Type Department Care Team (Late st Contact Info) Description 05/17/2024 9:30 AM EDT Office Visit Gynecology and Obstetrics, [place] [address] [place] [address] Eduardo Lopez, [address] [place] [address] 06/21/2024 11:30 AM EDT Appointment Radiology, [facility] [address] [place] [address] 07/06/2024 2:15 PM EDT Office Visit Gynecology Urology, [place] [address] [place] [address] Shania Klein MD [address] [place] [address] Eden Nurse Senior Cost Accountant [facility] [address] [place] [address] 08/22/2024 11:30 AM EDT Telemedicine Psychiatry [facility] 9 [place] [phone] Mal Gonzalez, [address] [place] [address] 08/27/2024 11:20 AM EDT Office Visit Rheumatology, [address] 1st Floor [place] [phone] Emily Merino MD [address] [place] [address] [place] [id number] 09/10/2024 8:20 AM EST Office Visit Family Practice, [facility] [address] [place] [address] SharerMayr MD [address] [facility] [place] [address] 12/04/2024 11:00 AM EST Office Visit Rheumatology, [address] 1st Floor [place] [phone] Emily Merino MD [address] [place] [address] [place] [phone] Health Maintenance Due Date Last Done Comments Cologuard 2018 Fecal Occult Blood Test 2018 Sigmoidoscopy 2018 COVID-19 Vaccine (4 - 2022-24 season) 2023 02/09/2021, 01/07/2021, 01/07/2021 Hepatitis B [...] filedocumented as of this encounter Care Teams Operations Research Manager Relationship Specialty Start Date End Date Sharer, Mary Raymond MD [address] [place] [address] PCP - General Family Medicine 02/16/24 documented as of this encounter
--- OUTSIDE RECORDS SUMMARY | 2024-06-07 14:38 | External Medical Summary | Summary of Care ---
Author Name Unknown Organization [facility] Address [address] [place] [address] Phone [phone] Care Team Providers Care Press Washer Name Role Phone Sharer, Mary Raymond MD Primary Care Provider [phone] Reason for Visit * Reason Onset Date Comments Medication Refill 05/13/2024 Encounter Details Date Type Department Care Team (Late st Contact Info) Description 05/13/2024 Refill Family Practice, [facility] [address] [place] [address] Emma Kulkarni, DO [address] [place], [place] [phone] Fibromyalgia Allergies Active Allergy Reactions Criticality Noted Date [...] suspected opioid overdose. Seek immediate medical attention. [email or web address]://[email or web address]?v= [email or web address] 1 Each 3 4 Active methylPREDNISolone 4 [...] the morning. 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 06/27 Food [...] yrs 03/16/2024 Pneumococcal Conjugate Vacci ne, 20-valent ([id number]) 05/02/2023 TDAP (age 10 and older)(Boostrix) 05/01/2020 [...] encounter Miscellaneous Notes * Telephone Encounter - Janeth Champion RPh - 05/15/2024 8:56 AM EDTSigned Prescriptions: Disp Refills DULoxetine HCl 60 MG Oral Capsule Delayed *180 Ca*1 Sig: Take 2 Capsules by mouth in the morning.Authorizing Provider: MARY BOYKIN User: JANETH CHAMPION documented in this encounter Plan of Treatment Upcoming Encounters Date Type Department Care Team (Late st Contact Info) Description 05/15/2024 2:45 PM EDT Imaging Radiology 2nd Floor, [facility] [address] [place] [address] 05/16/2024 8:30 AM EDT Appointment Radiology, [facility] [address] [place] [address] 05/17/2024 9:30 AM EDT Office Visit Gynecology and Obstetrics, [place] [address] [place] [address] Eduardo Lopez, DO [address] [place] [address] 06/21/2024 11:30 AM EDT Appointment Radiology, [facility] [address] [place] [address] 07/06/2024 2:15 PM EDT Office Visit Gynecology Urology, [place] [address] [place] [address] Shania Klein MD [address] [place] [address] Nurse Eden Zipper Joiner [facility] [address] [place] [address] 08/22/2024 11:30 AM EDT Telemedicine Psychiatry [place] [address] [place] [phone] Mal Gonzalez, [address] [place] [address] 08/27/2024 11:20 AM EDT Office Visit Rheumatology, [address] 1st Floor [place] [phone] Emily Merino MD [address] [facility] [place] [address] 09/10/2024 8:20 AM EST Office Visit Family Practice, [facility] [address] [place] [address] SharerMary MD [address] [place] [address] 09/21/2024 10:00 AM EST Immunization/Injection Ancillary, [facility] [address] [place] [address] Nurse Eden Fam Prac [address] [place] [address] 12/04/2024 11:00 AM EST Office Visit Rheumatology, [place] [address] [facility] [address] 1st Floor [place] [phone] Emily Merino MD [address] [place] [address] [place] [address] Health Maintenance Due Date [...] as of this encounter Visit Diagnoses Diagnosis Fibromyalgia Mylagia and myositis, unspecified documented in this encounter Care Teams Press Washer Relationship Specialty Start Date End Date Sharer, Mary Raymond MD [address] [place] [phone] PCP - General Family Medicine 02/16/24 documented as of this encounter
--- OUTSIDE RECORDS SUMMARY | 2024-06-07 14:39 | External Medical Summary | Summary of Care ---
Author Name Unknown Organization [facility] Address [address] [facility] [place] [address] Phone [phone] Care Team Providers Care Supervisor Commercial [employer] Hatcher[employer] Name Role Phone Sharer, Mary Raymond MD Primary Care Provider [phone] Reason for Visit * Reason Onset Date Comments Abnormal Test Results 05/14/2024 Lm about E R 05/14/24 Encounter Details Date Type Department Care Team (Late st Contact Info) Description 05/14/2024 Telephone [facility], [facility] [address] [place] [address] Sharer, Mary Raymond MD [address] [place] [address] Abnormal Test Results (Lm about ER 05/14/24 ) Allergies Active Allergy Reactions Criticality Noted Date Comments Cefuroxime 05/02/2023 Bupropion 05/02/2023 documented as of this encounter (statuses as of 05/14/2024) Medications Medication Sig Dispensed Refills Start Date [...] the morning. 18.2 mL 11 07/27/2023 Active DULoxetine HCl 60 MG Oral Capsule Delayed Release Particles (Cymbalta)Indications :Fibromyalgia Take 2 Capsules by mouth in the morning. 180 Capsule 3 12/15/2023 Active Pramipexole Dihydrochloride 0.25 MG Oral Tablet [...] suspected opioid overdose. Seek immediate medical attention. [email or web address]?v= [email or web address] 1 Each 3 01/04/2024 Active methylPREDNISolone 4 [...] before bedtime 120 Capsule 11 04/12/2024 Active methylPREDNISolone 4 MG Oral Tablet Therapy Pack (Medrol Dosepack)Indications: Systemic lupus erythematosus, unspecified SLE type, unspecified organ involvement status (HCC) follow package directions 21 Tablet 04/12/2024 Active documented as of this encounter (statuses as of 05/14/2024) Active Problems Problem Noted Date Diagnosed Date Fatty (change of) liver, not elsewhere classifie d 11/28/2023 Polyneuropathy, unspecified 11/28/2023 Incomplete RBBB 11/28/2023 S/P cholecystectomy 11/28/2023 Sicca syndrome 11/28/2023 PMB (postmenopausal bleeding) 07/15/2023 Encounter for gynecological examination with abnormal finding 07/15/2023 Post covid-19 condition, unspecified 06/27/2023 [facility] current use of systemic steroids 06/27 Food insecurity 06/15/2021 Overview: Per [facility] Protocol History of 2018 novel [...] as of this encounter (statuses as of 05/14/2024) Resolved Problems Problem Noted Date Diagnosed Date [...] as of this encounter (statuses as of 05/14/2024) Immunizations Name Administration Dates Next Due COVID-19 mRNA, LNP-s, No Pre serve, 2-Dose Series (Moderna) 02/09/2021,01/07/2021,01/07/2021 Hepatitis B, 20+ yrs 03/16/2024 Pneumococcal Conjugate Vacci ne, 20-valent ([id number]) 05/02/2023 TDAP (age 10 and older)(Boostrix) 05/01/2020 [...] encounter Miscellaneous Notes * Telephone Encounter - Chio Bernard LPN [...] in case PCP would like to discuss. [phone] * Telephone Encounter - Izabella Reese OSA - 05/14/2024 3:26 PM EDT Liz JHONNY calling from [facility] Pre Admission testing to inform the provider of abnormal testing that was completed today. Transferred to nurse line documented in this encounter Plan of Treatment Upcoming Encounters Date Type Department Care Team (Late st Contact Info) Description 05/15/2024 2:45 PM EDT Imaging Radiology 2nd Floor, [place] [address] [place] [address] 05/16/2024 8:30 AM EDT Appointment Radiology, [address] [place] [address] 05/17/2024 9:30 AM EDT Office Visit Gynecology and Obstetrics, [address] [place] [address] Eduardo Lopez, [address] [place] [address] 06/21/2024 11:30 AM EDT Appointment Radiology, [facility] [address] [facility] 220 [place] [address] 07/06/2024 2:15 PM EDT Office Visit Gynecology Urology, [address] [place] [address] Shania Klein MD [address] [facility] [address] [address] Eden L[address] Nurse [facility] [address] [facility] [place] [address] 08/22/2024 11:30 AM EDT Telemedicine Psychiatry [place], [place] [address] [place] [phone] Carlos Kathyap, DO [address] [facility] [address] [place], [place] [address] 08/27/2024 11:20 AM EDT Office Visit Rheumatology, [place] 1st Floor [place] [phone] Emily Merino MD [address] [place] [address] [place] [address] 09/10/2024 8:20 AM EST Office Visit Family Practice, [facility] [address] [place] [address] SharerMary MD [address] [facility] [address] 09/21/2024 10:00 AM EST Immunization/Injection Ancillary, [facility] [address] [facility] [address] Nurse [place] Fam Prac [address] [facility] [address] 12/04/2024 11:00 AM EST Office Visit Rheumatology, [place] [address] 1st Floor [place] [phone] Emily Merino MD [address] [place] [address] [place] [address] Health Maintenance Due Date [...] filedocumented as of this encounter Care Teams Supervisor Commercial Fish Hatchery Relationship Specialty Start Date End Date Sharer, Mary Raymond MD [address] [place] [phone] PCP - General Family Medicine 02/16/24 documented as of this encounter
--- OUTSIDE RECORDS SUMMARY | 2024-06-07 14:39 | External Medical Summary | Summary of Care ---
Author Name Unknown Organization [facility] Address [address] [place] [place] [place] [place] [address] Phone [phone] Care Team Providers Care Medical Supervisor Name Role Phone Sharer, Mary Raymond MD Primary Care Provider [phone] Reason for Visit * Reason Onset Date Comments Abnormal Test Results 05/14/2024 Lm about E R 05/14/24 x2 Encounter Details Date Type Department Care Team (Late st Contact Info) Description 05/14/2024 Telephone Family Practice, [facility] [address] [place] [address] Sharer, Mary Raymond MD [address] [place] [address] Abnormal Test Results (Lm about [...] suspected opioid overdose. Seek immediate medical attention. [email or web address] [email or web address]?v= [email or web address] 1 Each 3 01/04/2024 Active methylPREDNISolone 4 [...] finding 07/15/2023 Post covid-19 condition, unspecified 06/27/2023 penitentiary current use of systemic steroids 06/27 Food insecurity 06/15/2021 Overview: Per [facility] Protocol History of 2019 novel [...] yrs 03/16/2024 Pneumococcal Conjugate Vacci ne, 20-valent ([id number]) 05/02/2023 TD - Tetanus/Diptheria (ADULT) 06/17/1999 TDAP [...] in case PCP would like to discuss. [phone] * Telephone Encounter - Izabella Reese OSA - 05/14/2024 3:26 PM EDT Liz BARRY calling from [facility] Pre Admission testing to inform the provider of abnormal testing that was completed today. Transferred to nurse line documented in this encounter Plan of Treatment Upcoming Encounters Date Type Department Care Team (Late st Contact Info) Description 05/15/2024 2:45 PM EDT Imaging Radiology 2nd Floor, [facility] [address] [place] [address] 05/16/2024 8:30 AM EDT Appointment Radiology, [facility] [address] [place] [address] 05/17/2024 9:30 AM EDT Office Visit Gynecology and Obstetrics, [place] 255 [facility] 220 [place] [address] Eduardo Lopez, [address] [facility] [place] [address] 06/21/2024 11:30 AM EDT Appointment Radiology, [facility] [address] [place] [address] 07/06/2024 2:15 PM EDT Office Visit Gynecology Urology, [place] [address] [place] [address] Shania Klein MD [address] [place] [address] Nurse Eden Piling Setter Uro [address] [place] [address] 08/22/2024 11:30 AM EDT Telemedicine Psychiatry [place] [address] [place] [phone] Mal Gonzalez DO [address] [place] [facility] [place] [address] 08/27/2024 11:20 AM EDT Office Visit Rheumatology, [place] 1st Floor [place] [phone] Emily Merino MD [address] [place] [address] [place] [address] 09/10/2024 8:20 AM EST Office Visit Family Practice, [facility] [address] [place] [address] SharerMary MD [address] [place] [address] 09/21/2024 10:00 AM EST Immunization/Injection Ancillary, [facility] [address] [facility] [place] [address] Nurse [place] Fam Prac [address] [facility] [address] 12/04/2024 11:00 AM EST Office Visit Rheumatology [address] 1st Floor [place] [phone] Emily Merino MD [address] [place] [address] Dr [place], [place] [address] Health Maintenance Due Date Last Done Comments Cologuard 2018 Fecal Occult Blood Test 2018 Sigmoidoscopy 2018 COVID-19 Vaccine (4 - 2022-24 season) 2023 02/09/2021, 01/07/2021, 01/07/2021 Hepatitis B Vaccine (2 of 3 - 19+ 3-dose series) 04/13/2024 03/16/2024 Zoster Vaccines (2 of 2) 05/11/2024 03/16/2024 Mammogram 06/21/2024 06/21/2023, 03/11/2020, 02/13/2020, Additional history exists Influenza Vaccine (FLU [...] filedocumented as of this encounter Care Teams Medical Supervisor Relationship Specialty Start Date End Date Sharer, Mary Raymond MD [address] [place] [address] PCP - General Family Medicine 02/16/24 documented as of this encounter
--- OUTSIDE RECORDS SUMMARY | 2024-06-07 14:39 | External Medical Summary | Summary of Care ---
Author Name Unknown Organization [facility] Address [address] [place] [facility] [place] [address] Phone [phone] Care Team Providers Care Private Branch Exchange Installer Name Role Phone Sharer, Mary Raymond MD Primary Care Provider [phone] Reason for Visit * Reason Onset Date Comments Abnormal Test Results 05/14/2024 Lm about E R 05/14/24 x2 Encounter Details Date Type Department Care Team (Late st Contact Info) Description 05/14/2024 Telephone Family Practice, [facility] [address] [place] [address] Sharer, Mary Rayomnd MD [address] [place] [address] Abnormal Test Results (Lm about [...] suspected opioid overdose. Seek immediate medical attention. [email or web address] Each 3 01/04/2024 Active methylPREDNISolone 4 [...] finding 07/15/2023 Post covid-19 condition, unspecified 06/27/2023 [facility] current use of systemic steroids 06/27 Food insecurity 06/15/2021 Overview: Per [facility] Protocol History of 2019 novel [...] yrs 03/16/2024 Pneumococcal Conjugate Vacci ne, 20-valent ([id number]) 05/02/2023 TD - Tetanus/Diptheria (ADULT) 06/17/1999 TDAP [...] encounter Miscellaneous Notes * Telephone Encounter - Florentino Capellan CRNP [...] in case PCP would like to discuss. [phone] * Telephone Encounter - Izabella Reese OSA - 05/14/2024 3:26 PM EDT Liz BARRY calling from [facility] Pre Admission testing to inform the provider of abnormal testing that was completed today. Transferred to nurse line documented in this encounter Plan of Treatment Upcoming Encounters Date Type Department Care Team (Late st Contact Info) Description 05/15/2024 2:45 PM EDT Imaging Radiology 2nd Floor, [facility] [address] [place] [address] 05/16/2024 8:30 AM EDT Appointment Radiology, [facility] [address] [place] [address] 05/17/2024 9:30 AM EDT Office Visit Gynecology and Obstetrics, [place] [address] [place] [address] Eduardo Lopez DO [address] [facility] [place] [address] 06/21/2024 11:30 AM EDT Appointment Radiology, [facility] [address] [place] [address] 07/06/2024 2:15 PM EDT Office Visit Gynecology Urology, [place] [address] [place] [address] Shania Klein MD [address] [place] [address] Nurse [facility] Up Person [facility] [address] [facility] [place] [address] 08/22/2024 11:30 AM EDT Telemedicine Psychiatry [place] [address] [place] [id number] Mal Gonzalez DO [address] [place] [address] 08/27/2024 11:20 AM EDT Office Visit Rheumatology, [address] 1st Floor [place] [phone] MucEmily ochoa MD [address] [place] [address] [place] [address] 09/10/2024 8:20 AM EST Office Visit Family Practice, [facility] [address] [facility] [place] [address] SharerMary MD [address] [facility] [place] [address] 09/21/2024 10:00 AM EST Immunization/Injection Ancillary, [facility] [address] [facility] [address] [place], Nurse [facility] [address] [facility] [address] 12/04/2024 11:00 AM EST Office Visit Rhe[facility]ology[facility] [address] [place] [address] Dr 1st Floor [place] [phone] Emily Merino MD [address] [place] [address] [place] [address] Health Maintenance Due Date [...] filedocumented as of this encounter Care Teams Private Branch Exchange Installer Relationship Specialty Start Date End Date Sharer, Mary Raymond MD [address] [place] [address] PCP - General Family Medicine 02/16/24 documented as of this encounter
[2024-06-07] MEDS: fentaNYL citrate PF 100 MCG/2 ML VIAL IV PRN (14:43)
--- NOTE | 2024-06-07 14:48 | Post Operative Brief Note ---
PG Immediate Post Op with CF Date of Surgery June 07, 2024 Pre & Post Diagnosis Operation Date: 06/07/24 11:05 Pre-Op Diagnosis: Tear of Gluteus Medius Tendon, Tendinopathy Left Gluteal Region Post-Op Diagnosis: Tear of Gluteus Medius Tendon, Tendinopathy Left Gluteal Region I identified the patient and participated in the time-out.: Yes Procedure Operation Date: 06/07/24 11:05 Actual Procedures p Right Hip Endoscopy, Open Gluteal Tendon Revision Repair with Gluteus Giles Transfer (Right) - Manjit Gold MD Surgeon Manjit Gold MD [employer] Miri Holloway PA-C Estimated Blood Loss 50 Findings Consistent with Post-Op Diagnosis
[2024-06-07] MEDS: HYDROmorphone INJ 1 MG/ML SYRINGE IV PRN (14:50)
[2024-06-07] MEDS ORDERED: bisacodyL 5 MG TABEC PO PRN (14:50)
[2024-06-07] MEDS ORDERED: SCOPOLAMINE 1 MG/72 HR TDSY PATCH TD PRN (14:50)
[2024-06-07] MEDS ORDERED: MOMETASONE 0.1% TOP SCH (15:00)
--- NOTE | 2024-06-07 15:10 | Anesthesiology Progress Note ---
Date of Service June 07, 2024 Anesthesia Post Procedure Vital Signs Vital Signs: Temp Pulse Resp BP Pulse Ox O2 Del Method O2 Flow Rate 06/07/24 15:00 60 22 134/87 96 Room Air 0 06/07/24 14:50 58 L 13 151/81 H 96 Room Air 0 06/07/24 14:35 77 17 148/89 H 96 Room Air 0 06/07/24 14:25 60 14 153/88 H 95 Room Air 0 06/07/24 14:15 63 20 136/93 96 Room Air 0 06/07/24 14:05 73 12 145/89 H 98 Room Air 0 06/07/24 13:57 97.3 F L 61 16 161/92 H 97 Oxymask 4 06/07/24 10:00 97.7 F 71 17 122/84 97 Room Air Pain Intensity Right Hip: Pain Intensity: 4 Transfer of Care Handoff Completed per policy Notes Mental Status: alert / awake / arousable and participated in evaluation Patient Amnestic to Procedure: Yes Nausea / Vomiting: adequately controlled Pain: adequately controlled Airway Patency, RR, SpO2: stable & adequate BP & HR: stable & adequate Hydration State: stable & adequate Anesthetic Complications: no major complications apparent and Pt Satisfied with anesthetic care
[2024-06-07] MEDS: LR 60ML/HR IV SCH (15:41)
[2024-06-07] MEDS: oxyCODONE/ACETAMINOPHEN 5mg/325mg TAB PO PRN (15:56)
[2024-06-07] MEDS ORDERED: oxyCODONE HCL IR 5 MG TAB (IMMEDIATE RELEASE) PO PRN (16:24)
[2024-06-07] MEDS: METHADONE HCL 10 MG TAB PO STA (16:53)
[2024-06-07] MEDS: SODIUM CHLORIDE 0.9% 1,000 ML IV SCH (16:59)
[2024-06-07] MEDS: ONDANSETRON 4 MG OD TAB PO PRN (17:02)
--- NOTE | 2024-06-07 17:13 | Hospitalist Consultation ---
Date of Consultation June 07, 2024 Assessment & Plan (1) Methadone use: Methadone use for chronic pain, no history of IVDU/illicit drug use Reached out to the office of her prescriber Dr. Hernandez in [place] given very high total daily dose of narcotics and concern for risk of respiratory suppression/narcotics, specially given some discrepancy between her med reconciliation, preoperative recommendation and letter, and PDMP recommendation. Office staff at that facility did confirm her correct dose is 50 mg twice daily, and may continue this daily and additionally has been prescribed 5 mg [id number] Tylenol for breakthrough pain when she is discharged. Methadone 50 mg twice daily p.o. continued, breakthrough oxycodone as needed, Tylenol first-line Discussed w/ nursing .Monitor carefully for risk of respiratory suppression. For any evidence of suppression, hold all narcotics given Narcan if needed and moved for end-tidal CO2 monitoring Patient has QT prolongation last QT approximately 498 preop evaluation Continue on telemetry. Magnesium check ordered, optimize to goal of 2.0 Patient may continue her home nadolol daily, she did take this this morning [employer] bedside reassessment. Still has severe pain and is tearful and notes "I just hate lupus pain "and expresses frustration. Patient initially requested whether she can go home and "be uncomfortable there ". Discussed w/ pt that PDMP reflects a 30-day prescription of methadone at home which was recently filled, and if she were to go h ome with the intention to take extra methadone this is extremely dangerous and highly likely to result in respiratory arrest and due to the kinetics of methadone, her high dosing, and delayed onset of side effects. Patient expresses an acknowledgment of this and reports that she will not do this when she goes home; however it also notes that she is frustrated. Just received her evening methadone, and shortly before is received Percocet. Will continue oxy 5-10 for breakthrough, re-asses for additional pain control as needed (2) Chronic prescription opiate use: Chronic pain, fibromyalgia, arthralgias with SLE Continue amitriptyline, multimodal pain control as above Mycophenolate continued, patient is on this for lupus treatment. Benlysta weekly. Patient confirms she is still on these and that these work well for her. She is also on acyclovir for history of suppressed immune system and oral outbreaks. Acyclovir continued. Continue Movantik (3) Tear of left gluteus medius tendon: Gluteal tendon tear S/p right hip endoscopy, gluteal tendon revision and repair Pain control as above DVT prophylaxis, activity recommendations per primary team Neurovascularly intact at bedside assessment (4) Hypothyroidism: Hypothyroidism Continue Synthroid (5) Anxiety: History of Present Illness Attending Physician: Manjit Gold MD History of Present Illness Candy is a 49-year-old female with a past medical history of SLE, GERD, MDD, fibromyalgia, hypertension, hypothyroidism, chronic methadone use for chronic pain with no history of IV or illicit drug use who presented for operative repair of a torn gluteus. We are consulted for postoperative medication management Candy is seen at the bedside. She reports she has 10 out of 10 pain in her right hip, and has diffuse pain through her other joints similar to her prior SLE. She reports she is not sure if she was supposed to take methadone this morning or not so she took 30 mg total. She normally takes 50 mg of methadone twice a day for a total daily dose of 100 mg. This was confirmed in the PDMP. Reached out to the office of her prescriber Dr. Hernandez in [place]. Discussed with nursing who verified her recommendations given that there was some discrepancy between her med reconciliation, patient is understanding of her preoperative recommendations, and PDMP reconciliation. Discussed that she can continue her 50 mg twice daily/100 mg total daily dose. She has already been prescribed 5 mg [id number] Tylenol for breakthrough pain when she is discharged. Patient is on methadone for chronic pain related to her lupus, fibromyalgia, and arthritis. Had failed multiple other regimens and was on oxycodone for a prolonged period prior to switching to methadone. At bedside she awakens easily, appears uncomfortable but not in acute distress. Answers questions appropriately and follows commands. She does not appear sedated. She denies fever, chills, sweats, shortness of breath, difficulty breathing, chest pain, chest pressure. Endorses some diffuse joint aches similar to prior, and greatly increased pain at her surgical site in her right hip which she rates as 10/10 Had pre-op eval with [facility] cardiology. History of long QT. No [place], no CABG/stents, no DM, no hypertension, no hyperlipidemia. History of tobacco use. Preoperative EKG was with incomplete right bundle branch block, QTc 495. To have history of hypertension improved since she quit drinking. Denies recent chest pain. Has had some pleurisy and pain related to her lupus, but has not had anginal symptoms preceding surgery. No chest pain at time of eval. Medical History: Reviewed Medications: Reviewed Surgical History: Reviewed Family history: Reviewed Allergies: Reviewed Social History: Reviewed Code Status: Full Allergies Allergy/AdvReac Type Severity Reaction Status Date / Time cefuroxime Allergy Intermediate Rash Verified 06/07/24 09:59 bupropion [From Wellbutrin] Allergy Rash Verified 06/07/24 10:00 gabapentin Allergy Rash Verified 06/07/24 10:00 Home Medications Medication Instructions Recorded Confirmed Type acyclovir 400 mg tablet 400 mg PO BID 09/17/22 06/07/24 History amitriptyline 150 mg tablet 150 mg PO HS 09/17/22 06/07/24 History chlorhexidine gluconate 0.12 % 1 applic PO BID 09/17/22 06/07/24 History mouthwash cyclobenzaprine 10 mg tablet 10 mg PO TID PRN Pain 09/17/22 06/07/24 History duloxetine 60 mg capsule,delayed 120 mg PO QAM 09/17/22 06/07/24 History release levothyroxine 75 mcg tablet 75 mcg PO QAM 09/17/22 06/07/24 History methylprednisolone 4 mg tablet 4 mg PO QAM 09/17/22 06/07/24 History (Medrol) mometasone 0.1 % topical cream 1 applic topical UD 09/17/22 06/07/24 History mycophenolate mofetil 250 mg 500 mg PO BID chest inflammation 09/17/22 06/07/24 History capsule nystatin 100,000 unit/mL oral 100,000 unit PO UD PRN Skin 09/17/22 06/07/24 History suspension Irritation pilocarpine HCl 7.5 mg tablet 7.5 mg PO TID 09/17/22 06/07/24 History (Salagen (pilocarpine)) pramipexole 0.25 mg tablet 0.75 mg PO HS 09/17/22 06/07/24 History ferrous sulfate 140 mg (45 mg 140 mg PO QAM 10/05/22 06/07/24 History iron) tablet,extended release cyclobenzaprine 10 mg tablet 10 mg PO HS PRN spasms #30 tabs 10/08/22 06/07/24 Rx ondansetron 4 mg disintegrating 4 mg PO Q6H PRN nausea and 11/09/22 06/07/24 Rx tablet vomiting #20 tabs Wheelchair (Manual) #1 ea 06/23/23 06/07/24 Rx methadone 10 mg tablet 103 mg PO QAM 10/25/23 06/07/24 History apple cider vinegar 300 mg tablet 300 mg PO QAM 05/02/24 06/07/24 History belimumab 200 mg/mL subcutaneous 200 mg subcut WK 05/02/24 06/07/24 History auto-injector (Benlysta) bisacodyl 5 mg tablet,delayed 5 mg PO HS PRN Constipation 05/02/24 06/07/24 History release (Dulcolax (bisacodyl)) magnesium 200 mg tablet 400 mg PO DAILY 05/02/24 06/07/24 History nadolol 20 mg tablet 20 mg PO QAM 05/02/24 06/07/24 History naloxegol 25 mg tablet (Movantik) 25 mg PO QAM 05/02/24 06/07/24 History nicotine 5 mg/16 hr daily 5 mg transdermal DAILY 05/02/24 06/07/24 History transdermal patch scopolamine base 1 mg over 3 days 1 patch transdermal Q72H PRN 05/02/24 06/07/24 History transdermal patch Nausea And Vomiting zinc 10 mg tablet 10 mg PO DAILY 05/02/24 06/07/24 History Patient History Medical History (Updated 06/07/24 @ 17:17 by Subhash Ornelas MD) History of small bowel obstruction (~04/2024) hospitalized x 2 days 04/2024; patient states is back at baseline Chronic cough r/t long covid Chronic prescription opiate use Low back pain Hip pain riht Restless leg syndrome Neuropathy bilat feet Pleurisy states current flare up on left side; result of lupus Prolonged QT interval states on nadolol for this; follows w/ Dr Matt Mares in [place] (pcp/cardio) Hx MRSA infection (2021) I&D right hip GERD (gastroesophageal reflux disease) controlled, stable per pt Chronic steroid use Bruises easily Hypothyroidism Fibromyalgia Post traumatic stress disorder Depression Systemic lupus Follows with Rheumatology out of [place] Anxiety Hypertension no current medications Chronic headaches History of COVID-25 October 2020. altered taste still today. chronic cough. Surgical History History of hip surgery x 2 right hip History of carpal tunnel release right carpal tunnel release History of cholecystectomy History of colonoscopy Family History Other No family history of adverse response to anesthesia Social History Smoking Status: Current every day smoker Tobacco Type: Cigarettes Cigarettes Per Day: 2; Second Hand Exposure: No; Do You Dip or Chew Tobacco: No; Hx Alcohol Use: No Hx Substance Use: No Preferred Language: Hungarian Communication Ability: Effective Visual Impairment: No Limitations Drywall Application Supervisor Required: No Beliefs That Will Affect Care: None Current Living Situation: Spouse Current Living Situation Comment: has 1 room mate Feels Safe at Home: Yes Assistive Devices: Glasses Physical Exam Physical Exam: General: A&Ox3. Cooperative. Resting at time of eval, awakens easily. Answers questions appropriately. Generally euthymic, although endorses 10/10 pain in her right hip HEENT: Atraumatic, normocephalic. Vision and hearing grossly intact. Pulm: CTAB A&P. -wheezes, -rales, -rhonchi. Symmetrical chest rise. No increased work of breathing. No respiratory distress. Cardiac: RRR, -mrg. Radial pulses intact and symmetrical. Abdominal: Nontender, nondistended, soft. BS present. Extremities: Ankle dorsiflexion/plantarflexion intact bilaterally. Cap refill brisk in the hallux bilaterally. Sensation of soft touch intact in hands and feet bilaterally. Ice pack overlying right surgical site. Results & Data Results & Data Vital Signs (Past 12 Hours) Vital Signs Temp Pulse Resp BP Pulse Ox O2 Del Method O2 Flow Rate 06/07/24 15:10 36.4 C L 58 L 14 142/94 H 97 Room Air 0 06/07/24 15:00 60 22 134/87 96 Room Air 0 06/07/24 14:50 58 L 13 151/81 H 96 Room Air 0 06/07/24 14:35 77 17 148/89 H 96 Room Air 0 06/07/24 14:25 60 14 153/88 H 95 Room Air 0 06/07/24 14:15 63 20 136/93 96 Room Air 0 06/07/24 14:05 73 12 145/89 H 98 Room Air 0 06/07/24 13:57 36.3 C L 61 16 161/92 H 97 Oxymask 4 06/07/24 10:00 36.5 C 71 17 122/84 97 Room Air PG Care Time/CCT Total # of Minutes Spent Total Time Spent with Patient: Total time spent is greater than 50% in coordination of care (as documented) at patient's floor/unit and/or counseling patient: Coding Level of Care Code 98827 IN/OBS CONSULT LVL 4,60M Diagnoses Methadone use F11.90 Chronic prescription opiate use Z79.891 Tear of left gluteus medius tendon S76.012A Hypothyroidism E03.9 Anxiety F41.9
--- NOTE | 2024-06-07 17:26 | Operative Report ---
PG Post Operative Report Pre & Post Diagnosis Operation Date: 06/07/24 11:05 Pre-Op Diagnosis: Chronic tear of Gluteus Medius Tendon, Tendinopathy Left Gluteal Region, abductor deficiency Post-Op Diagnosis: Chronic tear of Gluteus Medius Tendon, Tendinopathy Left Gluteal Region, abductor deficiency I identified the patient and participated in the time-out.: Yes Procedure Operation Date: 06/07/24 11:05 Actual Procedures p Right Hip Endoscopy, Open Gluteal Tendon Revision Repair with Gluteus Giles Transfer (Right) - Manjit Gold MD Surgeon Manjit Gold MD Die Presser Miri Dunaway PA-C Estimated Blood Loss 50 Findings Consistent with Post-Op Diagnosis Endoscopy showed failure of the previous repair and transfer with no evidence of residual infection. There was a bare trochanter. Suture was present and intact but loose and devoid of tissue. Open repair was indicated. The gluteus medius tissue is atrophied and retracted, without contraction with Bovie. The IT band was thin reconstituted. The TFL and Tmax were identifiable in that contractility. Muscular tenderness flap of the anterior portion of the gluteus giles was transferred down to the repair bed over top of medial row repair of the gluteus medius. The gluteus medius was repaired using 3 Arthrex knotless fiber tack sutures using the length knotless fixation with a lateral 1.8 mm knotless fiber tack 7 stitches. The gluteus max was then transferred underneath a typical 5 anchor double row repair using the medial 2.6 mm knotless fiber tack RCs, with lateral edge luggage tags taken into 5.5 bio composite swivel locks. A knotless linked medial seal, 4 anchor, double row construct was performed using 4 Arthrex 4.75 bio composite swivel lock anchors with knotless mechanism fiber tapes, incorporating the gl uteus medius tendon and a portion of the transferred gluteus giles. Specimens None Anesthesia Type General Complications none Disposition Accompanied Patient To Recovery: No Disposition: Recovery Room Indications 49-year-old female with longstanding abductor deficiency from chronic peritrochanteric pain syndrome. She had failed a previous open gluteus medius tendon repair with gluteus giles transfer due to development of subacute infection that was treated in outside hospital. Presented back to us for ongoing chronic management of her abductor deficiency and peritrochanteric pain. Despite a prolonged period of nonoperative management using pain management, physical therapy, activity modification, and peritrochanteric injections, she remained with significant debilitating peritrochanteric pain and difficulty ambulating. Repeat advanced imaging showed likely failure of the repair and recurrent bursitis. She had no obvious signs of infection. After collaborating with several other disciplines regarding her comorbidities, she was intent on proceeding with any attempted revision repair. We reviewed the risk, benefits, and alternatives in detail, over several visits. Informed consent was obtained in the clinic to proceed with a revision repair, per her desire, as documented in the clinic notes. Description of Procedure On the day of surgery, the patient was greeted in the preoperative holding area. The informed consent was reviewed and confirmed by myself and the patient. The patient identified the surgical site and was marked by me. The patient was then turned over to anesthesia. She was taken to the operating room and placed upon the OR table. Anesthesia was induced and the airway was secured. She was then placed in a left lateral decubitus position for right hip surgery. Beanbag positioner was used to secure the patient. An axillary roll was placed. All bony prominences were well- padded. Brief timeout was performed to confirm laterality before anesthetizing the skin. A total of 60 cc of 0.25% Marcaine were infused to the peritrochanteric region and along the proposed incisions. The right lower extremity was then prepped and draped in the usual sterile fashion for open hip surgery. Surgical timeout was called by the circulating nurse and verified all present. Antibiotics had been infused, and equipment was available and functional. TXA was also infused. Posterolateral approach incision to the hip was planned out incorporating previous healed incision. At the apex of this incision, I made a peritrochanteric superior portal using 11 blade. Trocar was used to enter the peritrochanteric space bluntly. The trochanter was easily palpable. Inflow was established and visualization showed significant bursitis. Spinal needle was used to create a anterolateral peritrochanteric portal. The motorized shaver was introduced and a general debridement was performed. Endoscopic findings included intact suture bridge construct absent of tissue with loose sutures. Several the distal row sutures were ruptured and scarred over. There was general of bursitis and a bare trochanter. Did appear to be fascial edges consistent with a tendon stumps. Given these findings, we opted to proceed with open procedure. Sharp incision was made with an excision of the central scar of the previous incision. Sharp dissection was carried down through fat with hemostasis achieved with electrocautery. The IT band was widely cleared of fat by in preparation for closure. Full-thickness incision was made down through the IT band and carried to the gluteus fascia. This exposed the greater trochanter. There was fibrillation and scar tissue about the trochanter which was sharply debrided. We used an arthroscopic bur and open fashion down to eburnated bone. We were able to identify and dissect out the gluteus medius and minimus tendon stump remnant. It was scarred to the underside of the ATFL. This freed up reasonably well to gain excursion down to the greater trochanter. It did not entirely cover the footprint. There was very minimal contractility to the gluteus medius and minimus. For that reason the gluteus giles transfer was included. Once the tendon stump was dissected free, direct attention to the trochanter and placed our medial row anchors. These were 3 Arthrex 2.6 mm knotless RC fiber tacks. Scorpion and fiber link were used to shuttle the suture through the medius and minimus tendon stump. The knotless mechanism was used to create a linked medial seal. There was a lateral edge that was able to be captured by additional 2 Arthrex 1.8 mm knotless fiber tacks placed in the mid trochanteric footprint. This covered about 50% of the footprint with less than viable contractility of the medius and minimus. Retractors were relieved about the IT band. This was laid over the trochanter. The limb was placed in near neutral abduction. We planned out the gluteus giles transfer from the leading edge of the posterior flap. Flag shaped flap was prepared sharply the fascia overlying the fibers of the gluteus giles. This allowed excursion of the tendinous and fascial portion of the leading edge towards the footprint. Tension was planned based on our anchor position. A free needle was used to pass the length which carried and shuttled through all the remaining FiberTack sutures for our double row repair. The transferred tendon was then pulled down and positioned onto the medial row using manual pressure. The tails of the fiber tape were then . The distal edge of the gluteus medius tendon was captured using fiberlink cinch sutures to extend it down to the lateral row anchor positions. A standard 5 anc hor, double row Xbox suture configuration was then performed to lateral row anchors, including the lateral edge cinch stitches for reduction. 5.5 swivel lock with additional knotless mechanism was deployed into the anterior and distal position at the margin of the greater trochanter adjacent to the vastus ridge. The anterior 1 had to reposition due to lack of purchase. This anchor was removed in its entirety and replaced with a solid 5.5. The remaining suture tails of 3 suture tapes and posterior lateral cinch were captured on another 5.5 swivel lock which was deployed in the posterior and lateral position. The knotless mechanisms of the lateral row anchors were then passed into the lateral edge of the TFL/Gmax transferred tendon, to further tension at lateral edge and reduce it over the medius repair site. The footprint was covered in its entirety. Hip was taken the range of motion to show solid fixation and appropriate tension of the repair and tendon transfer. Thorough saline irrigation was carried out of the repair site. Closure began with the IT band. #1 Vicryl suture was used to reapproximate the IT band layers over top the anterior transferred portion from the posterior limb. Interrupted [id number] sutures were used throughout the IT band and TFL/Gmax repair. Irrigation was carried out once more. #1 Vicryl was used to approximate the adipose tissue above the IT band. 0 Vicryl layer was then used in the deep fat and dermal layer. The dermis was approximated using interrupted 2-0 Vicryl suture, followed by hoda. Wound was dressed with sterile Xeroform, gauze, ABD and contained by Ioban. Patient tolerated procedure well, was extubated the operating room without complication, and transferred to the PACU in stable condition. Disposition: The patient will remain inpatient on telemetry monitoring for prolonged QT syndrome and multiple medical comorbidities. She will be evaluated by physical and Occupational Therapy for discharge planning. The internal medicine service to be consulted for medical comanagement and chronic opioid pain management. Partial weightbearing will be mandatory for the first 6 weeks. Crutches and/or walker can be used. DVT prophylaxis will be aspirin 325 daily on postop day 1. Physical therapy using the [facility] [place] gluteus medius tendon repair protocol can begin at home as planned, immediately postoperative. Routine postop pain medications were prescribed. Physician autopsy assistant attestation: Physician autopsy assistant attestation: Miri Dunaway PA-C was present and scrubbed for the duration of the case. Skilled assistance was essential to prepping/draping, patient positioning, retraction, and assistance with wound closure. The PA was essential to suture management during this complex repair with transfer. I attest to the content of the Intraoperative Record and any orders documented therein. Any exceptions are noted below.
[2024-06-07] MEDS: oxyCODONE HCL IR 5 MG TAB (IMMEDIATE RELEASE) PO PRN (20:06)
[2024-06-07] MEDS: SENNA 8.6 MG TAB PO SCH (20:08)
[2024-06-07] MEDS: DOCUSATE SODIUM 100 MG CAP PO SCH (20:08)
[2024-06-07] MEDS: PRAMIPEXOLE DIHYDROCHLO 0.25 MG TAB PO SCH (20:09)
[2024-06-07] MEDS: ACYCLOVIR 400 MG TAB PO SCH (20:09)
[2024-06-07] MEDS: AMITRIPTYLINE HCL 50 MG TAB PO SCH (20:09)
[2024-06-07] MEDS: MYCOPHENOLATE MOFETIL 250 MG CAP PO SCH (20:10)
[2024-06-07] MEDS: PILOCARPINE HCL 5 MG TABLET PO SCH (20:10)
[2024-06-07] MEDS ORDERED: MELATONIN 3 MG TAB PO PRN (20:34)
[2024-06-07] MEDS: traZODone HCL 50 MG TAB PO ONE (21:37)
[2024-06-08] MEDS: LEVOTHYROXINE SODIUM 75 MCG TABLET PO SCH (04:07)
[2024-06-08] MEDS: CYCLOBENZAPRINE HCL 10 MG TAB PO PRN (06:24)
[2024-06-08 06:35] LABS: BUN Creatinine Ratio 10.7 (10-20); Calcium 8.6 mg/dl (8.6-10.3); Creatinine Clr Calc Pharmacy 129.5 ml/min; Est GFR (African American) 125.1 ml/min; Magnesium 1.8 mg/dl (1.7-2.4); Potassium 3.6 mmol/L (3.5-5.1)
[2024-06-08] MEDS: MAGNESIUM HYDROXIDE SUSP 30 ML UDC PO PRN (08:51)
[2024-06-08] MEDS: METHADONE HCL 10 MG TAB PO SCH (08:51)
[2024-06-08] MEDS: nadoloL 40 MG TAB PO SCH (08:51)
[2024-06-08] MEDS: DULoxetine HCL 60 MG CAP PO SCH (08:52)
[2024-06-08] MEDS: FERROUS SULFATE 325 MG TAB PO SCH (08:52)
[2024-06-08] MEDS: ASPIRIN 325 MG ECTAB PO SCH (08:52)
[2024-06-08] MEDS: MAGNESIUM OXIDE 400 MG TAB PO SCH (08:52)
[2024-06-08] MEDS: MULTIVITAMIN TAB PO SCH (08:52)
[2024-06-08] MEDS ORDERED: NON-FORMULARY MEDICATION (Zinc 10 mg Tablet) PO SCH (09:00)
[2024-06-08] MEDS ORDERED: METHADONE HCL 10 MG TAB PO SCH (09:00)
[2024-06-08] MEDS ORDERED: APPLE CIDER VINEGAR 300 MG PO SCH (09:00)
[2024-06-08] MEDS: oxyCODONE HCL IR 5 MG TAB (IMMEDIATE RELEASE) PO PRN (10:31)
--- NOTE | 2024-06-08 11:59 | Hospitalist Progress Note ---
Date of Service June 08, 2024 Assessment & Plan (1) Methadone use: Plan: Due to chronic pain. High opioid tolerance. Continue methadone 50 mg twice daily. Oxycodone uptitrated to 10 mg every 4 hours as needed. Supportive care. (2) Tear of left gluteus medius tendon: Plan: Postoperative day 1 after right gluteus tendon repair. Orthopedic management. (3) Hypothyroidism: Plan: Stable. Continue current Synthroid replacement therapy (4) Anxiety: Plan: Stable. Continue current medical management Plan Eventual discharge to rehab per primary service Admission and Anticipated Discharge Date Admission Date: June 07, 2024 Subjective Alert and oriented. No distress. Postoperative day #2 after right gluteus muscle tendon repair. Primary concern for her is pain. She already takes high doses of methadone and uses Percocet as needed. I am sure her opioid tolerance is quite high. Oxycodone increased from 5 mg to 10 mg every 6 hours as needed. Eventual discharge to home or rehab per primary service Review of Systems 2 Review of Systems: Constitutional-no fever or chills ENT-no blurred vision, no double vision, no epistaxis, no sore throat Respiratory-no cough, no wheezing, no shortness of breath Cardiac-no palpitations, no chest pain, no syncope GI-no nausea, vomiting, diarrhea, melena, hematochezia -no urinary retention, no urinary incontinence, no dysuria, no hematuria Musculoskeletal-post operative right gluteus area tenderness as expected Skin-no bruising, no rashes, no pruritus Neuro-no isolated weakness, no paresthesia Psych-no depression, no anxiety Physical Exam 2 Physical Exam: General-alert and oriented x3, no fever, no chills HEENT-head atraumatic and normocephalic, pupils equal and reactive to light, extraocular muscles intact Neck-no lymphadenopathy or thyromegaly, trachea midline Chest-clear to auscultation. No rales, wheezing or rhonchi Cardiac-regular rate and rhythm, normal S1 and S2 Abdomen-normal bowel sounds, no hepatosplenomegaly Extremities-bandaged right gluteus surgical area Neuro-cranial nerves II through XII intact, motor and sensory function within normal limits, strength symmetrical, no focal deficits Psych-normal affect, normal mood Results & Data Results & Data Vital Signs (Past 12 Hours) Vital Signs Temp Pulse Pulse Pulse Resp BP Pulse Ox 06/08/24 07:57 36.7 C 61 18 143/92 H 96 06/08/24 07:17 68 06/08/24 03:56 36.6 C 61 18 134/85 95 O2 Del Method 06/08/24 07:57 Room Air 06/08/24 07:17 06/08/24 03:56 Room Air Laboratory Results 06/07/24 10:23 06/08/24 05:46 PG Care Time/CCT Total # of Minutes Spent Total Time Spent with Patient: Total time spent is greater than 50% in coordination of care (as documented) at patient's floor/unit and/or counseling patient: Coding Level of Care Code 24672 SUB INP/OBS CARE 3/50MIN Diagnoses Methadone use F11.90 Tear of left gluteus medius tendon S76.012A Hypothyroidism E03.9 Anxiety F41.9
--- NOTE | 2024-06-08 12:21 | Orthopedic Progress Note ---
Date of Service June 08, 2024 Assessment & Plan (1) Status post hip surgery: - As noted above, the patient is postop day 1 from her right hip surgery as above. She should continue to be flatfoot weightbearing right lower extremity for the next 6 weeks. She may work with physical therapy and Occupational The rapy for gait training as well as transfers. Regarding her pain, did have a detailed conversation with the hospitalist yesterday and messaged them today as her methadone dose was clarified last evening. It is 50 mg twice daily. The original note from the clinic said it was 10 mg twice daily. She will have Tylenol [id number] for pain and Oxy IR for breakthrough pain. We appreciate the assistance of the hospitalist and her pain control as well as for evaluating her other medical comorbidities including her cardiac issues. Subjective Operation Date: 06/07/24 11:05 Actual Procedures p Right Hip Endoscopy, Open Gluteal Tendon Revision Repair with Gluteus Frank Transfer (Right) - Manjit Gold MD Candy is postop day 1 from a right hip endoscopy, open gluteal tendon revision repair with gluteus frank transfer. At today's visit, she is not having any issues with the surgical site. She is resting in her hospital bed. I did visit her this morning around 07:00. She does state that her pain control is not adequate at this time. She did not seem to be in any acute distress at my visit. She looked comfortable in her hospital bed. I did also discussed with the hospitalist today for her concerns of pain control. He is aware. I did review the hospitalist progress note from today as well. She is on a high dose of methadone, 50 mg twice daily. This will be continued and she will have 5 to 10 mg oxy IR every 4 to 6 hours as needed. Review of Systems All systems reviewed & are unremarkable except as noted in HPI & below. Physical Exam General: Alert and oriented. In no acute distress. She is quite calm at today's visit. Did not take dressing off of the right hip due to her being postop day 1. The dressing can come off on postop day 3 unless there is a problem. She has full range of motion of her right foot and ankle. She is able to flex at the knee but states that it hurts at the hip, therefore she does not have full flexion at the knee due to hip pain. Sensation intact. Distal pulses palpated. Cap refill is 3 seconds in the right lower extremity. Results & Data Results & Data Laboratory Results Laboratory Results - last 24 hr 06/07/24 06/08/24 17:07 05:46 Sodium 134 L Potassium 3.6 Chloride 100 Carbon Dioxide 28 Anion Gap 6 BUN 6 Creatinine 0.56 L Est Cr Clr Drug Dosing 129.5 Est GFR ( Amer) 125.1 Est GFR (Non-Af Amer) 108.0 BUN/Creatinine Ratio 10.7 Glucose 108 H Calcium 8.6 Magnesium 2.0 1.8 Diagnostic Findings . PG Care Time/CCT Total # of Minutes Spent Total Time Spent with Patient: Total time spent is greater than 50% in coordination of care (as documented) at patient's floor/unit and/or counseling patient: Supervising Physician Co-Signing Physician Notes I independently saw the patient, her significant other and her mother at the bedside. Very good conversation, I showed her the intraoperative photos from the endoscopy. She seems rather comfortable, but at the end of this, she stated she was struggling with pain. She has needs at least something for the nighttime. I discussed this with the hospitalist, and we agreed that perhaps some adjuvant low-dose Valium for nighttime anxiety may be helpful versus increasing her opioid regimen. She continues to be on a telemetry bed per her feather shaper recommendations until least tomorrow. PT and OT have deemed her in need of acute rehab. Appreciate case management assistance in placement. Rehabilitation guidelines for the first 6 weeks after hip abductor surgery: Partial weightbearing for 4 weeks (~50% with walker or crutches). No active hip abduction or IR for 6 weeks. No passive hip adduction or ER for 6 weeks. Do not push through pain or pinching. Gradual stretching is badillo. Please include modalities for pain control, edema management, and soft tissue mobilization as needed OK to minimize visits for first 6 weeks to coaching on ambulation and transfers. Begin 2-3 visits/week after 6 weeks. Be on the lookout for common problems after hip surgery and protected LE weightbearing: Hip flexor tendonitis, adductor tendonitis, sciatica/piriformis syndrome, pelvic rotations/SI joint pain, low back pain from paraspinal spasm and segmental vertebral rotational lesions. If you encounter any of these problems, please evaluate, assess and treat as you feel appropriate maintaining the above precautions. Please add exercises to mitigate atrophy during restrictions. Gradual progression is essential to avoid flare- ups. If a flare-up occurs, back off with therapeutic exercises until it subsides. Weeks 0-6 (Tissue Protection) - Ambulation and transfers coaching - Quad sets, core/lower abdominal activation - Pain modalities and soft tissue mobilization (after 2 week postop check) Coding Level of Care Code 76360 Post Operative Follow-Up Diagnoses Status post hip surgery Z98.890
--- OUTSIDE RECORDS SUMMARY | 2024-06-08 14:50 | External Medical Summary ---
Author Name Unknown Address Unknown Organization [id number]:[facility] [address] [facility] [address] Laboratory Report Ordering Provider Test Date Status NANCY LUCERO 06/04/2024 10:39:13 Final Cutoff Concentrations:
D rug Level
Methadone 50 ng/mL
EDDP 50 ng/mL

This test was developed and its performance characteristics determined by [employer]. It has not been cleared or approved by the [place] Food and Drug Administration. Observation Date Value Abnormality Reference (Units ) Status METHODOLOGY 06/04/2024 10:39:13 LC-MS/MS Final Methadone, Urine confirmatory 06/04/2024 10:39:13 1727 Above high normal Negative (ng/mL) Final 2-Zhfcgqdcbb-9,5-Dime thyl-3,3-Diphenylpyrr olidine (EDDP) [Mass/volume] in Urine by Confirmatory method 06/04/2024 10:39:13 >4000 Above high normal Negative (ng/mL) Final Performing Location [facility] [place] [facility] [address] [facility] [address]
[2024-06-08] MEDS: diazePAM 5 MG TABLET PO PRN (20:26)
[2024-06-08] MEDS: traZODone HCL 50 MG TAB PO ONE (22:02)
[2024-06-09] MEDS: ACETAMINOPHEN 500 MG TAB PO PRN (04:01)
--- NOTE | 2024-06-09 07:46 | Orthopedic Progress Note ---
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 Remains inpatient for complicated pain management and rehabilitation difficulties. -Continue current pain regimen -Appreciate hospitalist recommendations on pain and overall care -Aspirin for DVT prophylaxis -Dressing should stay in place until postop day 3 -PT/OT to continue: Rehabilitation guidelines for the first 6 weeks after hip abductor surgery: Partial weightbearing for 4 weeks (~50% with walker or crutches). No active hip abduction or IR for 6 weeks. No passive hip adduction or ER for 6 weeks. Do not push through pain or pinching. Gradual stretching is badillo. Please include modalities for pain control, edema management, and soft tissue mobilization as needed OK to minimize visits for first 6 weeks to coaching on ambulation and transfers. Begin 2-3 visits/week after 6 weeks. Dispo: Per PT and OT evaluations today. Telemetry recommendations were for 48 hours which expires later today. Subjective Reports that she finally got some sleep. Was able to walk to the bathroom with her walker 5 or 6 times by her report. Understands she has PT and OT evaluations today. Thinks she will do better. Did not mention lack of pain control. No other issues reported. Review of Systems All systems reviewed & are unremarkable except as noted in HPI & below. Physical Exam Gen: Sleeping on arrival. Easily awakened. Was able to swing her legs to the edge of the bed and sit. She was planning to use the restroom. Seems comfortable but with expected pain with movement Right lower extremity: Dressings clean and dry and intact. Compartments soft. DNVI Constitutional WD/WN, vitals as above no acute distress and not intoxicated appearing Respiratory normal respiratory effort; no labored breathing Cardiovascular Extremities: normal capillary refill Results & Data Results & Data Laboratory Results . Diagnostic Findings . PG Care Time/CCT Total # of Minutes Spent Total Time Spent with Patient: Total time spent is greater than 50% in coordination of care (as documented) at patient's floor/unit and/or counseling patient: Coding Level of Care Code 70021 Post Operative Follow-Up Diagnoses Status post hip surgery Z98.890
[2024-06-09] MEDS: NICOTINE 21 MG TOP SCH (09:00)
--- NOTE | 2024-06-09 11:54 | Hospitalist Progress Note ---
Date of Service June 09, 2024 Assessment & Plan (1) Methadone use: Plan: Due to chronic pain. High opioid tolerance. Continue methadone at current dosage. Oxycodone has been uptitrated to 10 mg every 4 hours as needed. Supportive care. (2) Tear of left gluteus medius tendon: Plan: Postoperative day 2 after right gluteus tendon repair. Orthopedic management. (3) Hypothyroidism: Plan: Stable. Continue current Synthroid replacement therapy (4) Anxiety: Plan: Stable. Continue current medical management Plan Eventual discharge to rehab per primary service Admission and Anticipated Discharge Date Admission Date: June 07, 2024 Subjective Alert and oriented. No new problems. Will discontinue telemetry at this point. Postoperative day #2. Her chronic pain seems to be fairly well-controlled at this point. Awaiting placement at [facility]. Review of Systems 2 Review of Systems: Constitutional-no fever or chills ENT-no blurred vision, no double vision, no epistaxis, no sore throat Respiratory-no cough, no wheezing, no shortness of breath Cardiac-no palpitations, no chest pain, no syncope GI-no nausea, vomiting, diarrhea, melena, hematochezia -no urinary retention, no urinary incontinence, no dysuria, no hematuria Musculoskeletal-post operative right gluteus area tenderness as expected Skin-no bruising, no rashes, no pruritus Neuro-no isolated weakness, no paresthesia Psych-no depression, no anxiety Physical Exam 2 Physical Exam: General-alert and oriented x3, no fever, no chills HEENT-head atraumatic and normocephalic, pupils equal and reactive to light, extraocular muscles intact Neck-no lymphadenopathy or thyromegaly, trachea midline Chest-clear to auscultation. No rales, wheezing or rhonchi Cardiac-regular rate and rhythm, normal S1 and S2 Abdomen-normal bowel sounds, no hepatosplenomegaly Extremities-bandaged right gluteus surgical area Neuro-cranial nerves II through XII intact, motor and sensory function within normal limits, strength symmetrical, no focal deficits Psych-normal affect, normal mood Results & Data Results & Data Vital Signs (Past 12 Hours) Vital Signs Temp Pulse Pulse Resp BP Pulse Ox O2 Del Method 06/09/24 11:46 36.5 C 65 16 93/61 L 95 Room Air 06/09/24 07:47 36.6 C 76 16 130/82 96 Room Air 06/09/24 07:14 70 06/09/24 02:50 37 C 71 16 124/78 96 Room Air Laboratory Results 06/07/24 10:23 06/08/24 05:46 PG Care Time/CCT Total # of Minutes Spent Total Time Spent with Patient: Total time spent is greater than 50% in coordination of care (as documented) at patient's floor/unit and/or counseling patient: Coding Level of Care Code 53874 SUB INP/OBS CARE 2/35MIN Diagnoses Methadone use F11.90 Tear of left gluteus medius tendon S76.012A Hypothyroidism E03.9 Anxiety F41.9
[2024-06-09] MEDS ORDERED: Nursing to Pharmacy Communication SCH (13:45)
[2024-06-09] MEDS: METHADONE HCL 10 MG TAB PO SCH (18:18)
[2024-06-09] MEDS: CYCLOBENZAPRINE HCL 10 MG TAB PO PRN (21:19)
[2024-06-10] MEDS: HYDROCORTISONE 2.5% CR 30 GM TUBE EXT SCH (08:41)
--- NOTE | 2024-06-10 08:48 | Orthopedic Progress Note ---
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 Remains inpatient for complicated pain management and rehabilitation difficulties. -Continue current pain regimen. Refer to hospital service if there is anything to do for her lupus related discomfort outside of restarting her immune modulators which are to be held till 2 weeks postop. -Appreciate hospitalist recommendations on pain and overall care -Aspirin for DVT prophylaxis -Daily dressing changes can continue as needed. Prefer to leave the dressing in place while inpatient. Can wash around the wound after postop day 5 -PT/OT to continue: Rehabilitation guidelines for the first 6 weeks after hip abductor surgery: Partial weightbearing for 4 weeks (~50% with walker or crutches). No active hip abduction or IR for 6 weeks. No passive hip adduction or ER for 6 weeks. Do not push through pain or pinching. Gradual stretching is badillo. Please include modalities for pain control, edema management, and soft tissue mobilization as needed OK to minimize visits for first 6 weeks to coaching on ambulation and transfers. Begin 2-3 visits/week after 6 weeks. Dispo: Per PT and OT evaluations and placement (2) Tear of gluteus medius tendon: (3) Tendinopathy of left gluteal region: (4) Chronic prescription opiate use: Subjective No issues overnight. She does express frustration with general pain. She said the dressing was taken off and she was very sensitive. She states that body pain is increased since being off her Benlysta and steroid. She is feeling a lot of lupus joint related pain and even a pleurisy. Review of Systems All systems reviewed & are unremarkable except as noted in HPI & below. Physical Exam Right hip: Dressing was taken down. There was some blistering in the proximal region of the hip without the de-epithelization. Wound is well-approximated without erythema or drainage. Neurovascular intact Constitutional WD/WN, vitals as above no acute distress and not intoxicated appearing Respiratory normal respiratory effort; no labored breathing Cardiovascular Extremities: normal capillary refill Results & Data Results & Data Laboratory Results No new indicated Diagnostic Findings . PG Care Time/CCT Total # of Minutes Spent Total Time Spent with Patient: Total time spent is greater than 50% in coordination of care (as documented) at patient's floor/unit and/or counseling patient: Coding Level of Care Code 33494 Post Operative Follow-Up Diagnoses Status post hip surgery Z98.890 Tear of gluteus medius tendon S76.019A Tendinopathy of left gluteal region M67.952 Chronic prescription opiate use Z79.891
[2024-06-10] MEDS: methylPREDNISolone 4 MG TAB PO SCH (13:54)
--- NOTE | 2024-06-10 16:43 | Hospitalist Progress Note ---
Date of Service June 10, 2024 Assessment & Plan (1) Methadone use: Plan: Due to chronic pain. High opioid tolerance. Continue methadone at current dosage. Oxycodone has been uptitrated to 10 mg every 4 hours as needed. Supportive care. (2) Tear of left gluteus medius tendon: Plan: Postoperative day 3 after right gluteus tendon repair. Orthopedic management. (3) Hypothyroidism: Plan: Stable. Continue current Synthroid replacement therapy (4) Anxiety: Plan: Stable. Continue current medical management (5) Steroid dependence: Plan: Methylprednisolone has been restarted Plan Eventual discharge to rehab per primary service Admission and Anticipated Discharge Date Admission Date: June 10, 2024 Subjective Alert and oriented. No new problems. Methylprednisolone has been restarted orally which she takes at home. Postoperative day #3. Orthopedic entry noted Review of Systems 2 Review of Systems: Constitutional-no fever or chills ENT-no blurred vision, no double vision, no epistaxis, no sore throat Respiratory-no cough, no wheezing, no shortness of breath Cardiac-no palpitations, no chest pain, no syncope GI-no nausea, vomiting, diarrhea, melena, hematochezia -no urinary retention, no urinary incontinence, no dysuria, no hematuria Musculoskeletal-post operative right gluteus area tenderness as expected Skin-no bruising, no rashes, no pruritus Neuro-no isolated weakness, no paresthesia Psych-no depression, no anxiety Physical Exam 2 Physical Exam: General-alert and oriented x3, no fever, no chills HEENT-head atraumatic and normocephalic, pupils equal and reactive to light, extraocular muscles intact Neck-no lymphadenopathy or thyromegaly, trachea midline Chest-clear to auscultation. No rales, wheezing or rhonchi Cardiac-regular rate and rhythm, normal S1 and S2 Abdomen-normal bowel sounds, no hepatosplenomegaly Extremities-bandaged right gluteus surgical area Neuro-cranial nerves II through XII intact, motor and sensory function within normal limits, strength symmetrical, no focal deficits Psych-normal affect, normal mood Results & Data Results & Data Vital Signs (Past 12 Hours) Vital Signs Temp Pulse Resp BP BP Pulse Ox O2 Del Method 06/10/24 14:48 36.5 C 93 H 16 113/65 94 Room Air 06/10/24 08:08 36.8 C 77 16 108/68 95 Room Air Laboratory Results 06/07/24 10:23 06/08/24 05:46 PG Care Time/CCT Total # of Minutes Spent Total Time Spent with Patient: Total time spent is greater than 50% in coordination of care (as documented) at patient's floor/unit and/or counseling patient: Coding Level of Care Code 41837 SUB INP/OBS CARE 2/35MIN Diagnoses Methadone use F11.90 Tear of left gluteus medius tendon S76.012A Hypothyroidism E03.9 Anxiety F41.9 Steroid dependence F19.20
--- NOTE | 2024-06-11 08:59 | Orthopedic Progress Note ---
Date of Service June 11, 2024 Assessment & Plan (1) Status post hip surgery: POD 34 making expected progress after hip abductor repair with gluteus giles transfer for hip abductor deficiency. Remains inpatient for complicated pain management and rehabilitation difficulties. -Continue current pain regimen. -Appreciate hospitalist recommendations on pain and overall care -Aspirin for DVT prophylaxis -Daily dressing changes can continue as needed. Prefer to leave the dressing in place while inpatient. Can wash around the wound after postop day 5 -PT/OT to continue: Rehabilitation guidelines for the first 6 weeks after hip abductor surgery: Partial weightbearing for 4 weeks (~50% with walker or crutches). No active hip abduction or IR for 6 weeks. No passive hip adduction or ER for 6 weeks. Do not push through pain or pinching. Gradual stretching is badillo. Please include modalities for pain control, edema management, and soft tissue mobilization as needed OK to minimize visits for first 6 weeks to coaching on ambulation and transfers. Begin 2-3 visits/week after 6 weeks. Dispo: Per PT and OT evaluations and placement Subjective Operation Date: 06/07/24 11:05 Actual Procedures p Right Hip Endoscopy, Open Gluteal Tendon Revision Repair with Gluteus Giles Transfer (Right) - Manjit Gold MD Candy is a 49-year-old female postop day 4 from a right hip endoscopy, open gluteal tendon revision repair with gluteus giles transfer. No concerns overnight. Did discuss with her RN today, who is her same RN yesterday, that she has been taking oxycodone at a less frequency. She states that yesterday, she only requested oxy twice in a 12-hour shift. At my visit this morning, the patient is resting comfortably in her hospital bed. She is not in any distress. States that her hip is a little painful from the dressing coming off on postop day 2. Other than that, she is doing fine and is waiting placement, hopefully at [facility]. She has a working with physical therapy/Occupational Therapy daily for partial weightbearing on the right lower extremity. No other questions or concerns today. Review of Systems All systems reviewed & are unremarkable except as noted in HPI & below. Physical Exam General: Alert and oriented. No acute stress. Right hip: Did check her dressing. She has foam dressings on her hip. Did not take them off. Sensation intact. Distal pulses palpated. Cap refill less than 3 seconds. Psychiatric A+Ox3, euthymic affect Results & Data Results & Data Laboratory Results . Diagnostic Findings . PG Care Time/CCT Total # of Minutes Spent Total Time Spent with Patient: Total time spent is greater than 50% in coordination of care (as documented) at patient's floor/unit and/or counseling patient: Coding Level of Care Code 01669 Post Operative Follow-Up Diagnoses Status post hip surgery Z98.890
--- NOTE | 2024-06-11 12:48 | Hospitalist Progress Note ---
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 High opioid tolerance. Continue methadone at current dosage. Oxycodone has been uptitrated to 10 mg every 4 hours as needed. Supportive care. (2) Tear of left gluteus medius tendon: Plan: Postoperative day 4 after right gluteus tendon repair. Orthopedic management. (3) Hypothyroidism: Plan: Stable. Continue current Synthroid replacement therapy (4) Anxiety: Plan: Stable. Continue current medical management (5) Steroid dependence: Plan: Methylprednisolone has been restarted on June 10 Plan Eventual discharge to rehab per primary service. Hopefully today, June 11. She is medically stable Admission and Anticipated Discharge Date Admission Date: June 10, 2024 Subjective Alert and oriented. Vital signs are stable. Postoperative day #4 after repair of right gluteal tendon. She is medically stable at this point for discharge to [facility] rehab. Review of Systems 2 Review of Systems: Constitutional-no fever or chills ENT-no blurred vision, no double vision, no epistaxis, no sore throat Respiratory-no cough, no wheezing, no shortness of breath Cardiac-no palpitations, no chest pain, no syncope GI-no nausea, vomiting, diarrhea, melena, hematochezia -no urinary retention, no urinary incontinence, no dysuria, no hematuria Musculoskeletal-post operative right gluteus area tenderness as expected Skin-no bruising, no rashes, no pruritus Neuro-no isolated weakness, no paresthesia Psych-no depression, no anxiety Physical Exam 2 Physical Exam: General-alert and oriented x3, no fever, no chills HEENT-head atraumatic and normocephalic, pupils equal and reactive to light, extraocular muscles intact Neck-no lymphadenopathy or thyromegaly, trachea midline Chest-clear to auscultation. No rales, wheezing or rhonchi Cardiac-regular rate and rhythm, normal S1 and S2 Abdomen-normal bowel sounds, no hepatosplenomegaly Extremities-bandaged right gluteus surgical area Neuro-cranial nerves II through XII intact, motor and sensory function within normal limits, strength symmetrical, no focal deficits Psych-normal affect, normal mood Results & Data Results & Data Vital Signs (Past 12 Hours) Vital Signs Temp Pulse Resp BP Pulse Ox O2 Del Method 06/11/24 08:08 36.5 C 71 16 104/61 96 Room Air Laboratory Results 06/07/24 10:23 06/08/24 05:46 PG Care Time/CCT Total # of Minutes Spent Total Time Spent with Patient: Total time spent is greater than 50% in coordination of care (as documented) at patient's floor/unit and/or counseling patient: Coding Level of Care Code 41244 SUB INP/OBS CARE 2/35MIN Diagnoses Methadone use F11.90 Tear of left gluteus medius tendon S76.012A Hypothyroidism E03.9 Anxiety F41.9 Steroid dependence F19.20
--- NOTE | 2024-06-12 07:34 | Orthopedic Progress Note ---
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 -Continue current pain regimen. -Appreciate hospitalist recommendations on pain and overall care -Aspirin for DVT prophylaxis -Daily dressing changes can continue as needed. Prefer to leave the dressing in place while inpatient. Can wash around the wound after postop day 5 -PT/OT to continue: Rehabilitation guidelines for the first 6 weeks after hip abductor surgery: Partial weightbearing for 4 weeks (~50% with walker or crutches). No active hip abduction or IR for 6 weeks. No passive hip adduction or ER for 6 weeks. Do not push through pain or pinching. Gradual stretching is badillo. Please include modalities for pain control, edema management, and soft tissue mobilization as needed OK to minimize visits for first 6 weeks to coaching on ambulation and transfers. Begin 2-3 visits/week after 6 weeks. Dispo: Did review case management note. She was approved for [facility]. No beds as of yesterday. Hopefully she is discharged today. Subjective Operation Date: 06/07/24 11:05 Actual Procedures p Right Hip Endoscopy, Open Gluteal Tendon Revision Repair with Gluteus Giles Transfer (Right) - Manjit Gold MD Candy is a 49-year-old female who is postop day 4 from the surgery above. She is doing well. At today's visit, she states that she is a little achy but not in much pain. Did review case management note from last evening, she was approved at [facility], however there were no beds yesterday. Hope is to have her discharged today to [facility]. Review of Systems All systems reviewed & are unremarkable except as noted in HPI & below. Physical Exam General: Alert and oriented. No acute stress. Right hip: She does have the Optifoam dressings on. I did remove some of them to evaluate the skin tear and the surgical wound. Skin tear is healing fine. Does have some redness around the area but looks like irritation from dressings. Wound check satisfactory. No edema, drainage or dehiscence of the wound. Christina are intact. She is moving around well in her bed. Psychiatric A+Ox3, euthymic affect Results & Data Results & Data Laboratory Results . Diagnostic Findings . PG Care Time/CCT Total # of Minutes Spent Total Time Spent with Patient: Total time spent is greater than 50% in coordination of care (as documented) at patient's floor/unit and/or counseling patient: Coding Level of Care Code 33551 Post Operative Follow-Up Diagnoses Status post hip surgery Z98.890
--- NOTE | 2024-06-12 11:50 | Hospitalist Progress Note ---
Date of Service June 12, 2024 Assessment & Plan (1) Methadone use: Plan: Due to chronic pain. High opioid tolerance. Continue methadone at current dosage. Oxycodone has been uptitrated to 10 mg every 4 hours as needed. Supportive care. (2) Tear of left gluteus medius tendon: Plan: Postoperative day 5 after right gluteus tendon repair. Orthopedic management. (3) Hypothyroidism: Plan: Stable. Continue current Synthroid replacement therapy (4) Anxiety: Plan: Stable. Continue current medical management (5) Steroid dependence: Plan: Methylprednisolone has been restarted on June 10 Plan Eventual discharge to rehab per primary service. Hopefully today, June 12. She is medically stable Admission and Anticipated Discharge Date Admission Date: June 10, 2024 Subjective Alert and oriented. Hemodynamically stable. No complaints. Orthopedic entry noted. [facility] Review of Systems 2 Review of Systems: Constitutional-no fever or chills ENT-no blurred vision, no double vision, no epistaxis, no sore throat Respiratory-no cough, no wheezing, no shortness of breath Cardiac-no palpitations, no chest pain, no syncope GI-no nausea, vomiting, diarrhea, melena, hematochezia -no urinary retention, no urinary incontinence, no dysuria, no hematuria Musculoskeletal-post operative right gluteus area tenderness as expected Skin-no bruising, no rashes, no pruritus Neuro-no isolated weakness, no paresthesia Psych-no depression, no anxiety Physical Exam 2 Physical Exam: General-alert and oriented x3, no fever, no chills HEENT-head atraumatic and normocephalic, pupils equal and reactive to light, extraocular muscles intact Neck-no lymphadenopathy or thyromegaly, trachea midline Chest-clear to auscultation. No rales, wheezing or rhonchi Cardiac-regular rate and rhythm, normal S1 and S2 Abdomen-normal bowel sounds, no hepatosplenomegaly Extremities-bandaged right gluteus surgical area Neuro-cranial nerves II through XII intact, motor and sensory function within normal limits, strength symmetrical, no focal deficits Psych-normal affect, normal mood Results & Data Results & Data Vital Signs (Past 12 Hours) Vital Signs Temp Pulse Resp BP Pulse Ox O2 Del Method 06/12/24 07:52 36.5 C 73 16 150/89 H 96 Room Air Laboratory Results 06/07/24 10:23 06/08/24 05:46 PG Care Time/CCT Total # of Minutes Spent Total Time Spent with Patient: Total time spent is greater than 50% in coordination of care (as documented) at patient's floor/unit and/or counseling patient: Coding Level of Care Code 68126 SUB INP/OBS CARE 2/35MIN Diagnoses Methadone use F11.90 Tear of left gluteus medius tendon S76.012A Hypothyroidism E03.9 Anxiety F41.9 Steroid dependence F19.20
--- NOTE | 2024-06-13 08:39 | Discharge Summary ---
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 Admission Exam (Per Admitting) Constitutional well developed and well nourished; no acute distress and not intoxicated appearing Respiratory normal respiratory effort; no respiratory distress Cardiovascular Extremities: normal capillary refill; no edema Skin no rashes, warm and dry Psychiatric A+Ox3, euthymic affect Principal Diagnosis Same as "Discharge Diagnosis" noted below under Discharge Instructions. Discharge Exam General: Alert and oriented. No acute stress. Right hip: She does have the Optifoam dressings on. I did remove some of them to evaluate the skin tear and the surgical wound. Skin tear is healing fine. Does have some redness around the area but looks like irritation from dressings. Wound check satisfactory. No edema, drainage or dehiscence of the wound. Cantril are intact. She is moving around well in her bed. Constitutional well developed and well nourished; no acute distress and not intoxicated appearing Respiratory normal respiratory effort; no respiratory distress Cardiovascular Extremities: normal capillary refill; no edema Skin no rashes, warm and dry Psychiatric A+Ox3, euthymic affect Discharge Data Consultations 06/07/24 14:07 Consult Hospitalist Routine Procedures Performed Operation Date: 06/07/24 11:05 Actual Procedures p Right Hip Endoscopy, Open Gluteal Tendon Revision Repair with Gluteus Giles Transfer (Right) - Manjit Gold MD Hospital Course (1) Status post hip surgery: (2) Tear of gluteus giles tendon: (3) Tear of gluteus medius tendon: Plan Admitted postoperatively due to ambulatory dysfunction, weightbearing restrictions in need of rehabilitation guidance and complicated pain management. No complications in postoperative course. Rehabilitation needs identified via consultation with PT and OT. As of Postoperative Day 6, she is stable and in need of greater than 3 hrs of rehabilitation services daily. PG Care Time/CCT Total # of Minutes Spent Total Time Spent with Patient: Total time spent is greater than 50% in coordination of care (as documented) at patient's floor/unit and/or counseling patient: Discharge Plan Discharge Items Patient Disposition: Transfer Detention Fac Reason For Visit: Tear of Gluteus Medius Tendon, Tendinopathy Left Discharge Diagnosis: Hip abductor deficiency Activity: Per Instructions section Non-emergency contact: Surgeon Call non-emergency contact if: your temperature is above 101 Follow-up/Referrals: Manjit Gold MD [Surgeon] - PCP,NO [Physician] - Diet: Regular Addtl Attending Provider Instructions: Manjit Gold MD [facility] [address] [facility], [place] [address] DISCHARGE INSTRUCTIONS FOR OPEN OR ARTHROSCOPIC GLUTEAL TENDON REPAIR WEIGHTBEARING: Partial weightbearing for 6 weeks Crutches or Walker at all times. Partial (<50%) Weightbearing means may place your foot on the ground, but do not transfer more than 50% of your weight or stride on the leg. HIP MOTION: Try to relax with foot pointed forward. Comfort will be your guide. Physical therapy will work to teach you how to move appropriately. No active hip abduction (moving foot outward or away from body) Avoid active IR (turning foot or knee inward) for 6 weeks. Avoid passive hip adduction (crossing your legs) for 6 weeks. Do not push through pain or pinching. Gradual stretching is badillo. WOUND CARE: Leave the dressing in place and keep the area clean and dry. If the OLY Wrap becomes undone or bothersome, you may remove or adjust. There is a sterile stick-on dressing underneath that can remain. The OLY wrap can be replaced to hold ice packs, if desired. After 3 days, you may remove your dressing. DO NOT REMOVE ANY SUTURES OR ABY. THEY WILL BE REMOVED BY YOUR ORTHOPEDIC TEAM IN CLINIC. If you have paper tape strips over the incisions, do not remove them. They will gradually fall off over 2-3 weeks. You may lose some earlier, which is not a problem. After removing your dressing, you may begin to shower. Do not soak the incision. Allow gentle soap and water to run over the wound(s) and pat dry. Please cover the incision(s) with a clean, dry dressing, as needed. Do not use any ointments or topical medications unless directed by your surgeon. Do not submerse the incisions in water no pools, oceans, lakes, jacuzzis, bathtubs, etc for at least 3 weeks. PAIN CONTROL If you had an ANESTHETIC BLOCK, the effects will wear off in 6-12 hours. When you feel sensation returning, be ready with a pain medication. You may experience rebound pain for a few hours before pain subsides. Stay ahead of the pain with your medications. Use the cryocuff as directed, instead of ice. Use for 30 minutes per hour. Do not leave in place longer than 30 minutes, especially when your block is in effect, to prevent frostbite or thermal injury. MEDICATIONS: 1. Methadone: per your pain management clinic recommendations. 2. Oxycodone (OxyIR)(per your pain management clinic recommendations): 1-2 tablet(s) orally every 4 hours for pain as needed. Use with Tylenol. Begin tapering OxyIR as soon as possible: reduce from 2 to 1 pills per dose, then spread out the doses over greater time intervals, then try to use only for therapy or for comfort while sleeping. Continue to use regular Tylenol until pain subsides. 2. Tylenol (325mg): 3 tablets every 8 hours orally. Regular dosing of Tylenol is an important part of your baseline pain control. Do not taper Tylenol until you have successfully tapered off of regular OxyIR. Do not take more than 3000mg of Tylenol per day. 3. Aspirin 325m tablet orally every day for 6 weeks to reduce the risk of dangerous blood clots. CONSTIPATION: Narcotic pain medications can slow down your digestive track, leading to constipation. Stay hydrated. While taking narcotics, the use of stool softeners is recommended. Two over the counter options are: 1. Colace (100mg): take 1-2 tabs twice daily to avoid constipation from OxyIR or other narcotics. 2. Miralax 1 tablespoon in a glass of water 2 times daily until normal bowel movements FOLLOWUP: 1. Ortho Clinic: You should be seen in 10-14 days. Please call immediately to schedule if you do not have an appointment. WHEN TO CALL. If you develop any of the following symptoms, please contact the Orthopedic Clinic at [phone]: Temperature greater than 101 taken twice, difficulty breathing, bleeding, fever and chills, increased pain unrelieved by pain meds, uncomfortable cast or splint, or any other concerns. Rehabilitation guidelines for the first 6 weeks after hip abductor surgery: Partial weightbearing for 4 weeks (~50% with walker or crutches). No active hip abduction or IR for 6 weeks. No passive hip adduction or ER for 6 weeks. Do not push through pain or pinching. Gradual stretching is badillo. Please include modalities for pain control, edema management, and soft tissue mobilization as needed OK to minimize visits for first 6 weeks to coaching on ambulation and transfers. Begin 2-3 visits/week after 6 weeks. Be on the lookout for common problems after hip surgery and protected LE weightbearing: Hip flexor tendonitis, adductor tendonitis, sciatica/piriformis syndrome, pelvic rotations/SI joint pain, low back pain from paraspinal spasm and segmental vertebral rotational lesions. If you encounter any of these problems, please evaluate, assess and treat as you feel appropriate maintaining the above precautions. Please add exercises to mitigate atrophy during restrictions. Gradual progression is essential to avoid flare- ups. If a flare-up occurs, back off with therapeutic exercises until it subsides. Weeks 0-6 (Tissue Protection) - Ambulation and transfers coaching - Quad sets, core/lower abdominal activation - Pain modalities and soft tissue mobilization (after 2 week postop check) Pending Studies at Discharge: No Stand-Alone Forms: My [facility] Skilled Items Patient informed of condition?: Yes DNR: Yes Discharge Level of Care: Acute rehab Communicable Disease: No Discharge Prognosis: Stable Lines: None Urinary Catheter: No Medications and DC Order Prescriptions: Continued cyclobenzaprine 10 mg tablet 10 mg PO HS PRN (Reason: spasms) Qty: 30 0RF (DME) Wheelchair (Manual) Device See Rx Instructions .Route Qty: 1 0RF Rx Instructions: As directed methadone 10 mg tablet 103 mg PO QAM Patient Comments: reported per [facility] chlorhexidine gluconate 0.12 % mouthwash 1 applic PO BID pilocarpine HCl [Salagen (pilocarpine)] 7.5 mg tablet 7.5 mg PO TID methylprednisolone [Medrol] 4 mg tablet 4 mg PO QAM pramipexole 0.25 mg tablet 0.75 mg PO HS levothyroxine 75 mcg tablet 75 mcg PO QAM amitriptyline 150 mg tablet 150 mg PO HS duloxetine 60 mg capsule,delayed release(DR/EC) 120 mg PO QAM acyclovir 400 mg tablet 400 mg PO BID cyclobenzaprine 10 mg tablet 10 mg PO TID PRN (Reason: Pain) mometasone 0.1 % cream 1 applic topical UD mycophenolate mofetil 250 mg capsule 500 mg PO BID nystatin 100,000 unit/mL suspension 100,000 unit PO UD PRN (Reason: Skin Irritation) ondansetron 4 mg tablet,disintegrating 4 mg PO Q6H PRN (Reason: nausea and vomiting) Qty: 20 2RF ferrous sulfate 140 mg (45 mg iron) Tablet Extended Release 140 mg PO QAM nadolol 20 mg Tablet 20 mg PO QAM bisacodyl [Dulcolax (bisacodyl)] 5 mg Tablet,Delayed Release (Dr/Ec) 5 mg PO HS PRN (Reason: Constipation) scopolamine base 1 mg over 3 days Patch 3 Day 1 patch TRANSDERMAL Q72H PRN (Reason: Nausea And Vomiting) zinc 10 mg Tablet 10 mg PO DAILY magnesium 200 mg Tablet 400 mg PO DAILY apple cider vinegar 300 mg Tablet 300 mg PO QAM Movantik 25 mg Tablet 25 mg PO QAM Rx Instructions: must be taken on empty stomach; no food 1 hr after or 2-3 hrs before dose nicotine 5 mg/16 hr Patch 24 Hour 5 mg TRANSDERMAL DAILY Held Benlysta 200 mg/mL auto-injector 200 mg SUBCUT WK Hold Instructions: Resume on 07/13/24. post op recommendations Discharge Orders: Discharge Order (Routine); Ordered 06/12/24 Ordered By: Miri Dunaway Admission Data Admit Date/Time: 06/10/24 08:48 Attending Provider: Manjit Gold Admit Provider: Manjit Gold Primary Care Provider: Matt Hernandez Other Providers: [facility]; Kaleb Nicole
[2024-06-13] MEDS: NICOTINE 7 MG/24 HR TDSY TD SCH (10:55)
--- NOTE | 2024-06-13 13:05 | Hospitalist Progress Note ---
Date of Service June 13, 2024 Assessment & Plan (1) Methadone use: Plan: Due to chronic pain. High opioid tolerance. Continue methadone at current dosage. Oxycodone has been uptitrated to 10 mg every 4 hours as needed. Supportive care. (2) Tear of left gluteus medius tendon: Plan: Postoperative day 5 after right gluteus tendon repair. Orthopedic management. (3) Hypothyroidism: Plan: Stable. Continue current Synthroid replacement therapy (4) Anxiety: Plan: Stable. Continue current medical management (5) Steroid dependence: Plan: Methylprednisolone has been restarted on June 10 (6) Tobacco use: Plan: NicoDerm 7 mg patch daily. Smoking cessation recommended Plan Eventual discharge to rehab per primary service when arrangements are finalized. She is medically stable Admission and Anticipated Discharge Date Admission Date: June 10, 2024 Subjective Alert and oriented. She has requested a NicoDerm patch. She smokes less than 1 pack a day so a 7 mg patch should suffice. Awaiting eventual discharge by primary service to [facility]. Otherwise, medically stable Review of Systems 2 Review of Systems: Constitutional-no fever or chills ENT-no blurred vision, no double vision, no epistaxis, no sore throat Respiratory-no cough, no wheezing, no shortness of breath Cardiac-no palpitations, no chest pain, no syncope GI-no nausea, vomiting, diarrhea, melena, hematochezia -no urinary retention, no urinary incontinence, no dysuria, no hematuria Musculoskeletal-post operative right gluteus area tenderness as expected Skin-no bruising, no rashes, no pruritus Neuro-no isolated weakness, no paresthesia Psych-no depression, no anxiety Physical Exam 2 Physical Exam: General-alert and oriented x3, no fever, no chills HEENT-head atraumatic and normocephalic, pupils equal and reactive to light, extraocular muscles intact Neck-no lymphadenopathy or thyromegaly, trachea midline Chest-clear to auscultation. No rales, wheezing or rhonchi Cardiac-regular rate and rhythm, normal S1 and S2 Abdomen-normal bowel sounds, no hepatosplenomegaly Extremities-bandaged right gluteus surgical area Neuro-cranial nerves II through XII intact, motor and sensory function within normal limits, strength symmetrical, no focal deficits Psych-normal affect, normal mood Results & Data Results & Data Vital Signs (Past 12 Hours) Vital Signs Temp Pulse Resp BP Pulse Ox O2 Del Method 06/13/24 07:55 36.3 C L 82 16 127/78 93 Room Air Laboratory Results 06/07/24 10:23 06/08/24 05:46 PG Care Time/CCT Total # of Minutes Spent Total Time Spent with Patient: Total time spent is greater than 50% in coordination of care (as documented) at patient's floor/unit and/or counseling patient: Coding Level of Care Code 73233 SUB INP/OBS CARE 3/50MIN Diagnoses Methadone use F11.90 Tear of left gluteus medius tendon S76.012A Hypothyroidism E03.9 Anxiety F41.9 Steroid dependence F19.20 Tobacco use Z72.0
--- NOTE | 2024-06-14 11:11 | Orthopedic Progress Note ---
Date of Service June 14, 2024 Assessment & Plan (1) History of hip surgery: POD 7. She is doing well and is stable orthopedically and medically per hospitalist. Awaiting bed at [facility] rehab. -Continue current pain regimen. -Appreciate hospitalist recommendations on pain and overall care -Aspirin for DVT prophylaxis -Daily dressing changes can continue as needed. Prefer to leave the dressing in place while inpatient. Can wash around the wound after postop day 5 -PT/OT to continue: Rehabilitation guidelines for the first 6 weeks after hip abductor surgery: Partial weightbearing for 4 weeks (~50% with walker or crutches). No active hip abduction or IR for 6 weeks. No passive hip adduction or ER for 6 weeks. Do not push through pain or pinching. Gradual stretching is badillo. Please include modalities for pain control, edema management, and soft tissue mobilization as needed OK to minimize visits for first 6 weeks to coaching on ambulation and transfers. Begin 2-3 visits/week after 6 weeks. Dispo: [facility] when bed is available. She does have an authorization. Subjective Operation Date: 06/07/24 11:05 Actual Procedures p Right Hip Endoscopy, Open Gluteal Tendon Revision Repair with Gluteus Giles Transfer (Right) - Manjit Gold MD POD 7 from the surgery above. She is still waiting for a bed at [facility] rehab. She was authorized for inpatient rehab there. At this morning's check, the patient states she is doing well, however yesterday tripped going into her bed and felt a pull in her right hip. Her pain is controlled. No other questions or concerns today. Review of Systems All systems reviewed & are unremarkable except as noted in HPI & below. Physical Exam Gen: alert and oriented. In no acute distress. Resting in hospital bed this AM. Right hip: wound check satisfactory. Christina intact. Skin tear healing well and there is little to no erythema around the skin tear or wound. No drainage, edema or other abnormalities. She is moving well in her bed to adjust independantly. Results & Data Results & Data Laboratory Results . Diagnostic Findings . PG Care Time/CCT Total # of Minutes Spent Total Time Spent with Patient: Total time spent is greater than 50% in coordination of care (as documented) at patient's floor/unit and/or counseling patient: Coding Level of Care Code 49849 Post Operative Follow-Up Diagnoses History of hip surgery Z98.890
--- NOTE | 2024-06-14 11:30 | Hospitalist Progress Note ---
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 High opioid tolerance. Continue methadone at current dosage. Oxycodone has been uptitrated to 10 mg every 4 hours as needed. Supportive care. (2) Tear of left gluteus medius tendon: Plan: Postoperative day 7 after right gluteus tendon repair. Orthopedic management. (3) Hypothyroidism: Plan: Stable. Continue current Synthroid replacement therapy (4) Anxiety: Plan: Stable. Continue current medical management (5) Steroid dependence: Plan: Methylprednisolone was restarted on June 10 (6) Tobacco use: Plan: NicoDerm 7 mg patch daily. Smoking cessation recommended Plan Eventual discharge to rehab per primary service when arrangements are finalized. She is medically stable Admission and Anticipated Discharge Date Admission Date: June 10, 2024 Subjective Alert and oriented. She feels she twisted the right leg inadvertently but no overt injury at the surgical site. She was instructed to inform the orthopedic physicians when they see her. Postoperative day #7. So far, the NicoDerm patch seems to be helping. Hopefully she can go to [facility] soon. Review of Systems 2 Review of Systems: Constitutional-no fever or chills ENT-no blurred vision, no double vision, no epistaxis, no sore throat Respiratory-no cough, no wheezing, no shortness of breath Cardiac-no palpitations, no chest pain, no syncope GI-no nausea, vomiting, diarrhea, melena, hematochezia -no urinary retention, no urinary incontinence, no dysuria, no hematuria Musculoskeletal-post operative right gluteus area tenderness as expected Skin-no bruising, no rashes, no pruritus Neuro-no isolated weakness, no paresthesia Psych-no depression, no anxiety Physical Exam 2 Physical Exam: General-alert and oriented x3, no fever, no chills HEENT-head atraumatic and normocephalic, pupils equal and reactive to light, extraocular muscles intact Neck-no lymphadenopathy or thyromegaly, trachea midline Chest-clear to auscultation. No rales, wheezing or rhonchi Cardiac-regular rate and rhythm, normal S1 and S2 Abdomen-normal bowel sounds, no hepatosplenomegaly Extremities-bandaged right gluteus surgical area Neuro-cranial nerves II through XII intact, motor and sensory function within normal limits, strength symmetrical, no focal deficits Psych-normal affect, normal mood Results & Data Results & Data Vital Signs (Past 12 Hours) Vital Signs Temp Pulse Resp BP Pulse Ox O2 Del Method 06/14/24 09:00 Room Air 06/14/24 07:19 36.4 C L 66 18 127/80 95 Room Air Laboratory Results 06/07/24 10:23 06/08/24 05:46 PG Care Time/CCT Total # of Minutes Spent Total Time Spent with Patient: Total time spent is greater than 50% in coordination of care (as documented) at patient's floor/unit and/or counseling patient: Coding Level of Care Code 12523 SUB INP/OBS CARE 2/35MIN Diagnoses Methadone use F11.90 Tear of left gluteus medius tendon S76.012A Hypothyroidism E03.9 Anxiety F41.9 Steroid dependence F19.20 Tobacco use Z72.0
[2024-06-15 08:30] VITALS: TEMP 97.7
--- NOTE | 2024-06-15 08:42 | Orthopedic Progress Note ---
Date of Service June 15, 2024 Assessment & Plan (1) Status post hip surgery: POD 8. She is doing well and is stable orthopedically and medically per hospitalist. Awaiting bed at [facility] rehab. -Continue current pain regimen. -Appreciate hospitalist recommendations on pain and overall care -Aspirin for DVT prophylaxis -Daily dressing changes can continue as needed. Prefer to leave the dressing in place while inpatient. Can wash around the wound after postop day 5 -PT/OT to continue: Rehabilitation guidelines for the first 6 weeks after hip abductor surgery: Partial weightbearing for 4 weeks (~50% with walker or crutches). No active hip abduction or IR for 6 weeks. No passive hip adduction or ER for 6 weeks. Do not push through pain or pinching. Gradual stretching is badillo. Please include modalities for pain control, edema management, and soft tissue mobilization as needed OK to minimize visits for first 6 weeks to coaching on ambulation and transfers. Begin 2-3 visits/week after 6 weeks. Dispo: saw case management note which states [facility] no longer offering bed since she is walking independently. They recommend home health. Subjective Operation Date: 06/07/24 11:05 Actual Procedures p Right Hip Endoscopy, Open Gluteal Tendon Revision Repair with Gluteus Giles Transfer (Right) - Manjit Gold MD POD 8 from the surgery above. Still waiting for a bed at [facility]. Has a dull ache in her right hip. Other than that, she is walking independantly and is doing well. Review of Systems All systems reviewed & are unremarkable except as noted in HPI & below. Physical Exam Gen: alert and oriented. In no acute distress. Resting in hospital bed this AM. Right hip: wound check satisfactory. Christina intact. Skin tear healing well and there is little to no erythema around the skin tear or wound. No drainage, edema or other abnormalities. She is moving well in her bed to adjust independantly. Psychiatric A+Ox3, euthymic affect Results & Data Results & Data Laboratory Results . Diagnostic Findings . PG Care Time/CCT Total # of Minutes Spent Total Time Spent with Patient: Total time spent is greater than 50% in coordination of care (as documented) at patient's floor/unit and/or counseling patient: Coding Level of Care Code 05792 Post Operative Follow-Up Diagnoses Status post hip surgery Z98.890
[2024-06-15] MEDS: PANTOprazole 40 MG TAB PO SCH (11:58)
--- NOTE | 2024-06-15 12:16 | Hospitalist Progress Note ---
Date of Service June 15, 2024 Assessment & Plan (1) Methadone use: Plan: Due to chronic pain. High opioid tolerance. Continue methadone at current dosage. Oxycodone has been uptitrated to 10 mg every 4 hours as needed. Supportive care. (2) Tear of left gluteus medius tendon: Plan: Postoperative day 8 after right gluteus tendon repair. Orthopedic management. (3) Hypothyroidism: Plan: Stable. Continue current Synthroid replacement therapy (4) Anxiety: Plan: Stable. Continue current medical management (5) Steroid dependence: Plan: Methylprednisolone was restarted on June 10 (6) Tobacco use: Plan: NicoDerm 7 mg patch daily while hospitalized. Smoking cessation recommended Plan Apparently she is ambulating too well at this time and insurance has denied IPR placement. Primary service will discharge her to home with home health services. She is medically stable Admission and Anticipated Discharge Date Admission Date: June 10, 2024 Subjective Medically stable. Apparently she is ambulating too well to go to [facility] which has been denied by insurance. She will go home with home health services today per primary service. Review of Systems 2 Review of Systems: Constitutional-no fever or chills ENT-no blurred vision, no double vision, no epistaxis, no sore throat Respiratory-no cough, no wheezing, no shortness of breath Cardiac-no palpitations, no chest pain, no syncope GI-no nausea, vomiting, diarrhea, melena, hematochezia -no urinary retention, no urinary incontinence, no dysuria, no hematuria Musculoskeletal-post operative right gluteus area tenderness as expected Skin-no bruising, no rashes, no pruritus Neuro-no isolated weakness, no paresthesia Psych-no depression, no anxiety Physical Exam 2 Physical Exam: General-alert and oriented x3, no fever, no chills HEENT-head atraumatic and normocephalic, pupils equal and reactive to light, extraocular muscles intact Neck-no lymphadenopathy or thyromegaly, trachea midline Chest-clear to auscultation. No rales, wheezing or rhonchi Cardiac-regular rate and rhythm, normal S1 and S2 Abdomen-normal bowel sounds, no hepatosplenomegaly Extremities-bandaged right gluteus surgical area Neuro-cranial nerves II through XII intact, motor and sensory function within normal limits, strength symmetrical, no focal deficits Psych-normal affect, normal mood Results & Data Results & Data Vital Signs (Past 12 Hours) Vital Signs Temp Pulse Resp BP Pulse Ox O2 Del Method 06/15/24 08:28 36.5 C 70 19 125/75 94 Room Air Laboratory Results 06/07/24 10:23 06/08/24 05:46 PG Care Time/CCT Total # of Minutes Spent Total Time Spent with Patient: Total time spent is greater than 50% in coordination of care (as documented) at patient's floor/unit and/or counseling patient: Coding Level of Care Code 13585 SUB INP/OBS CARE 2/35MIN Diagnoses Methadone use F11.90 Tear of left gluteus medius tendon S76.012A Hypothyroidism E03.9 Anxiety F41.9 Steroid dependence F19.20 Tobacco use Z72.0
[2024-06-15 14:42] VITALS: BP 105/73; PULSE 72; RESP 16; O2SAT 93
== END 2024-06-15 17:39 | disposition home health service (06) | DRG 501 ==
LOC: 2N 09:37 → ASU 09:37 → 3W 06-09 14:16